=== PATIENT | male | born 1955 | race Asian ===

== ENCOUNTER 2018-01-11 14:17 | Emergency (ER) | payer SELFPAY ==
[2018-01-11 14:44] LABS: ADD MAN DIFF? NO
[2018-01-11 14:47] LABS: BASO # 0.1 x10^3/uL (0.0-0.2); BASO % 1 % (0-3); EOS # 0.3 x10^3/uL (0.0-0.7); EOS % 3 % (0-3); HEMATOCRIT 39.8 % (39.0-53.0); HEMOGLOBIN 13.2 g/dL (13.0-17.5); LYMPH # 2.4 x10^3/uL (1.0-4.8); LYMPH % 30 % (24-48); MEAN CORPUSCULAR HEMOGLOBIN 29 pg (25-35); MEAN CORPUSCULAR HGB CONC 33 g/dL (31-37); MEAN CORPUSCULAR VOLUME 88 fL (79-100); MONO # 0.9 x10^3/uL (0.0-1.1); MONO % 11 % (0-9); NEUT # 4.5 x10^3uL (1.8-7.7); NEUT % 56 % (31-73); PLATELET COUNT 216 x10^3/uL (140-400); RED BLOOD COUNT 4.55 x10^6/uL (4.30-5.70); RED CELL DISTRIBUTION WIDTH 15.3 % (11.5-14.5)
[2018-01-11] MEDS: fentaNYL PF VIAL 100 MCG/2 ML VIAL IV (14:49)
[2018-01-11 14:57] LABS: INR 2.8 (0.8-1.1); PROTHROMBIN TIME PATIENT 28.9 SEC (11.7-14.0)
[2018-01-11 15:02] LABS: ANION GAP 9 (6-14); BLOOD UREA NITROGEN 20 mg/dL (8-26); BUN/CREATININE RATIO 13 (6-20); CALCIUM 8.4 mg/dL (8.5-10.1); CARBON DIOXIDE 24 mmol/L (21-32); CHLORIDE 102 mmol/L (98-107); CREATININE 1.5 mg/dL (0.7-1.3); GFR 47.3; GLUCOSE 210 mg/dL (70-99); POTASSIUM 4.2 mmol/L (3.5-5.1); SODIUM 135 mmol/L (136-145)
[2018-01-11 15:07] LABS: ALBUMIN 3.5 g/dL (3.4-5.0); ALBUMIN/GLOBULIN RATIO 0.8 (1.0-1.7); ALK PHOS 90 U/L (46-116); ALT (SGPT) 20 U/L (16-63); AST (SGOT) 18 U/L (15-37); TOTAL BILIRUBIN 0.9 mg/dL (0.2-1.0); TOTAL PROTEIN 8.1 g/dL (6.4-8.2)
[2018-01-11 15:09] LABS: TROPONINI < 0.017 ng/mL (0.000-0.055)
== END 2018-01-11 15:58 | disposition home or self-care (01) ==
LOC: ER 14:17
DX: R07.89 Other chest pain (principal); I50.9 Heart failure, unspecified; I48.91 Unspecified atrial fibrillation; Z79.01 Long term (current) use of anticoagulants; V43.52XA Car driver injured in collision with other type car in traffic accident, initial encounter; Y93.89 Activity, other specified; Y92.488 Other paved roadways as the place of occurrence of the external cause; Y99.8 Other external cause status
CPT/HCPCS: 36415; 71045; 80053; 84484; 85025; 85610; 93005; 96374; 99285-25; J3010

== ENCOUNTER 2018-09-01 08:22 | Inpatient (IN) | payer SELFPAY ==
[~2018-09-01] VITALS: Ht 180.3 cm; Wt 111.2 kg
--- NOTE | 2018-09-01 08:38 | PHYS DOC ---
Past Medical History Past Medical History: A-Fib (atrial flutter), CHF Additional Past Surgical Histo: R eye Alcohol Use: None Drug Use: None Adult General HPI HPI Patient is a 62 year old male who presents with syncopal episode. Patient currently feels back to his normal baseline. He does have a history of atrial fibrillation and is on Coumadin for this. EMS reports that his blood pressure while supine was in the 80s, when they tried to sit him up his heart rate would go to the 120s, they were unable to obtain IV access. EMS also reports his blood sugar was 176.[] Review of Systems Review of Systems Constitutional: Denies fever or chills [] Eyes: Denies change in visual acuity, redness, or eye pain [] HENT: Denies nasal congestion or sore throat [] Respiratory: Denies cough or shortness of breath [] Cardiovascular: No chest pain or palpitations[] GI: Denies abdominal pain, nausea, vomiting, bloody stools or diarrhea [] : Denies dysuria or hematuria [] Musculoskeletal: Denies back pain or joint pain [] Integument: Denies rash or skin lesions [] Neurologic: Denies headache, focal weakness or sensory changes [] Endocrine: Denies polyuria or polydipsia [] All other systems were reviewed and found to be within normal limits, except as documented in this note. Allergies Allergies Allergies Coded Allergies Type Severity Reaction Last Updated Verified No Known Drug Allergies 01/11/18 No Physical Exam Physical Exam Constitutional: Well developed, well nourished, no acute distress, non-toxic appearance. [] HENT: Normocephalic, atraumatic, bilateral external ears normal, oropharynx moist, no oral exudates, nose normal. [] Eyes: Right eye does not react secondary to surgery, left eye reacts to light, EOMI, conjunctiva normal, no discharge. [] Neck: Normal range of motion, no tenderness, supple, no stridor. [] Cardiovascular:Heart rate is in the 50s to 60s, irregular rhythm, no murmur [] Lungs & Thorax: Bilateral breath sounds clear to auscultation [] Abdomen: Bowel sounds normal, soft, no tenderness, no masses, no pulsatile masses. [] Skin: Warm, dry, no erythema, no rash. [] Back: No tenderness, no CVA tenderness. [] Extremities: No tenderness, no cyanosis, no clubbing, ROM intact, no edema. [] Neurologic: Alert and oriented X 3, normal motor function, normal sensory function, no focal deficits noted. [] Psychologic: Affect normal, judgement normal, mood normal. [] Current Patient Data Vital Signs Vital Signs Date Time Temp Pulse Resp B/P (MAP) Pulse Ox O2 Delivery O2 Flow Rate FiO2 09/01/18 08:40 98.1 102 18 97/57 (70) 99 Room Air 98.1 Lab Values Laboratory Tests Test 09/01/18 08:40 09/01/18 08:47 09/01/18 09:00 09/01/18 09:15 White Blood Count 8.1 x10^3/uL (4.0-11.0) Red Blood Count 5.08 x10^6/uL (4.30-5.70) Hemoglobin 14.6 g/dL (13.0-17.5) Hematocrit 44.9 % (39.0-53.0) Mean Corpuscular Volume 89 fL (79-100) Mean Corpuscular Hemoglobin 29 pg (25-35) Mean Corpuscular Hemoglobin Concent 32 g/dL (31-37) Red Cell Distribution Width 14.1 % (11.5-14.5) Platelet Count 231 x10^3/uL (140-400) Neutrophils (%) (Auto) 67 % (31-73) Lymphocytes (%) (Auto) 23 % (24-48) L Monocytes (%) (Auto) 7 % (0-9) Eosinophils (%) (Auto) 3 % (0-3) Basophils (%) (Auto) 0 % (0-3) Neutrophils # (Auto) 5.4 x10^3uL (1.8-7.7) Lymphocytes # (Auto) 1.9 x10^3/uL (1.0-4.8) Monocytes # (Auto) 0.5 x10^3/uL (0.0-1.1) Eosinophils # (Auto) 0.2 x10^3/uL (0.0-0.7) Basophils # (Auto) 0.0 x10^3/uL (0.0-0.2) Sodium Level 137 mmol/L (136-145) Potassium Level 5.5 mmol/L (3.5-5.1) H Chloride Level 101 mmol/L (98-107) Carbon Dioxide Level 26 mmol/L (21-32) Anion Gap 10 (6-14) 14 mmol/L (6-14) Blood Urea Nitrogen 27 mg/dL (8-26) H Creatinine 1.5 mg/dL (0.7-1.3) H Estimated GFR (Cockcroft-Gault) 47.3 BUN/Creatinine Ratio 18 (6-20) Glucose Level 178 mg/dL (70-99) H 165 mg/dL (70-99) H Calcium Level 9.0 mg/dL (8.5-10.1) Magnesium Level 2.2 mg/dL (1.8-2.4) Total Bilirubin 0.8 mg/dL (0.2-1.0) Aspartate Amino Transferase (AST) 24 U/L (15-37) Alanine Aminotransferase (ALT) 31 U/L (16-63) Alkaline Phosphatase 98 U/L (46-116) Troponin I Quantitative < 0.017 ng/mL (0.000-0.055) OD-Gmf-N-Type Natriuretic Peptide 606 pg/mL (0-124) H Total Protein 8.4 g/dL (6.4-8.2) H Albumin 3.7 g/dL (3.4-5.0) Albumin/Globulin Ratio 0.8 (1.0-1.7) L POC Hemoglobin 15.6 g/dL (14-18) POC Hematocrit 46 % (37-52) POC Sodium 137 mmol/L (135-145) POC Potassium 5.6 mmol/L (3.5-5.0) H POC Chloride 104 mmol/L (98-110) POC Total CO2 25 mmol/L (23-32) POC Blood Urea Nitrogen 28 mg/dL (8-26) H POC Creatinine 1.4 mg/dL (0.5-1.4) POC Ionized Calcium (Merari) 1.16 mmol/L (1.13-1.32) Prothrombin Time 41.8 SEC (11.7-14.0) H Prothrombin Time INR 4.4 (0.8-1.1) H Urine Collection Type Unknown Urine Color [place] Urine Clarity Cloudy Urine pH 5.0 Urine Specific [place] 1.025 Urine Protein 30 mg/dL (NEG-TRACE) Urine Glucose (UA) Negative mg/dL (NEG) Urine Ketones (Stick) Trace mg/dL (NEG) Urine Blood Negative (NEG) Urine Nitrite Positive (NEG) Urine Bilirubin Moderate (NEG) Urine Urobilinogen Dipstick 4.0 mg/dL (0.2 mg/dL) Urine Leukocyte Esterase Small (NEG) Urine RBC Occ /HPF (0-2) Urine WBC 1-4 /HPF (0-4) Urine Squamous Epithelial Cells Mod /LPF Urine Bacteria Moderate /HPF (0-FEW) Urine Hyaline Casts Moderate /HPF Urine Mucus Marked /LPF Laboratory Tests 09/01/18 08:40 Laboratory Tests 09/01/18 08:40 09/01/18 08:47 EKG EKG EKG shows atrial flutter, rate of 58 bpm, abnormal left axis at -77, QTC of 440 ms, no ST elevations, nonspecific ST-T wave changes, no acute changes when compared with EKG of 01/11/2018[place] 0832[] Radiology/Procedures Radiology/Procedures CT HEAD INDICATION: SYNCOPE. COMPARISON: None Available. Exposure: One or more of the following individualized dose reduction techniques were utilized for this examination: 1. Automated exposure control 2. Adjustment of the mA and/or kV according to patient size 3. Use of iterative reconstruction technique TECHNIQUE: 5 mm contiguous axial images were obtained from the skull base to the vertex FINDINGS: Mild bilateral periventricular white matter hypodensities likely chronic small vessel ischemic disease. Prominent appearing extra-axial spaces in the bilateral frontal regions likely age-related cerebral atrophy changes or chronic subdural hygromas. No evidence of acute intracranial hemorrhage. No extra-axial fluid collections. No mass effect or midline shift. Ventricular size is appropriate. Basal cisterns are patent. No fractures identified.Robles-white differentiation is preserved. Air density identified in the anterior right orbital globe with fluid level in the posterior aspect of the right orbital globe. Mild mucosal thickening bilateral maxillary sinuses. IMPRESSION: 1. No acute intracranial findings. 2. Prominent appearing bilateral frontal extra-axial spaces probably age-related cerebral atrophic changes or chronic subdural hygromas. 3. Air density identified in the anterior right orbital globe with fluid level in the posterior aspect of the right orbital globe, probably chronic. EXAM: CHEST 1 VIEW History: Syncope, altered mental status COMPARISON: 01/11/2018 TECHNIQUE: Single portable radiograph of the chest FINDINGS: Unchanged mild cardiomegaly. The lungs are clear bilaterally. The costophrenic sulci are clear and well demarcated. IMPRESSION: No radiographic evidence of an acute cardiopulmonary process. [] Course & Med Decision Making Course & Med Decision Making Pertinent Labs and Imaging studies reviewed. (See chart for details) ED course: Patient arrived, was placed in bed from the EMS cot, and tolerated exam well. He was transported to and from [place] with any complications. After the return of the laboratory and imaging findings, these were discussed with the patient and family who voiced understanding. Consultation was made with the hospitalist service who graciously accepted the patient for further evaluation and treatment. Patient was admitted in improved condition. Medical decision making: Patient appears to have a syncopal episode with a history of atrial flutter. No evidence of intracranial mass or bleed, first set of cardiac enzymes are negative. Patient also appears to have urinary tract infection with nitrite-positive urine despite the relatively low white cell count. We will treat the patient with IV antibiotics keeping in mind that his INR is supratherapeutic.[] Dragon Disclaimer Dragon Disclaimer This electronic medical record was generated, in whole or in part, using a voice recognition dictation system. Departure Departure Impression: Primary Impression: Syncope Additional Impressions: Atrial flutter Urinary tract infection Supratherapeutic INR Disposition: 09 ADMITTED INPATIENT Admitting Physician: Benson Jason Condition: IMPROVED Referrals: UNKNOWN PCP NAME (PCP) Problem Qualifiers Primary Impression: Syncope Syncope type: unspecified Qualified Codes: R55 - Syncope and collapse Additional Impressions: Atrial flutter Atrial flutter type: unspecified Qualified Codes: I48.92 - Unspecified atrial flutter Urinary tract infection Urinary tract infection type: site unspecified Hematuria presence: without hematuria Qualified Codes: N39.0 - Urinary tract infection, site not specified RONNY SAUNDERS DO Sep 01, 2018 08:38
[2018-09-01 08:50] LABS: CREATININE ISTAT 1.4 mg/dL (0.5-1.4); HEMOGLOBIN ISTAT 15.6 g/dL (14-18); ION CA ISTAT 1.16 mmol/L (1.13-1.32); POTASSIUM ISTAT 5.6 mmol/L (3.5-5.0)
[2018-09-01 08:51] LABS: BASO % 0 % (0-3); EOS # 0.2 x10^3/uL (0.0-0.7); EOS % 3 % (0-3); HEMATOCRIT 44.9 % (39.0-53.0); HEMOGLOBIN 14.6 g/dL (13.0-17.5); LYMPH # 1.9 x10^3/uL (1.0-4.8); LYMPH % 23 % (24-48); MEAN CORPUSCULAR HEMOGLOBIN 29 pg (25-35); MEAN CORPUSCULAR HGB CONC 32 g/dL (31-37); MEAN CORPUSCULAR VOLUME 89 fL (79-100); MONO # 0.5 x10^3/uL (0.0-1.1); MONO % 7 % (0-9); NEUT # 5.4 x10^3uL (1.8-7.7); NEUT % 67 % (31-73); PLATELET COUNT 231 x10^3/uL (140-400); RED BLOOD COUNT 5.08 x10^6/uL (4.30-5.70); RED CELL DISTRIBUTION WIDTH 14.1 % (11.5-14.5); WHITE BLOOD COUNT 8.1 x10^3/uL (4.0-11.0)
[2018-09-01 09:02] LABS: CREATININE 1.5 mg/dL (0.7-1.3); GFR 47.3; POTASSIUM 5.5 mmol/L (3.5-5.1)
--- NOTE | 2018-09-01 09:03 | RAD ---
EXAM: CHEST 1 VIEW History: Syncope, altered mental status COMPARISON: 01/11/2018 TECHNIQUE: Single portable radiograph of the chest FINDINGS: Unchanged mild cardiomegaly. The lungs are clear bilaterally. The costophrenic sulci are clear and well demarcated. IMPRESSION: No radiographic evidence of an acute cardiopulmonary process. Electronically signed by: Juanpablo Cook MD (09/01/2018 9:00 AM) [facility]
[2018-09-01 09:07] LABS: ALBUMIN 3.7 g/dL (3.4-5.0); ALBUMIN/GLOBULIN RATIO 0.8 (1.0-1.7); MAGNESIUM 2.2 mg/dL (1.8-2.4); TOTAL BILIRUBIN 0.8 mg/dL (0.2-1.0); TOTAL PROTEIN 8.4 g/dL (6.4-8.2)
--- NOTE | 2018-09-01 09:18 | RAD ---
CT HEAD INDICATION: SYNCOPE. COMPARISON: None Available. Exposure: One or more of the following individualized dose reduction techniques were utilized for this examination: 1. Automated exposure control 2. Adjustment of the mA and/or kV according to patient size 3. Use of iterative reconstruction technique TECHNIQUE: 5 mm contiguous axial images were obtained from the skull base to the vertex FINDINGS: Mild bilateral periventricular white matter hypodensities likely chronic small vessel ischemic disease. Prominent appearing extra-axial spaces in the bilateral frontal regions likely age-related cerebral atrophy changes or chronic subdural hygromas. No evidence of acute intracranial hemorrhage. No extra-axial fluid collections. No mass effect or midline shift. Ventricular size is appropriate. Basal cisterns are patent. No fractures identified.Robles-white differentiation is preserved. Air density identified in the anterior right orbital globe with fluid level in the posterior aspect of the right orbital globe. Mild mucosal thickening bilateral maxillary sinuses. IMPRESSION: 1. No acute intracranial findings. 2. Prominent appearing bilateral frontal extra-axial spaces probably age-related cerebral atrophic changes or chronic subdural hygromas. 3. Air density identified in the anterior right orbital globe with fluid level in the posterior aspect of the right orbital globe, probably chronic. Electronically signed by: Juanpablo Cook MD (09/01/2018 9:14 AM) [facility]
[2018-09-01 09:34] LABS: BILIRUBIN,URINE MODERATE (NEG); CLARITY,URINE CLOUDY; NITRITE,URINE POSITIVE (NEG); PROTEIN,URINE 30 mg/dL (NEG-TRACE)
[2018-09-01 09:41] LABS: PROTHROMBIN TIME PATIENT 41.8 SEC (11.7-14.0)
[2018-09-01 09:42] LABS: COLOR,URINE AMBER; HYALINE CASTS, URINE MODERATE /HPF; SQUAMOUS EPITHELIAL CELL,UR MOD /LPF
[2018-09-01 09:43] LABS: RBC,URINE OCC /HPF (0-2)
[2018-09-01 09:44] LABS: BACTERIA,URINE MODERATE /HPF (0-FEW)
[2018-09-01] MEDS ORDERED: ACETAMINOPHEN 325 MG TABLET. PO PRN ×2 (10:15→12:00)
[2018-09-01] MEDS ORDERED: ONDANSETRON PF 4 MG/2 ML VIAL. IV PRN (10:15)
[2018-09-01] MEDS ORDERED: cefTRIAXone IV Push 1 GM VIAL. IVP ONE (10:15)
[2018-09-01] MEDS: IV NORMAL SALINE 1000ML BAG 1,000 ML IV SCH ×4 (10:20→21:53)
--- NOTE | 2018-09-01 11:29 | PDOC1 ---
History and Physical Date of Admission Date of Admission DATE: 09/01/18 TIME: 11:28 Identification/Chief Complaint Chief Complaint SEEN IN ER 62 year old male who presents with syncopal episode. Patient currently feels back to his normal baseline. He does have a history of atrial fibrillation and is on Coumadin CR HIGH AND K = 5.6, INR SUPRA-THERAPEUTIC, HOLD COUMADIN, KAYEXYLATE RX FAMILY STATES HE HAD LOC X 4 MINUTES, EMS CALLED NO SEIZURE ACTIVITY REPORTED Family History Family History: High Cholestrol, Hypertension Social History Smoke: No ALCOHOL: none Drugs: None Current Problem List Problem List Problems Medical Problems: (1) Atrial flutter Status: Acute (2) Supratherapeutic INR Status: Acute (3) Syncope Status: Acute (4) Urinary tract infection Status: Acute Current Medications Current Medications Current Medications Ondansetron HCl (Zofran) 4 mg PRN Q8HRS PRN IV NAUSEA/VOMITING; Start 09/01/18 at 10:15; Stop 09/02/18 at 10:14 Sodium Chloride 1,000 ml @ 100 mls/hr Q10H IV Last administered on 09/01/18at 10 :20; Start 09/01/18 at 10:04; Stop 09/02/18 at 10:03 Acetaminophen (Tylenol) 650 mg PRN Q4HRS PRN PO FEVER; Start 09/01/18 at 10:15; Stop 09/02/18 at 10:14 Ceftriaxone Sodium (Rocephin) 1 gm 1X ONCE IVP Last administered on 09/01/18at 10:18; Start 09/01/18 at 10:15; Stop 09/01/18 at 10:16; Status DC Allergies Allergies: Coded Allergies: No Known Drug Allergies (Unverified , 01/11/18) ROS Review of System Review of Systems Review of Systems Constitutional: Denies fever or chills [] Eyes: Denies change in visual acuity, redness, or eye pain [] HENT: Denies nasal congestion or sore throat [] Respiratory: Denies cough or shortness of breath [] Cardiovascular: No chest pain or palpitations[] GI: Denies abdominal pain, nausea, vomiting, bloody stools or diarrhea [] : Denies dysuria or hematuria [] Musculoskeletal: Denies back pain or joint pain [] Integument: Denies rash or skin lesions [] Neurologic: Denies headache, focal weakness or sensory changes [] Endocrine: Denies polyuria or polydipsia [] 14 PT systems were reviewed and found to be within normal limits, except as documented Physical Exam Physical Exam Physical Exam Physical Exam Constitutional: Well developed, well nourished, no acute distress, non-toxic appearance. [] HENT: Normocephalic, atraumatic, bilateral external ears normal, oropharynx moist, no oral exudates, nose normal. [] Eyes: Right eye does not react secondary to surgery, left eye reacts to light, EOMI, conjunctiva normal, no discharge. [] Neck: Normal range of motion, no tenderness, supple, no stridor. [] Cardiovascular:Heart rate is in the 50s to 60s, irregular rhythm, no murmur [] Lungs & Thorax: Bilateral breath sounds clear to auscultation [] Abdomen: Bowel sounds normal, soft, no tenderness, no masses, no pulsatile masses. [] Skin: Warm, dry, no erythema, no rash. [] Back: No tenderness, no CVA tenderness. [] Extremities: No tenderness, no cyanosis, no clubbing, ROM intact, no edema. [] Neurologic: Alert and oriented X 3, normal motor function, normal sensory function, no focal deficits noted. [] Psychologic: Affect normal, judgement normal, mood normal. [] General: Oriented X3, Cooperative, No acute distress HEENT: Mucous membr. moist/pink Lungs: Clear to auscultation, Normal air movement Heart: irregularly irregular Breasts: Not examined Abdomen: Normal bowel sounds, Soft, No tenderness, No hepatosplenomegaly Rectal Exam: not examined Extremities: No cyanosis Neuro: Normal speech, Cranial nerves 3-12 NL Psych/Mental Status: Mood NL Vitals Vitals Vital Signs Date Time Temp Pulse Resp B/P (MAP) Pulse Ox O2 Delivery O2 Flow Rate FiO2 09/01/18 08:40 98.1 102 18 97/57 (70) 99 Room Air 98.1 Labs Labs Laboratory Tests Test 09/01/18 08:40 09/01/18 08:47 09/01/18 09:00 09/01/18 09:15 White Blood Count 8.1 x10^3/uL (4.0-11.0) Red Blood Count 5.08 x10^6/uL (4.30-5.70) Hemoglobin 14.6 g/dL (13.0-17.5) Hematocrit 44.9 % (39.0-53.0) Mean Corpuscular Volume 89 fL (79-100) Mean Corpuscular Hemoglobin 29 pg (25-35) Mean Corpuscular Hemoglobin Concent 32 g/dL (31-37) Red Cell Distribution Width 14.1 % (11.5-14.5) Platelet Count 231 x10^3/uL (140-400) Neutrophils (%) (Auto) 67 % (31-73) Lymphocytes (%) (Auto) 23 % (24-48) Monocytes (%) (Auto) 7 % (0-9) Eosinophils (%) (Auto) 3 % (0-3) Basophils (%) (Auto) 0 % (0-3) Neutrophils # (Auto) 5.4 x10^3uL (1.8-7.7) Lymphocytes # (Auto) 1.9 x10^3/uL (1.0-4.8) Monocytes # (Auto) 0.5 x10^3/uL (0.0-1.1) Eosinophils # (Auto) 0.2 x10^3/uL (0.0-0.7) Basophils # (Auto) 0.0 x10^3/uL (0.0-0.2) Sodium Level 137 mmol/L (136-145) Potassium Level 5.5 mmol/L (3.5-5.1) Chloride Level 101 mmol/L (98-107) Carbon Dioxide Level 26 mmol/L (21-32) Anion Gap 10 (6-14) 14 mmol/L (6-14) Blood Urea Nitrogen 27 mg/dL (8-26) Creatinine 1.5 mg/dL (0.7-1.3) Estimated GFR (Cockcroft-Gault) 47.3 BUN/Creatinine Ratio 18 (6-20) Glucose Level 178 mg/dL (70-99) 165 mg/dL (70-99) Calcium Level 9.0 mg/dL (8.5-10.1) Magnesium Level 2.2 mg/dL (1.8-2.4) Total Bilirubin 0.8 mg/dL (0.2-1.0) Aspartate Amino Transf (AST/SGOT) 24 U/L (15-37) Alanine Aminotransferase (ALT/SGPT) 31 U/L (16-63) Alkaline Phosphatase 98 U/L (46-116) Troponin I Quantitative < 0.017 ng/mL (0.000-0.055) LQ-Vjm-X-Type Natriuretic Peptide 606 pg/mL (0-124) Total Protein 8.4 g/dL (6.4-8.2) Albumin 3.7 g/dL (3.4-5.0) Albumin/Globulin Ratio 0.8 (1.0-1.7) Bedside Hemoglobin 15.6 g/dL (14-18) Bedside Hematocrit 46 % (37-52) Bedside Sodium 137 mmol/L (135-145) Bedside Potassium 5.6 mmol/L (3.5-5.0) Bedside Chloride 104 mmol/L (98-110) Bedside Total CO2 25 mmol/L (23-32) Bedside Blood Urea Nitrogen 28 mg/dL (8-26) Bedside Creatinine 1.4 mg/dL (0.5-1.4) Bedside Ionized Calcium (Merari) 1.16 mmol/L (1.13-1.32) Prothrombin Time 41.8 SEC (11.7-14.0) Prothromb Time International Ratio 4.4 (0.8-1.1) Urine Collection Type Unknown Urine Color [place] Urine Clarity Cloudy Urine pH 5.0 Urine Specific [place] 1.025 Urine Protein 30 mg/dL (NEG-TRACE) Urine Glucose (UA) Negative mg/dL (NEG) Urine Ketones (Stick) Trace mg/dL (NEG) Urine Blood Negative (NEG) Urine Nitrite Positive (NEG) Urine Bilirubin Moderate (NEG) Urine Urobilinogen Dipstick 4.0 mg/dL (0.2 mg/dL) Urine Leukocyte Esterase Small (NEG) Urine RBC Occ /HPF (0-2) Urine WBC 1-4 /HPF (0-4) Urine Squamous Epithelial Cells Mod /LPF Urine Bacteria Moderate /HPF (0-FEW) Urine Hyaline Casts Moderate /HPF Urine Mucus Marked /LPF Laboratory Tests Test 09/01/18 08:40 09/01/18 08:47 09/01/18 09:00 09/01/18 09:15 White Blood Count 8.1 x10^3/uL (4.0-11.0) Red Blood Count 5.08 x10^6/uL (4.30-5.70) Hemoglobin 14.6 g/dL (13.0-17.5) Hematocrit 44.9 % (39.0-53.0) Mean Corpuscular Volume 89 fL (79-100) Mean Corpuscular Hemoglobin 29 pg (25-35) Mean Corpuscular Hemoglobin Concent 32 g/dL (31-37) Red Cell Distribution Width 14.1 % (11.5-14.5) Platelet Count 231 x10^3/uL (140-400) Neutrophils (%) (Auto) 67 % (31-73) Lymphocytes (%) (Auto) 23 % (24-48) Monocytes (%) (Auto) 7 % (0-9) Eosinophils (%) (Auto) 3 % (0-3) Basophils (%) (Auto) 0 % (0-3) Neutrophils # (Auto) 5.4 x10^3uL (1.8-7.7) Lymphocytes # (Auto) 1.9 x10^3/uL (1.0-4.8) Monocytes # (Auto) 0.5 x10^3/uL (0.0-1.1) Eosinophils # (Auto) 0.2 x10^3/uL (0.0-0.7) Basophils # (Auto) 0.0 x10^3/uL (0.0-0.2) Sodium Level 137 mmol/L (136-145) Potassium Level 5.5 mmol/L (3.5-5.1) Chloride Level 101 mmol/L (98-107) Carbon Dioxide Level 26 mmol/L (21-32) Anion Gap 10 (6-14) 14 mmol/L (6-14) Blood Urea Nitrogen 27 mg/dL (8-26) Creatinine 1.5 mg/dL (0.7-1.3) Estimated GFR (Cockcroft-Gault) 47.3 BUN/Creatinine Ratio 18 (6-20) Glucose Level 178 mg/dL (70-99) 165 mg/dL (70-99) Calcium Level 9.0 mg/dL (8.5-10.1) Magnesium Level 2.2 mg/dL (1.8-2.4) Total Bilirubin 0.8 mg/dL (0.2-1.0) Aspartate Amino Transf (AST/SGOT) 24 U/L (15-37) Alanine Aminotransferase (ALT/SGPT) 31 U/L (16-63) Alkaline Phosphatase 98 U/L (46-116) Troponin I Quantitative < 0.017 ng/mL (0.000-0.055) MY-Ifg-E-Type Natriuretic Peptide 606 pg/mL (0-124) Total Protein 8.4 g/dL (6.4-8.2) Albumin 3.7 g/dL (3.4-5.0) Albumin/Globulin Ratio 0.8 (1.0-1.7) Bedside Hemoglobin 15.6 g/dL (14-18) Bedside Hematocrit 46 % (37-52) Bedside Sodium 137 mmol/L (135-145) Bedside Potassium 5.6 mmol/L (3.5-5.0) Bedside Chloride 104 mmol/L (98-110) Bedside Total CO2 25 mmol/L (23-32) Bedside Blood Urea Nitrogen 28 mg/dL (8-26) Bedside Creatinine 1.4 mg/dL (0.5-1.4) Bedside Ionized Calcium (Merari) 1.16 mmol/L (1.13-1.32) Prothrombin Time 41.8 SEC (11.7-14.0) Prothromb Time International Ratio 4.4 (0.8-1.1) Urine Collection Type Unknown Urine Color [place] Urine Clarity Cloudy Urine pH 5.0 Urine Specific [place] 1.025 Urine Protein 30 mg/dL (NEG-TRACE) Urine Glucose (UA) Negative mg/dL (NEG) Urine Ketones (Stick) Trace mg/dL (NEG) Urine Blood Negative (NEG) Urine Nitrite Positive (NEG) Urine Bilirubin Moderate (NEG) Urine Urobilinogen Dipstick 4.0 mg/dL (0.2 mg/dL) Urine Leukocyte Esterase Small (NEG) Urine RBC Occ /HPF (0-2) Urine WBC 1-4 /HPF (0-4) Urine Squamous Epithelial Cells Mod /LPF Urine Bacteria Moderate /HPF (0-FEW) Urine Hyaline Casts Moderate /HPF Urine Mucus Marked /LPF Images Images CT HEAD INDICATION: SYNCOPE. COMPARISON: None Available. Exposure: One or more of the following individualized dose reduction techniques were utilized for this examination: 1. Automated exposure control 2. Adjustment of the mA and/or kV according to patient size 3. Use of iterative reconstruction technique TECHNIQUE: 5 mm contiguous axial images were obtained from the skull base to the vertex FINDINGS: Mild bilateral periventricular white matter hypodensities likely chronic small vessel ischemic disease. Prominent appearing extra-axial spaces in the bilateral frontal regions likely age-related cerebral atrophy changes or chronic subdural hygromas. No evidence of acute intracranial hemorrhage. No extra-axial fluid collections. No mass effect or midline shift. Ventricular size is appropriate. Basal cisterns are patent. No fractures identified.Robles-white differentiation is preserved. Air density identified in the anterior right orbital globe with fluid level in the posterior aspect of the right orbital globe. Mild mucosal thickening bilateral maxillary sinuses. IMPRESSION: 1. No acute intracranial findings. 2. Prominent appearing bilateral frontal extra-axial spaces probably age-related cerebral atrophic changes or chronic subdural hygromas. 3. Air density identified in the anterior right orbital globe with fluid level in the posterior aspect of the right orbital globe, probably chronic. Electronically signed by: Juanpablo Cook MD (09/01/2018 9:14 AM) [facility] VTE Prophylaxis Ordered VTE Prophylaxis Devices: No VTE Pharmacological Prophylaxi: Yes Assessment/Plan Assessment/Plan IMPRESSION 1. SYNCOPAL EPISODE WITH LOC X 4 MIN 2. MORBID OBESITY 3. Prominent appearing bilateral frontal extra-axial spaces probably age-related cerebral atrophic changes VS chronic subdural hygromas. 4. HYPERKALEMIA 5. ARF/ ACUTE TUBULAR NECROSIS 6. UTI 7. A-FLUTTER 8. ALTERED MENTAL STATUS 9, supratherapeutic inr PLAN CVC ADMIT ECHO CARDIOLOGY CONSULT to exclude significant arrhythmia causing syncope ECHO NEUROLOGY CONSULT possible seizure vs tia, vs cva DOPPLER CAROTIDS NEUROCHECKS Q 4 HRS URINE CULT IV ROCEPHIN FOLLOW RENAL FXN nephrology consult re ATN/ ARF EEG hold warfarin, daily INR T4 BASED ON MY PERSONAL REVIEW OF CHART reg admit needed to eval several factors contributing to LOC DAWIT MULLINS MD Sep 01, 2018 11:29
[2018-09-01 11:30] VITALS: BP 116/78
[2018-09-01 11:32] VITALS: BP 99/65
[2018-09-01 11:35] VITALS: BP 86/63
[2018-09-01] MEDS ORDERED: cloNIDine HCL 0.1 MG TABLET PO PRN (12:00)
[2018-09-01] MEDS ORDERED: guaiFENesin ORAL 200 MG/10 ML LIQUID. PO PRN (12:00)
[2018-09-01] MEDS ORDERED: ALBUTEROL SULFATE 2.5 MG/3 ML NEBU. NEB PRN (12:00)
[2018-09-01] MEDS ORDERED: DOCUSATE SODIUM 100 MG CAPSULE. PO PRN (12:00)
[2018-09-01] MEDS ORDERED: MAG HYDROX/ALUMINUM HYD/SIMETH 30 ML ORAL.SUSP PO PRN (12:00)
[2018-09-01] MEDS ORDERED: SODIUM POLYSTYRENE SULFONATE 15 GM/60 ML ORAL.SUSP. PO ONE (12:00)
[2018-09-01] MEDS ORDERED: SODIUM PHOSPHATES 19/7GM 133 ML ENEMA. PR PRN (12:00)
[2018-09-01] MEDS ORDERED: ACETAMINOPHEN 650 MG/20.3 ML SOLUTION. GT PRN (12:00)
[2018-09-01] MEDS ORDERED: LOSA-73 PO (13:10)
[2018-09-01] MEDS ORDERED: SPIR25TA5 PO (13:10)
[2018-09-01] MEDS ORDERED: GABA300C18 PO (13:10)
[2018-09-01] MEDS ORDERED: INSU100I13 SQ (13:10)
[2018-09-01] MEDS ORDERED: WARF-31 PO (13:10)
[2018-09-01] MEDS ORDERED: INSU100I17 SQ (13:10)
[2018-09-01] MEDS ORDERED: CARV12.511 PO (13:10)
[2018-09-01] MEDS ORDERED: GABA600T7 PO (13:10)
[2018-09-01] MEDS ORDERED: WARF2.5T71 PO (13:10)
[2018-09-01] MEDS ORDERED: CARV25TA2 PO (13:10)
[2018-09-01] MEDS ORDERED: SIMV20TA3 PO (13:10)
[2018-09-01] MEDS ORDERED: FURO20TA3 PO (13:10)
[2018-09-01] MEDS ORDERED: TIMO10DR5 RIGHTEYE (13:44)
[2018-09-01] MEDS ORDERED: ATRO2DRO3 RIGHTEYE (13:44)
[2018-09-01] MEDS ORDERED: BRIM5DRO3 RIGHTEYE (13:44)
[2018-09-01] MEDS ORDERED: PRED5DRO16 RIGHTEYE (13:44)
[2018-09-01] MEDS ORDERED: DEXTROSE 50% 25 GM / 50ML DISP.SYRIN. IV PRN (14:15)
--- NOTE | 2018-09-01 14:31 | PDOC2 ---
NEUROLOGY CONSULT Date of Admission Date of Admission DATE: 09/01/18 TIME: 14:11 Reason for Consult Reason for Consult: IMPRESSION: Syncope. Seizure evaluation. Hypotension events. Tachycardia. AFib. CHF. DM. HTN. Renal insufficiency. Obesity. Cerebral atrophy. RECOMMENDATIONS/PLAN: EEG. Please consult cardiology. He has been treated with Coumadin, INR too high 4.4. Lab: see orders. Discussed with his and daughters at bedside on 09/01/18. HCT: No intracranial abnormal findings except right orbital globe air and fluid level (s/p right eye surgery) HISTORY OF THE PRESENT ILLNESS: 62-y-old [place] origin male patient with above medical and cardiac diseases has been treated with Coumadin for AFib. He got up un the morning to go bathroom , but felt dizzy. His family helped to prevent fall. He was noted LOC and stiffness for seconds then floppy. Family called 911, and he was instructed to out on the floor and he gained consciousness. No obvious postictal state. PAST MEDICAL HISTORY: AFib. CHF. HTN. DM. Obesity. PAST SURGERY HISTORY: Right eye surgery about 3 weeks ago reportedly had bleeding in eye per his daughter. ALLERGY: Unknown MEDICATIONS: Refer to [facility] FAMILY HISTORY: Obesity. SOCIAL HISTORY: Lives with his family at home. Denies smoking, drinking, and illicit drug use. REVIEW OF SYSTEMS: Constitutional: Obesity. Head: No traumatic brain or head injury. Skin: No edema, or rash. Ear: No infection. Eyes: Right eye surgery about 3 weeks ago.. Nose: No bleeding or purulent discharges. Hearing: No hearing decrease. Neck: No injury. Cardiac: AFib, HTN. Pulmonary: No COPD. GI: No GI ulcer, GI bleeding. Urinary/genital: No dysuria, incontinence, urinary retention. Endocrinologic: Diabetes Mellitus, obesity. Skeletomuscular: No muscular atrophy. Neurological: see HP. Psychiatric: Denies drug use/abuse. Otherwise, not -diozn review of systems. PHYSICAL EXAMINATION: General appearance is in subacute distress. HEENT: Normocephalic and nontraumatic. Eyes, nose, ears, and throat are unremarkable. Neck is supple. No lymphadenopathy. No crepitus. Cardiovascular: S1, S2. Pulmonary: Clear to auscultation bilaterally. Abdomen: Bowel sounds are positive. Extremities: No rash, lesions, or edema. No restriction of range of motion NEUROLOGICAL EXAMINATION: Drowsiness. Not fully oriented to time, but knew place and person. PERRL. EOMI. CN: no focal findings. Muscle tone: within normal. Muscle strength: 5 DTR: 1+ due to obesity. Plantar reflex: Flexor response bilaterally Gait: not examined in bed. Sensory exam: no abnormal findings. No acute cerebellar signs elicited. F-T-N test fine. Current Medications Current Medications Current Medications Ondansetron HCl (Zofran) 4 mg PRN Q8HRS PRN IV NAUSEA/VOMITING; Start 09/01/18 at 10:15; Stop 09/02/18 at 10:14 Sodium Chloride 1,000 ml @ 100 mls/hr Q10H IV Last administered on 09/01/18at 10 :20; Start 09/01/18 at 10:04; Stop 09/02/18 at 10:03 Acetaminophen (Tylenol) 650 mg PRN Q4HRS PRN PO FEVER; Start 09/01/18 at 10:15; Stop 09/02/18 at 10:14 Ceftriaxone Sodium (Rocephin) 1 gm 1X ONCE IVP Last administered on 09/01/18at 10:18; Start 09/01/18 at 10:15; Stop 09/01/18 at 10:16; Status DC Ceftriaxone Sodium (Rocephin) 1 gm Q24H IVP ; Start 09/02/18 at 10:00 Sodium Polystyrene Sulfonate (Kayexalate) 30 gm 1X ONCE PO ; Start 09/01/18 at 12:00; Stop 09/01/18 at 12:01; Status DC Sodium Chloride 1,000 ml @ 100 mls/hr Q10H IV ; Start 09/01/18 at 11:53 Acetaminophen (Tylenol) 650 mg PRN Q4HRS PRN PO TEMP OVER 100.4F OR MILD PAIN; Start 09/01/18 at 12:00 Acetaminophen (Tylenol) 650 mg PRN Q4HRS PRN GT TEMP OVER 100.4F OR MILD PAIN; Start 09/01/18 at 12:00 Al Hydroxide/Mg Hydroxide (Mylanta Plus Xs) 30 ml PRN DAILY PRN PO HEARTBURN / GAS; Start 09/01/18 at 12:00 Clonidine HCl (Catapres) 0.1 mg PRN Q6HRS PRN PO SBP>160 OR DBP>90; Start at 12:00 Sodium Monofluorophosphate (Fleet Adult) 133 ml PRN DAILY PRN [place] CONSTIPATION; Start 09/01/18 at 12:00 Docusate Sodium (Colace) 100 mg PRN BID PRN PO CONSTIPATION; Start 09/01/18 at 12:00 Albuterol Sulfate (Ventolin Neb Soln) 2.5 mg PRN Q4HRS PRN NEB SHORTNESS OF BREATH; Start 09/01/18 at 12:00 Guaifenesin (Robitussin) 200 mg PRN Q4HRS PRN PO COUGH; Start 09/01/18 at 12:00 Active Scripts Active Reported Alphagan P (Brimonidine Tartrate) 5 Ml Drops 1 Drop RIGHTEYE TID Timoptic 0.5% (Timolol Maleate) 10 Ml Drops 1 Drop RIGHTEYE TID Prednisolone Acetate 5 Ml Drops.susp 1 Drop RIGHTEYE QID Atropine Sulfate 2 Ml Drops 1 Drop RIGHTEYE BID Lantus Solostar (Insulin Glargine,Hum.rec.anlog) 100 Unit/1 Ml Insuln.pen 58 Unit SQ QHS Novolog Flexpen (Insulin Aspart) 100 Unit/1 Ml Insuln.pen 28 Unit SQ TIDWMEALS Furosemide 20 Mg Tablet 60 Mg PO QMWF Spironolactone 25 Mg Tablet 1 Tab PO DAILY Carvedilol (Carvedilol) 12.5 Mg Tablet 18.75 Mg PO BIDWMEALS Losartan Potassium 50 Mg Tablet 50 Mg PO DAILY Warfarin Sodium 2.5 Mg Tablet 2.5 Mg PO QMTH Warfarin Sodium 5 Mg Tablet 5 Mg PO QTUTHSASU Gabapentin 600 Mg Tablet 600 Mg PO QHS Gabapentin (Gabapentin) 300 Mg Capsule 300 Mg PO BIDWMEALS Allergies Allergies: Allergies Coded Allergies Type Severity Reaction Last Updated Verified No Known Drug Allergies 01/11/18 No ROS Review of System The patient denies any associated fevers, chills, headache, ear pain, rhinorrhea , sore throat, stiff neck, productive cough, chest pain, shortness of breath, back or flank pain, abdominal pain, nausea, vomiting, diarrhea, constipation, dysuria, rash, numbness, weakness, tingling, incontinence, difficulty ambulating, or diaphoresis. Physical Exam Physical Exam General: Well developed, well nourished, no acute distress, well appearing HEENT: Pupils equally round and reactive to light, EOMI, no discharge, normal conjunctiva Neck: Supple, no nuchal rigidity, no JVD, trachea midline, no tenderness Cardiac: RRR, no murmurs, no gallops, no rubs Chest/Lungs: CTAB, no wheeze, no rhonchi, no crackles Abdomen: soft, non-distended, no guarding, no peritoneal signs, non-tender Back: No tenderness Extremities: no edema, pulses intact, non-tender,capillary refill <3 sec bilateral upper and lower extremities, Neuro: Alert and oriented x 4, no focal deficits, normal speech Vitals Vitals: Vital Signs Date Time Temp Pulse Resp B/P (MAP) Pulse Ox O2 Delivery O2 Flow Rate FiO2 09/01/18 11:35 116 18 86/63 (71) 97 Room Air 09/01/18 08:40 98.1 98.1 Labs Labs Laboratory Tests Test 09/01/18 08:40 09/01/18 08:47 09/01/18 09:00 09/01/18 09:15 White Blood Count 8.1 x10^3/uL (4.0-11.0) Red Blood Count 5.08 x10^6/uL (4.30-5.70) Hemoglobin 14.6 g/dL (13.0-17.5) Hematocrit 44.9 % (39.0-53.0) Mean Corpuscular Volume 89 fL (79-100) Mean Corpuscular Hemoglobin 29 pg (25-35) Mean Corpuscular Hemoglobin Concent 32 g/dL (31-37) Red Cell Distribution Width 14.1 % (11.5-14.5) Platelet Count 231 x10^3/uL (140-400) Neutrophils (%) (Auto) 67 % (31-73) Lymphocytes (%) (Auto) 23 % (24-48) Monocytes (%) (Auto) 7 % (0-9) Eosinophils (%) (Auto) 3 % (0-3) Basophils (%) (Auto) 0 % (0-3) Neutrophils # (Auto) 5.4 x10^3uL (1.8-7.7) Lymphocytes # (Auto) 1.9 x10^3/uL (1.0-4.8) Monocytes # (Auto) 0.5 x10^3/uL (0.0-1.1) Eosinophils # (Auto) 0.2 x10^3/uL (0.0-0.7) Basophils # (Auto) 0.0 x10^3/uL (0.0-0.2) Sodium Level 137 mmol/L (136-145) Potassium Level 5.5 mmol/L (3.5-5.1) Chloride Level 101 mmol/L (98-107) Carbon Dioxide Level 26 mmol/L (21-32) Anion Gap 10 (6-14) 14 mmol/L (6-14) Blood Urea Nitrogen 27 mg/dL (8-26) Creatinine 1.5 mg/dL (0.7-1.3) Estimated GFR (Cockcroft-Gault) 47.3 BUN/Creatinine Ratio 18 (6-20) Glucose Level 178 mg/dL (70-99) 165 mg/dL (70-99) Calcium Level 9.0 mg/dL (8.5-10.1) Magnesium Level 2.2 mg/dL (1.8-2.4) Total Bilirubin 0.8 mg/dL (0.2-1.0) Aspartate Amino Transf (AST/SGOT) 24 U/L (15-37) Alanine Aminotransferase (ALT/SGPT) 31 U/L (16-63) Alkaline Phosphatase 98 U/L (46-116) Troponin I Quantitative < 0.017 ng/mL (0.000-0.055) RW-Aif-N-Type Natriuretic Peptide 606 pg/mL (0-124) Total Protein 8.4 g/dL (6.4-8.2) Albumin 3.7 g/dL (3.4-5.0) Albumin/Globulin Ratio 0.8 (1.0-1.7) Bedside Hemoglobin 15.6 g/dL (14-18) Bedside Hematocrit 46 % (37-52) Bedside Sodium 137 mmol/L (135-145) Bedside Potassium 5.6 mmol/L (3.5-5.0) Bedside Chloride 104 mmol/L (98-110) Bedside Total CO2 25 mmol/L (23-32) Bedside Blood Urea Nitrogen 28 mg/dL (8-26) Bedside Creatinine 1.4 mg/dL (0.5-1.4) Bedside Ionized Calcium (Merari) 1.16 mmol/L (1.13-1.32) Prothrombin Time 41.8 SEC (11.7-14.0) Prothromb Time International Ratio 4.4 (0.8-1.1) Urine Collection Type Unknown Urine Color [place] Urine Clarity Cloudy Urine pH 5.0 Urine Specific [place] 1.025 Urine Protein 30 mg/dL (NEG-TRACE) Urine Glucose (UA) Negative mg/dL (NEG) Urine Ketones (Stick) Trace mg/dL (NEG) Urine Blood Negative (NEG) Urine Nitrite Positive (NEG) Urine Bilirubin Moderate (NEG) Urine Urobilinogen Dipstick 4.0 mg/dL (0.2 mg/dL) Urine Leukocyte Esterase Small (NEG) Urine RBC Occ /HPF (0-2) Urine WBC 1-4 /HPF (0-4) Urine Squamous Epithelial Cells Mod /LPF Urine Bacteria Moderate /HPF (0-FEW) Urine Hyaline Casts Moderate /HPF Urine Mucus Marked /LPF Test 09/01/18 11:58 Glucose (Fingerstick) 177 mg/dL (70-99) Laboratory Tests Test 09/01/18 08:40 09/01/18 08:47 09/01/18 09:00 09/01/18 09:15 White Blood Count 8.1 x10^3/uL (4.0-11.0) Red Blood Count 5.08 x10^6/uL (4.30-5.70) Hemoglobin 14.6 g/dL (13.0-17.5) Hematocrit 44.9 % (39.0-53.0) Mean Corpuscular Volume 89 fL (79-100) Mean Corpuscular Hemoglobin 29 pg (25-35) Mean Corpuscular Hemoglobin Concent 32 g/dL (31-37) Red Cell Distribution Width 14.1 % (11.5-14.5) Platelet Count 231 x10^3/uL (140-400) Neutrophils (%) (Auto) 67 % (31-73) Lymphocytes (%) (Auto) 23 % (24-48) Monocytes (%) (Auto) 7 % (0-9) Eosinophils (%) (Auto) 3 % (0-3) Basophils (%) (Auto) 0 % (0-3) Neutrophils # (Auto) 5.4 x10^3uL (1.8-7.7) Lymphocytes # (Auto) 1.9 x10^3/uL (1.0-4.8) Monocytes # (Auto) 0.5 x10^3/uL (0.0-1.1) Eosinophils # (Auto) 0.2 x10^3/uL (0.0-0.7) Basophils # (Auto) 0.0 x10^3/uL (0.0-0.2) Sodium Level 137 mmol/L (136-145) Potassium Level 5.5 mmol/L (3.5-5.1) Chloride Level 101 mmol/L (98-107) Carbon Dioxide Level 26 mmol/L (21-32) Anion Gap 10 (6-14) 14 mmol/L (6-14) Blood Urea Nitrogen 27 mg/dL (8-26) Creatinine 1.5 mg/dL (0.7-1.3) Estimated GFR (Cockcroft-Gault) 47.3 BUN/Creatinine Ratio 18 (6-20) Glucose Level 178 mg/dL (70-99) 165 mg/dL (70-99) Calcium Level 9.0 mg/dL (8.5-10.1) Magnesium Level 2.2 mg/dL (1.8-2.4) Total Bilirubin 0.8 mg/dL (0.2-1.0) Aspartate Amino Transf (AST/SGOT) 24 U/L (15-37) Alanine Aminotransferase (ALT/SGPT) 31 U/L (16-63) Alkaline Phosphatase 98 U/L (46-116) Troponin I Quantitative < 0.017 ng/mL (0.000-0.055) MA-Jqv-Q-Type Natriuretic Peptide 606 pg/mL (0-124) Total Protein 8.4 g/dL (6.4-8.2) Albumin 3.7 g/dL (3.4-5.0) Albumin/Globulin Ratio 0.8 (1.0-1.7) Bedside Hemoglobin 15.6 g/dL (14-18) Bedside Hematocrit 46 % (37-52) Bedside Sodium 137 mmol/L (135-145) Bedside Potassium 5.6 mmol/L (3.5-5.0) Bedside Chloride 104 mmol/L (98-110) Bedside Total CO2 25 mmol/L (23-32) Bedside Blood Urea Nitrogen 28 mg/dL (8-26) Bedside Creatinine 1.4 mg/dL (0.5-1.4) Bedside Ionized Calcium (Merari) 1.16 mmol/L (1.13-1.32) Prothrombin Time 41.8 SEC (11.7-14.0) Prothromb Time International Ratio 4.4 (0.8-1.1) Urine Collection Type Unknown Urine Color Louisa Urine Clarity Cloudy Urine pH 5.0 Urine Specific [place] 1.025 Urine Protein 30 mg/dL (NEG-TRACE) Urine Glucose (UA) Negative mg/dL (NEG) Urine Ketones (Stick) Trace mg/dL (NEG) Urine Blood Negative (NEG) Urine Nitrite Positive (NEG) Urine Bilirubin Moderate (NEG) Urine Urobilinogen Dipstick 4.0 mg/dL (0.2 mg/dL) Urine Leukocyte Esterase Small (NEG) Urine RBC Occ /HPF (0-2) Urine WBC 1-4 /HPF (0-4) Urine Squamous Epithelial Cells Mod /LPF Urine Bacteria Moderate /HPF (0-FEW) Urine Hyaline Casts Moderate /HPF Urine Mucus Marked /LPF Test 09/01/18 11:58 Glucose (Fingerstick) 177 mg/dL (70-99) JOHN ESPINOZA MD Sep 01, 2018 14:31
[2018-09-01 15:00] VITALS: BP 127/70
--- NOTE | 2018-09-01 16:26 | RAD ---
Clinical Indications: Syncope. Exam : Carotid Duplex with Grayscale Ultrasound and Spectral and Color Doppler Analysis: PQRS Compliance Statement - Stenosis calculations for CT, MR and conventional angiography are based upon measurement of the distal ICA diameter in accordance with the NASCET methodology. Stenosis calculations for carotid ultrasound studies are derived from validated velocity criteria which are known to correlate with the NASCET methodology. Comparison study: None available. Findings: The common, internal and external carotid arteries were examined by grayscale, color and spectral Doppler ultrasound. Mild intimal thickening with the soft plaque identified in the bilateral common carotid arteries. Flow in both vertebral arteries was antegrade and normal. The following are the velocities and ratios in the carotid arteries on both sides: RIGHT ICA PV: 56cm/sec RIGHT CCA PV: 69cm/sec RIGHT ICA ED: 21cm/sec RIGHT IC/CCPV: 0.9 RIGHT VERTEBRAL: antegrade flow RIGHT % STENOSIS: Less than 50 percent LEFT ICA PV: 51cm/sec LEFT CCA PV: 61cm/sec LEFT ICA ED: 23cm/sec LEFT IC/CCPV: 0.9 LEFT VERTEBRAL: antegrade flow LEFT % STENOSIS: Less than 50 percent <50% ICA Stenosis: PSV < 125cm/s (EDV < 40cm/s; SVR < 2.0) 50-69% ICA Stenosis: PSV < 125-229cm/s (EDV 40-99cm/s; SVR 2.0-3.9) >70% ICA Stenosis: PSV > 230cm/s (EDV >100cm/s; SVR >4.0) Impression: No evidence of hemodynamic significant stenosis.. Electronically signed by: Juanpablo Cook MD (09/01/2018 4:23 PM) [facility]
[2018-09-01] MEDS: GABAPENTIN 300 MG CAPSULE. PO SCH ×2 (17:03→20:14)
[2018-09-01] MEDS: CARVEDILOL 12.5 MG TABLET. PO SCH (17:06)
[2018-09-01] MEDS: DEXAMETHASONE 0.1% OPHTH SOLUTION 5ML BOTTLE. OD SCH ×2 (17:07→19:57)
[2018-09-01] MEDS: INSULIN LISPRO 300 UNITS/3 ML INSULN.PEN. SQ SCH (17:15)
--- NOTE | 2018-09-01 17:26 | EKG ---
[facility] [address] [place] [address] Test Date: 2018-09-01 Test Time: 08:29:32 Pat Name: TAMICA RAMIREZ Department: Room: 208 1 Gender: M Skoog Machine Operator: : [id number] Requested By: RONNY SAUNDERS Order Number: [id number] Reading MD: Zhang Magaña MD Measurements Intervals [place] Rate: 58 P: NV: QRS: -77 QRSD: 114 T: 58 QT: 444 QTc: 440 Interpretive Statements ATRIAL FLUTTER 4:1 CONDUCTION LAD POOR R WAVE PROGRESSION Electronically Signed On 09-03-2018 7:00:48 BOOTH OPERATOR by Zhang Magaña MD
--- NOTE | 2018-09-01 17:31 | NUR ---
The patient, TAMICA RAMIREZ, 62 y/o, M admitted by DAWIT MULLINS MD, was given written information regarding hospital policies, unit procedures and contact persons. Family at bedside to translate, patient is [place] and primary language is [place]. Spoke with patient and family about fall precautions d/t dizziness, verbalized understanding. Patient daughter brought medications from home, nurse reviewed medications with patient at bedside. When checking patient medications bugs were found in the bag, requested that all personal belongings be taken home. EVS notified. Valuables were checked and bagged for family to take home. Patient goes to [facility] and sees Dr. Morales.
[2018-09-01 19:45] VITALS: BP 119/69
[2018-09-01] MEDS: TIMOLOL 0.5% OPHTH SOLUTION 5ML BOTTLE. OD SCH (19:57)
[2018-09-01] MEDS: BRIMONIDINE 0.2% OPHTH SOLUTION 5ML BOTTLE. OD SCH (19:57)
[2018-09-01] MEDS: ATROPINE 1% OPHTH SOLUTION 5ML BOTTLE. OD SCH (19:58)
[2018-09-01] MEDS: INSULIN GLARGINE 300 UNITS/3 ML INSULN.PEN. SQ SCH (21:16)
[2018-09-01 23:10] VITALS: BP 115/75
[2018-09-02] VITALS (7 sets, daily range): BP systolic 97–140; BP diastolic 57–95
--- NOTE | 2018-09-02 01:31 | CONS ---
DATE OF CONSULTATION: REQUESTING PHYSICIAN: Hospitalist. REASON FOR CONSULTATION: Renal failure. HISTORY OF PRESENT ILLNESS: This is a 62-year-old gentleman with history of diabetes mellitus and hypertension. No known history of chronic kidney disease. ____ to the hospital with syncopal episode and is currently admitted for further evaluation and management of the same. There is no history of nephrolithiasis, gross hematuria, difficulty in urination. No history of NSAID use. PAST MEDICAL HISTORY: Diabetes mellitus, hypertension, atrial fibrillation, congestive cardiomyopathy. ALLERGIES: None. MEDICATIONS: Reviewed per med list. FAMILY HISTORY: Noncontributory. SOCIAL HISTORY: , resides with his . Family is at bedside. REVIEW OF SYSTEMS: No headache, sinus problem, nasal drainage, epistaxis. Difficulty with swallowing, chest pain, shortness of breath, PND, orthopnea, dyspnea on exertion. No abdominal pain. No nausea, vomiting, diarrhea, seizures or malignancies. PHYSICAL EXAMINATION: GENERAL: The patient awake, conversant. HEENT: Clear. NECK: No increased JVD. No thyromegaly, mass or adenopathy. LUNGS: Clear. CARDIAC: Without S3 or rub. ABDOMEN: Obese. Bowel sounds are present. Nontender. EXTREMITIES: Without edema. NEUROLOGIC: Nonfocal, localizing. PSYCHIATRIC: Fair attention to detail, appropriate affect. LABORATORY DATA: Sodium 137, potassium 5.5, chloride 101, CO2 26, BUN 27, creatinine 1.5, hemoglobin 14.6, hematocrit 44.9, white count 8.1. Glucose 165. IMPRESSION: 1. Renal failure, acute versus chronic. May have an underlying chronic kidney disease based on hypertensive nephrosclerosis and/or diabetic nephropathy. Also, may have acute injury in the setting of syncopal episode. 2. Syncope -- history of atrial flutter. 3. Urinary tract infection. RECOMMENDATIONS: 1. Agree with antibiotic for urinary tract infection, pending culture results. 2. Maintain adequate hydration. 3. Cardiac evaluation as you are doing. CALEB BARKLEY MD DR: MAIKOL/ras JOB#: [id number] / [id number]
[2018-09-02] MEDS: IV NORMAL SALINE 1000ML BAG 1,000 ML IV SCH ×3 (05:19→17:50)
[2018-09-02] MEDS: BRIMONIDINE 0.2% OPHTH SOLUTION 5ML BOTTLE. OD SCH ×3 (05:35→20:55)
[2018-09-02 07:22] LABS: PROTHROMBIN TIME PATIENT 41.8 SEC (11.7-14.0)
[2018-09-02 07:24] LABS: BASO # 0.1 x10^3/uL (0.0-0.2); BASO % 1 % (0-3); EOS # 0.3 x10^3/uL (0.0-0.7); EOS % 4 % (0-3); HEMATOCRIT 43.3 % (39.0-53.0); LYMPH # 2.3 x10^3/uL (1.0-4.8); LYMPH % 30 % (24-48); MEAN CORPUSCULAR HEMOGLOBIN 29 pg (25-35); MEAN CORPUSCULAR HGB CONC 32 g/dL (31-37); MEAN CORPUSCULAR VOLUME 88 fL (79-100); MONO # 0.7 x10^3/uL (0.0-1.1); MONO % 8 % (0-9); NEUT # 4.4 x10^3uL (1.8-7.7); NEUT % 57 % (31-73); PLATELET COUNT 216 x10^3/uL (140-400); RED CELL DISTRIBUTION WIDTH 14.5 % (11.5-14.5); WHITE BLOOD COUNT 7.8 x10^3/uL (4.0-11.0)
[2018-09-02 07:38] LABS: ALBUMIN 3.3 g/dL (3.4-5.0); ALBUMIN/GLOBULIN RATIO 0.7 (1.0-1.7); CALCIUM 8.6 mg/dL (8.5-10.1); CREATININE 1.1 mg/dL (0.7-1.3); GFR 67.6; POTASSIUM 4.5 mmol/L (3.5-5.1); TOTAL BILIRUBIN 0.8 mg/dL (0.2-1.0); TOTAL PROTEIN 8.3 g/dL (6.4-8.2)
[2018-09-02] MEDS: INSULIN LISPRO 300 UNITS/3 ML INSULN.PEN. SQ SCH ×3 (08:00→17:47)
[2018-09-02 08:34] LABS: CHOLESTEROL/HDL RATIO 2.5
[2018-09-02] MEDS: GABAPENTIN 300 MG CAPSULE. PO SCH ×3 (08:42→20:55)
[2018-09-02] MEDS: SPIRONOLACTONE 25 MG TABLET PO SCH (08:43)
[2018-09-02] MEDS: LOSARTAN POTASSIUM 50 MG TABLET. PO SCH (08:43)
[2018-09-02] MEDS: CARVEDILOL 12.5 MG TABLET. PO SCH ×2 (08:43→17:43)
[2018-09-02] MEDS: DEXAMETHASONE 0.1% OPHTH SOLUTION 5ML BOTTLE. OD SCH ×4 (08:44→20:55)
[2018-09-02] MEDS: ATROPINE 1% OPHTH SOLUTION 5ML BOTTLE. OD SCH ×2 (08:45→20:55)
[2018-09-02] MEDS: cefTRIAXone IV Push 1 GM VIAL. IVP SCH (08:46)
[2018-09-02] MEDS: TIMOLOL 0.5% OPHTH SOLUTION 5ML BOTTLE. OD SCH ×3 (08:52→20:55)
--- NOTE | 2018-09-02 09:05 | EEG ---
DATE OF SERVICE: 09/02/2018 EEG NUMBER: [id number]. OBJECTIVE: The patient is a 62-year-old male with syncope. DESCRIPTION OF PROCEDURE: This is a digital study. Electrodes are placed according to the international 10-20 system. Bipolar and referential montages are available. Activation procedures typically include hyperventilation and intermittent photic stimulation. INTERPRETATION: The waking background consists of 9-10 Hz, 50-100 microvolt activity, symmetrically distributed over parietooccipital regions and reactive to eye opening. Hyperventilation and intermittent photic stimulation are noncontributory. Stage 1 sleep is achieved with normal electroencephalogram patterns. IMPRESSION: This electroencephalogram with the patient awake and asleep is within normal limits. There is no focal, paroxysmal or epileptiform activity. Thank you for letting us help with the patient's care. SUNNI QUEZADA MD DR: LIONEL/ras JOB#: [id number] / [id number] DR PRASAD Vidales NORIKO DO
--- NOTE | 2018-09-02 09:49 | PDOC ---
SUBJECTIVE ROS No new concerns OBJECTIVE Vital Signs Vital Signs Date Time Temp Pulse Resp B/P (MAP) Pulse Ox O2 Delivery O2 Flow Rate FiO2 09/02/18 08:52 118 135/95 (108) 09/02/18 08:30 Room Air 09/02/18 03:10 97.7 20 98 97.7 I & 0 Intake and Output 09/02/18 07:00 Intake Total 2400 ml Output Total 300 ml Balance 2100 ml Intake Oral 400 ml IV Total 2000 ml Output Urine Total 300 ml PHYSICAL EXAM Physical Exam GENERAL: NAD HEENT: Clear. NECK: SUPPLE LUNGS: Clear. ABDOMEN: Obese. Bowel sounds are present. Nontender. EXTREMITIES: Without edema. NEUROLOGIC: Nonfocal, localizing. DIAGNOSIS/ASSESSMENT Assessment & Plan ANTHONY - Prerenal/Dehydration Renal function Improved baseline unknown May have Some CKD due to HTN/DM Syncope -- history of atrial flutter Cardiac Eval going on HTN- On lasix, Aldactone and ARB Card Managing DM - as per primary Dw Family Will Sign off Recommend fu with our office as OP in 2-3 months COMMENT/RELEVANT DATA Meds Current Medications Medications (Trade) Dose Ordered Sig/Giorgio Start Time Stop Time Status Last Admin Dose Admin Acetaminophen (Tylenol) 650 mg PRN Q4HRS PRN 09/01/18 12:00 Al Hydroxide/Mg Hydroxide (Mylanta Plus Xs) 30 ml PRN DAILY PRN 09/01/18 12:00 Albuterol Sulfate (Ventolin Neb Soln) 2.5 mg PRN Q4HRS PRN 09/01/18 12:00 Atropine Sulfate (Isopto Atropine) 1 drop BID 09/01/18 21:00 09/02/18 08:45 1 DROP Brimonidine Tartrate (Alphagan) 1 drop Q8HRS 09/01/18 22:00 09/02/18 05:35 1 DROP Carvedilol (Coreg) 18.75 mg BIDWMEALS 09/01/18 17:00 09/02/18 08:43 18.75 MG Ceftriaxone Sodium (Rocephin) 1 gm Q24H 09/02/18 10:00 09/02/18 08:46 1 GM Clonidine HCl (Catapres) 0.1 mg PRN Q6HRS PRN 09/01/18 12:00 Dexamethasone (Maxidex) 1 drop QID 09/01/18 17:00 09/02/18 08:44 1 DROP Dextrose (Dextrose 50%-Water Syringe) 12.5 gm PRN Q15MIN PRN 09/01/18 14:15 Docusate Sodium (Colace) 100 mg PRN BID PRN 09/01/18 12:00 Furosemide (Lasix) 60 mg QMWF 09/02/18 16:00 Gabapentin (Neurontin) 600 mg QHS 09/01/18 21:00 09/01/18 20:14 600 MG Guaifenesin (Robitussin) 200 mg PRN Q4HRS PRN 09/01/18 12:00 Insulin Glargine (Lantus) 58 units QHS 09/01/18 21:00 09/01/18 21:16 58 UNITS Insulin Human Lispro (HumaLOG) 28 units TIDWMEALS 09/01/18 17:00 09/01/18 17:15 28 UNITS Losartan Potassium (Cozaar) 50 mg DAILY 09/02/18 09:00 09/02/18 08:43 50 MG Ondansetron HCl (Zofran) 4 mg PRN Q8HRS PRN 09/01/18 10:15 09/02/18 10:14 Sodium Monofluorophosphate (Fleet Adult) 133 ml PRN DAILY PRN 09/01/18 12:00 Sodium Polystyrene Sulfonate (Kayexalate) 30 gm 1X ONCE 09/01/18 12:00 09/01/18 12:01 DC 09/01/18 15:04 30 GM Sodium Chloride 1,000 ml @ 100 mls/hr Q10H 09/01/18 11:53 09/02/18 05:35 100 MLS/HR Spironolactone (Aldactone) 25 mg DAILY 09/02/18 09:00 09/02/18 08:43 25 MG Timolol Maleate (Timoptic 0.5% [facility]) 1 drop TID 09/01/18 21:00 09/02/18 08:52 1 DROP Lab Laboratory Tests Test 09/01/18 11:58 09/01/18 14:00 09/01/18 16:05 09/01/18 16:57 Glucose (Fingerstick) 177 mg/dL (70-99) 160 mg/dL (70-99) Troponin I Quantitative 0.018 ng/mL (0.000-0.055) < 0.017 ng/mL (0.000-0.055) Test 09/01/18 20:43 09/02/18 06:15 09/02/18 08:15 Glucose (Fingerstick) 152 mg/dL (70-99) 105 mg/dL (70-99) White Blood Count 7.8 x10^3/uL (4.0-11.0) Red Blood Count 4.90 x10^6/uL (4.30-5.70) Hemoglobin 14.0 g/dL (13.0-17.5) Hematocrit 43.3 % (39.0-53.0) Mean Corpuscular Volume 88 fL (79-100) Mean Corpuscular Hemoglobin 29 pg (25-35) Mean Corpuscular Hemoglobin Concent 32 g/dL (31-37) Red Cell Distribution Width 14.5 % (11.5-14.5) Platelet Count 216 x10^3/uL (140-400) Neutrophils (%) (Auto) 57 % (31-73) Lymphocytes (%) (Auto) 30 % (24-48) Monocytes (%) (Auto) 8 % (0-9) Eosinophils (%) (Auto) 4 % (0-3) Basophils (%) (Auto) 1 % (0-3) Neutrophils # (Auto) 4.4 x10^3uL (1.8-7.7) Lymphocytes # (Auto) 2.3 x10^3/uL (1.0-4.8) Monocytes # (Auto) 0.7 x10^3/uL (0.0-1.1) Eosinophils # (Auto) 0.3 x10^3/uL (0.0-0.7) Basophils # (Auto) 0.1 x10^3/uL (0.0-0.2) Prothrombin Time 41.8 SEC (11.7-14.0) Prothromb Time International Ratio 4.4 (0.8-1.1) Sodium Level 139 mmol/L (136-145) Potassium Level 4.5 mmol/L (3.5-5.1) Chloride Level 104 mmol/L (98-107) Carbon Dioxide Level 25 mmol/L (21-32) Anion Gap 10 (6-14) Blood Urea Nitrogen 17 mg/dL (8-26) Creatinine 1.1 mg/dL (0.7-1.3) Estimated GFR (Cockcroft-Gault) 67.6 BUN/Creatinine Ratio 15 (6-20) Glucose Level 110 mg/dL (70-99) Calcium Level 8.6 mg/dL (8.5-10.1) Total Bilirubin 0.8 mg/dL (0.2-1.0) Aspartate Amino Transf (AST/SGOT) 21 U/L (15-37) Alanine Aminotransferase (ALT/SGPT) 27 U/L (16-63) Alkaline Phosphatase 82 U/L (46-116) Total Protein 8.3 g/dL (6.4-8.2) Albumin 3.3 g/dL (3.4-5.0) Albumin/Globulin Ratio 0.7 (1.0-1.7) Triglycerides Level 37 mg/dL (0-150) Cholesterol Level 78 mg/dL (0-200) LDL Cholesterol, Calculated 40 mg/dL (0-100) VLDL Cholesterol, Calculated 7 mg/dL (0-40) Non-HDL Cholesterol Calculated 47 mg/dL (0-129) HDL Cholesterol 31 mg/dL (40-60) Cholesterol/HDL Ratio 2.5 Results All relevant outside records, renal labs, imaging studies, telemetry/EKG's were reviewed. JIGAR RODRIGUEZ MD Sep 02, 2018 09:49
--- NOTE | 2018-09-02 10:04 | PDOC ---
PROGRESS NOTES Assessment Problems Medical Problems: (1) Atrial flutter Status: Acute (2) Supratherapeutic INR Status: Acute (3) Syncope Status: Acute (4) Urinary tract infection Status: Acute Syncope. Seizure evaluation negative. Hypotension events. Tachycardia. AFib. CHF. DM. HTN. Renal insufficiency. Obesity. Cerebral atrophy. Plan Okay for discharge from neuro perspective Discussed with his and daughter Subjective No complaints, no further episodes of syncope Objective Vital Signs Date Time Temp Pulse Resp B/P (MAP) Pulse Ox O2 Delivery O2 Flow Rate FiO2 09/02/18 08:52 118 135/95 (108) 09/02/18 08:30 Room Air 09/02/18 03:10 97.7 20 98 97.7 Intake and Output 09/02/18 07:00 Intake Total 2400 ml Output Total 300 ml Balance 2100 ml Intake Oral 400 ml IV Total 2000 ml Output Urine Total 300 ml PHYSICAL EXAM Alert. Oriented to time, place and person. PERRL. EOMI. CN: no focal findings. Muscle tone: normal. Muscle strength: 5/5 DTR: 1+ Plantar reflex: flexor Gait: normal. Sensory exam: no abnormal findings. No cerebellar signs elicited. Review of Relevant I have reviewed the following items katja (where applicable) has been applied. Labs Laboratory Tests Test 09/01/18 08:40 09/01/18 08:47 09/01/18 09:00 09/01/18 09:15 White Blood Count 8.1 x10^3/uL (4.0-11.0) Red Blood Count 5.08 x10^6/uL (4.30-5.70) Hemoglobin 14.6 g/dL (13.0-17.5) Hematocrit 44.9 % (39.0-53.0) Mean Corpuscular Volume 89 fL (79-100) Mean Corpuscular Hemoglobin 29 pg (25-35) Mean Corpuscular Hemoglobin Concent 32 g/dL (31-37) Red Cell Distribution Width 14.1 % (11.5-14.5) Platelet Count 231 x10^3/uL (140-400) Neutrophils (%) (Auto) 67 % (31-73) Lymphocytes (%) (Auto) 23 % (24-48) Monocytes (%) (Auto) 7 % (0-9) Eosinophils (%) (Auto) 3 % (0-3) Basophils (%) (Auto) 0 % (0-3) Neutrophils # (Auto) 5.4 x10^3uL (1.8-7.7) Lymphocytes # (Auto) 1.9 x10^3/uL (1.0-4.8) Monocytes # (Auto) 0.5 x10^3/uL (0.0-1.1) Eosinophils # (Auto) 0.2 x10^3/uL (0.0-0.7) Basophils # (Auto) 0.0 x10^3/uL (0.0-0.2) Sodium Level 137 mmol/L (136-145) Potassium Level 5.5 mmol/L (3.5-5.1) Chloride Level 101 mmol/L (98-107) Carbon Dioxide Level 26 mmol/L (21-32) Anion Gap 10 (6-14) 14 mmol/L (6-14) Blood Urea Nitrogen 27 mg/dL (8-26) Creatinine 1.5 mg/dL (0.7-1.3) Estimated GFR (Cockcroft-Gault) 47.3 BUN/Creatinine Ratio 18 (6-20) Glucose Level 178 mg/dL (70-99) 165 mg/dL (70-99) Calcium Level 9.0 mg/dL (8.5-10.1) Magnesium Level 2.2 mg/dL (1.8-2.4) Total Bilirubin 0.8 mg/dL (0.2-1.0) Aspartate Amino Transf (AST/SGOT) 24 U/L (15-37) Alanine Aminotransferase (ALT/SGPT) 31 U/L (16-63) Alkaline Phosphatase 98 U/L (46-116) Troponin I Quantitative < 0.017 ng/mL (0.000-0.055) UJ-Tbn-G-Type Natriuretic Peptide 606 pg/mL (0-124) Total Protein 8.4 g/dL (6.4-8.2) Albumin 3.7 g/dL (3.4-5.0) Albumin/Globulin Ratio 0.8 (1.0-1.7) Bedside Hemoglobin 15.6 g/dL (14-18) Bedside Hematocrit 46 % (37-52) Bedside Sodium 137 mmol/L (135-145) Bedside Potassium 5.6 mmol/L (3.5-5.0) Bedside Chloride 104 mmol/L (98-110) Bedside Total CO2 25 mmol/L (23-32) Bedside Blood Urea Nitrogen 28 mg/dL (8-26) Bedside Creatinine 1.4 mg/dL (0.5-1.4) Bedside Ionized Calcium (Merari) 1.16 mmol/L (1.13-1.32) Prothrombin Time 41.8 SEC (11.7-14.0) Prothromb Time International Ratio 4.4 (0.8-1.1) Urine Collection Type Unknown Urine Color [place] Urine Clarity Cloudy Urine pH 5.0 Urine Specific [place] 1.025 Urine Protein 30 mg/dL (NEG-TRACE) Urine Glucose (UA) Negative mg/dL (NEG) Urine Ketones (Stick) Trace mg/dL (NEG) Urine Blood Negative (NEG) Urine Nitrite Positive (NEG) Urine Bilirubin Moderate (NEG) Urine Urobilinogen Dipstick 4.0 mg/dL (0.2 mg/dL) Urine Leukocyte Esterase Small (NEG) Urine RBC Occ /HPF (0-2) Urine WBC 1-4 /HPF (0-4) Urine Squamous Epithelial Cells Mod /LPF Urine Bacteria Moderate /HPF (0-FEW) Urine Hyaline Casts Moderate /HPF Urine Mucus Marked /LPF Test 09/01/18 11:58 09/01/18 14:00 09/01/18 16:05 09/01/18 16:57 Glucose (Fingerstick) 177 mg/dL (70-99) 160 mg/dL (70-99) Troponin I Quantitative 0.018 ng/mL (0.000-0.055) < 0.017 ng/mL (0.000-0.055) Test 09/01/18 20:43 09/02/18 06:15 09/02/18 08:15 Glucose (Fingerstick) 152 mg/dL (70-99) 105 mg/dL (70-99) White Blood Count 7.8 x10^3/uL (4.0-11.0) Red Blood Count 4.90 x10^6/uL (4.30-5.70) Hemoglobin 14.0 g/dL (13.0-17.5) Hematocrit 43.3 % (39.0-53.0) Mean Corpuscular Volume 88 fL (79-100) Mean Corpuscular Hemoglobin 29 pg (25-35) Mean Corpuscular Hemoglobin Concent 32 g/dL (31-37) Red Cell Distribution Width 14.5 % (11.5-14.5) Platelet Count 216 x10^3/uL (140-400) Neutrophils (%) (Auto) 57 % (31-73) Lymphocytes (%) (Auto) 30 % (24-48) Monocytes (%) (Auto) 8 % (0-9) Eosinophils (%) (Auto) 4 % (0-3) Basophils (%) (Auto) 1 % (0-3) Neutrophils # (Auto) 4.4 x10^3uL (1.8-7.7) Lymphocytes # (Auto) 2.3 x10^3/uL (1.0-4.8) Monocytes # (Auto) 0.7 x10^3/uL (0.0-1.1) Eosinophils # (Auto) 0.3 x10^3/uL (0.0-0.7) Basophils # (Auto) 0.1 x10^3/uL (0.0-0.2) Prothrombin Time 41.8 SEC (11.7-14.0) Prothromb Time International Ratio 4.4 (0.8-1.1) Sodium Level 139 mmol/L (136-145) Potassium Level 4.5 mmol/L (3.5-5.1) Chloride Level 104 mmol/L (98-107) Carbon Dioxide Level 25 mmol/L (21-32) Anion Gap 10 (6-14) Blood Urea Nitrogen 17 mg/dL (8-26) Creatinine 1.1 mg/dL (0.7-1.3) Estimated GFR (Cockcroft-Gault) 67.6 BUN/Creatinine Ratio 15 (6-20) Glucose Level 110 mg/dL (70-99) Calcium Level 8.6 mg/dL (8.5-10.1) Total Bilirubin 0.8 mg/dL (0.2-1.0) Aspartate Amino Transf (AST/SGOT) 21 U/L (15-37) Alanine Aminotransferase (ALT/SGPT) 27 U/L (16-63) Alkaline Phosphatase 82 U/L (46-116) Total Protein 8.3 g/dL (6.4-8.2) Albumin 3.3 g/dL (3.4-5.0) Albumin/Globulin Ratio 0.7 (1.0-1.7) Triglycerides Level 37 mg/dL (0-150) Cholesterol Level 78 mg/dL (0-200) LDL Cholesterol, Calculated 40 mg/dL (0-100) VLDL Cholesterol, Calculated 7 mg/dL (0-40) Non-HDL Cholesterol Calculated 47 mg/dL (0-129) HDL Cholesterol 31 mg/dL (40-60) Cholesterol/HDL Ratio 2.5 Laboratory Tests Test 09/01/18 11:58 09/01/18 14:00 09/01/18 16:05 09/01/18 16:57 Glucose (Fingerstick) 177 mg/dL (70-99) 160 mg/dL (70-99) Troponin I Quantitative 0.018 ng/mL (0.000-0.055) < 0.017 ng/mL (0.000-0.055) Test 09/01/18 20:43 09/02/18 06:15 09/02/18 08:15 Glucose (Fingerstick) 152 mg/dL (70-99) 105 mg/dL (70-99) White Blood Count 7.8 x10^3/uL (4.0-11.0) Red Blood Count 4.90 x10^6/uL (4.30-5.70) Hemoglobin 14.0 g/dL (13.0-17.5) Hematocrit 43.3 % (39.0-53.0) Mean Corpuscular Volume 88 fL (79-100) Mean Corpuscular Hemoglobin 29 pg (25-35) Mean Corpuscular Hemoglobin Concent 32 g/dL (31-37) Red Cell Distribution Width 14.5 % (11.5-14.5) Platelet Count 216 x10^3/uL (140-400) Neutrophils (%) (Auto) 57 % (31-73) Lymphocytes (%) (Auto) 30 % (24-48) Monocytes (%) (Auto) 8 % (0-9) Eosinophils (%) (Auto) 4 % (0-3) Basophils (%) (Auto) 1 % (0-3) Neutrophils # (Auto) 4.4 x10^3uL (1.8-7.7) Lymphocytes # (Auto) 2.3 x10^3/uL (1.0-4.8) Monocytes # (Auto) 0.7 x10^3/uL (0.0-1.1) Eosinophils # (Auto) 0.3 x10^3/uL (0.0-0.7) Basophils # (Auto) 0.1 x10^3/uL (0.0-0.2) Prothrombin Time 41.8 SEC (11.7-14.0) Prothromb Time International Ratio 4.4 (0.8-1.1) Sodium Level 139 mmol/L (136-145) Potassium Level 4.5 mmol/L (3.5-5.1) Chloride Level 104 mmol/L (98-107) Carbon Dioxide Level 25 mmol/L (21-32) Anion Gap 10 (6-14) Blood Urea Nitrogen 17 mg/dL (8-26) Creatinine 1.1 mg/dL (0.7-1.3) Estimated GFR (Cockcroft-Gault) 67.6 BUN/Creatinine Ratio 15 (6-20) Glucose Level 110 mg/dL (70-99) Calcium Level 8.6 mg/dL (8.5-10.1) Total Bilirubin 0.8 mg/dL (0.2-1.0) Aspartate Amino Transf (AST/SGOT) 21 U/L (15-37) Alanine Aminotransferase (ALT/SGPT) 27 U/L (16-63) Alkaline Phosphatase 82 U/L (46-116) Total Protein 8.3 g/dL (6.4-8.2) Albumin 3.3 g/dL (3.4-5.0) Albumin/Globulin Ratio 0.7 (1.0-1.7) Triglycerides Level 37 mg/dL (0-150) Cholesterol Level 78 mg/dL (0-200) LDL Cholesterol, Calculated 40 mg/dL (0-100) VLDL Cholesterol, Calculated 7 mg/dL (0-40) Non-HDL Cholesterol Calculated 47 mg/dL (0-129) HDL Cholesterol 31 mg/dL (40-60) Cholesterol/HDL Ratio 2.5 Medications Current Medications Ondansetron HCl (Zofran) 4 mg PRN Q8HRS PRN IV NAUSEA/VOMITING; Start 09/01/18 at 10:15; Stop 09/02/18 at 10:14 Sodium Chloride 1,000 ml @ 100 mls/hr Q10H IV Last administered on 09/01/18at 19 :55; Start 09/01/18 at 10:04; Stop 09/02/18 at 10:03 Acetaminophen (Tylenol) 650 mg PRN Q4HRS PRN PO FEVER; Start 09/01/18 at 10:15; Stop 09/02/18 at 10:14 Ceftriaxone Sodium (Rocephin) 1 gm 1X ONCE IVP Last administered on 09/01/18at 10:18; Start 09/01/18 at 10:15; Stop 09/01/18 at 10:16; Status DC Ceftriaxone Sodium (Rocephin) 1 gm Q24H IVP Last administered on 09/02/18at 08:46 ; Start 09/02/18 at 10:00 Sodium Polystyrene Sulfonate (Kayexalate) 30 gm 1X ONCE PO Last administered on 09/01/18at 15:04; Start 09/01/18 at 12:00; Stop 09/01/18 at 12:01; Status DC Sodium Chloride 1,000 ml @ 100 mls/hr Q10H IV Last administered on 09/02/18at 05 :35; Start 09/01/18 at 11:53 Acetaminophen (Tylenol) 650 mg PRN Q4HRS PRN PO TEMP OVER 100.4F OR MILD PAIN; Start 09/01/18 at 12:00 Acetaminophen (Tylenol) 650 mg PRN Q4HRS PRN GT TEMP OVER 100.4F OR MILD PAIN; Start 09/01/18 at 12:00 Al Hydroxide/Mg Hydroxide (Mylanta Plus Xs) 30 ml PRN DAILY PRN PO HEARTBURN / GAS; Start 09/01/18 at 12:00 Clonidine HCl (Catapres) 0.1 mg PRN Q6HRS PRN PO SBP>160 OR DBP>90; Start at 12:00 Sodium Monofluorophosphate (Fleet Adult) 133 ml PRN DAILY PRN WI CONSTIPATION; Start 09/01/18 at 12:00 Docusate Sodium (Colace) 100 mg PRN BID PRN PO CONSTIPATION; Start 09/01/18 at 12:00 Albuterol Sulfate (Ventolin Neb Soln) 2.5 mg PRN Q4HRS PRN NEB SHORTNESS OF BREATH; Start 09/01/18 at 12:00 Guaifenesin (Robitussin) 200 mg PRN Q4HRS PRN PO COUGH; Start 09/01/18 at 12:00 Carvedilol (Coreg) 18.75 mg BIDWMEALS PO Last administered on 09/02/18 08:43; Start 09/01/18 at 17:00 Furosemide (Lasix) 60 mg QMWF PO ; Start 09/02/18 at 16:00 Gabapentin (Neurontin) 300 mg BIDWMEALS PO Last administered on 09/02/18 08:42 ; Start 09/01/18 at 17:00 Insulin Glargine (Lantus) 58 units QHS SQ Last administered on 09/01/18 21:16; Start 09/01/18 at 21:00 Losartan Potassium (Cozaar) 50 mg DAILY PO Last administered on 09/02/18 08:43 ; Start 09/02/18 at 09:00 Atropine Sulfate (Isopto Atropine) 1 drop BID OD Last administered on 09/02/18 08:45; Start 09/01/18 at 21:00 Brimonidine Tartrate (Alphagan) 1 drop Q8HRS OD Last administered on 09/02/18 05:35; Start 09/01/18 at 22:00 Gabapentin (Neurontin) 600 mg QHS PO Last administered on 09/01/18 20:14; Start 09/01/18 at 21:00 Insulin Human Lispro (HumaLOG) 28 units TIDWMEALS SQ Last administered on 17:15; Start 09/01/18 at 17:00 Dexamethasone (Maxidex) 1 drop QID OD Last administered on 09/02/18 08:44; Start 09/01/18 at 17:00 Spironolactone (Aldactone) 25 mg DAILY PO Last administered on 09/02/18 08:43; Start 09/02/18 at 09:00 Timolol Maleate (Timoptic 0.5% [facility]) 1 drop TID OD Last administered on 08:52; Start 09/01/18 at 21:00 Dextrose (Dextrose 50%-Water Syringe) 12.5 gm PRN Q15MIN PRN IV SEE COMMENTS; Start 09/01/18 at 14:15 Active Scripts Active Reported Alphagan P (Brimonidine Tartrate) 5 Ml Drops 1 Drop RIGHTEYE TID Timoptic 0.5% (Timolol Maleate) 10 Ml Drops 1 Drop RIGHTEYE TID Prednisolone Acetate 5 Ml Drops.susp 1 Drop RIGHTEYE QID Atropine Sulfate 2 Ml Drops 1 Drop RIGHTEYE BID Lantus Solostar (Insulin Glargine,Hum.rec.anlog) 100 Unit/1 Ml Insuln.pen 58 Unit SQ QHS Novolog Flexpen (Insulin Aspart) 100 Unit/1 Ml Insuln.pen 28 Unit SQ TIDWMEALS Furosemide 20 Mg Tablet 60 Mg PO QMWF Spironolactone 25 Mg Tablet 1 Tab PO DAILY Carvedilol (Carvedilol) 12.5 Mg Tablet 18.75 Mg PO BIDWMEALS Losartan Potassium 50 Mg Tablet 50 Mg PO DAILY Warfarin Sodium 2.5 Mg Tablet 2.5 Mg PO QMTH Warfarin Sodium 5 Mg Tablet 5 Mg PO QTUTHSASU Gabapentin 600 Mg Tablet 600 Mg PO QHS Gabapentin (Gabapentin) 300 Mg Capsule 300 Mg PO BIDWMEALS Vitals/I & O Vital Sign - Last 24 Hours 09/01/18 09/01/18 09/01/18 09/01/18 11:30 11:30 11:32 11:35 Pulse 114 115 116 Resp 18 18 18 B/P (MAP) 116/78 (91) 99/65 (76) 86/63 (71) Pulse Ox 100 100 97 O2 Delivery Room Air Room Air Room Air Room Air 09/01/18 09/01/18 09/01/18 09/01/18 15:00 17:06 19:45 20:00 Temp 98.3 97.7 98.3 97.7 Pulse 115 117 84 Resp 18 18 B/P (MAP) 127/70 (89) 121/78 119/69 (86) Pulse Ox 97 98 O2 Delivery Room Air Room Air Room Air 09/01/18 09/02/18 09/02/18 09/02/18 23:10 03:10 08:30 08:43 Temp 97.7 97.7 97.7 97.7 Pulse 77 72 74 Resp 20 20 B/P (MAP) 115/75 (88) 111/71 (84) 140/57 Pulse Ox 98 98 O2 Delivery Room Air Room Air Room Air 09/02/18 09/02/18 09/02/18 09/02/18 08:43 08:51 08:51 08:52 Pulse 74 89 77 118 B/P (MAP) 140/57 137/67 (90) 140/57 (84) 135/95 (108) Intake and Output 09/01/18 09/01/18 09/02/18 15:00 23:00 07:00 Intake Total 1000 ml 1400 ml Output Total 300 ml Balance -300 ml 1000 ml 1400 ml Images EEG is normal. Carotids: Findings: The common, internal and external carotid arteries were examined by grayscale, color and spectral Doppler ultrasound. Mild intimal thickening with the soft plaque identified in the bilateral common carotid arteries. Flow in both vertebral arteries was antegrade and normal. The following are the velocities and ratios in the carotid arteries on both sides: RIGHT ICA PV: 56cm/sec RIGHT CCA PV: 69cm/sec RIGHT ICA ED: 21cm/sec RIGHT IC/CCPV: 0.9 RIGHT VERTEBRAL: antegrade flow RIGHT % STENOSIS: Less than 50 percent LEFT ICA PV: 51cm/sec LEFT CCA PV: 61cm/sec LEFT ICA ED: 23cm/sec LEFT IC/CCPV: 0.9 LEFT VERTEBRAL: antegrade flow LEFT % STENOSIS: Less than 50 percent <50% ICA Stenosis: PSV < 125cm/s (EDV < 40cm/s; SVR < 2.0) 50-69% ICA Stenosis: PSV < 125-229cm/s (EDV 40-99cm/s; SVR 2.0-3.9) >70% ICA Stenosis: PSV > 230cm/s (EDV >100cm/s; SVR >4.0) Impression: No evidence of hemodynamic significant stenosis.. SUNNI QUEZADA MD Sep 02, 2018 10:04
--- NOTE | 2018-09-02 10:53 | CARD ---
MR#: [id number] Date of Study: 09/02/2018 Ordering Physician: DAWIT MULLINS, Referring Physician: DAWIT MULLINS Tech: Coco Ellis RDCS APPROVED REPORT EXAM: Two-dimensional and M-mode echocardiogram with Doppler and color Doppler. Other Information Quality : Fair INDICATION Syncope RISK FACTORS Obesity 2D DIMENSIONS RVDd3.0 (2.9-3.5cm)Left Atrium(2D)4.7 (1.6-4.0cm) IVSd1.2 (0.7-1.1cm)Aortic Root(2D)3.4 (2.0-3.7cm) LVDd5.7 (3.9-5.9cm)LVOT Diameter2.2 (1.8-2.4cm) PWd0.9 (0.7-1.1cm)LVDs4.9 (2.5-4.0cm) FS (%) 14.3 %SV48.5 ml LVEF(%)30.0 (>50%) Aortic Valve AoV Peak Roger.95.3cm/sAoV VTI16.8cm AO Peak GR.3.6mmHgLVOT Peak Roger.72.4cm/s LVOT VTI 15.39cmAO Mean GR.2mmHg WILBER (VMAX)3.05bf6TMJ (VTI)3.62cm2 Mitral Valve MV E Ttqqxnov969.4cm/sMV DECEL [id number] MV [id number] (PHT)2.62cm2 TDI E/Lateral E'30.7E/Medial E'25.5 Tricuspid Valve TR P. Kuppgwgq026sx/sRAP [id number] TR Peak Gr.[id number] Pulmonary Vein S1 Kjnmdiki61.4cm/sD2 Uqijiemy87.5cm/s LEFT VENTRICLE The left ventricle is normal size. There is mild asymmetric septal hypertrophy. Left ventricle systol ic function is severely impaired. The Ejection Fraction is 25-30%. There is global hypokinesis of the left ventricle. Tissue Doppler imaging reveals moderate left ventricular diastolic dysfunction. RIGHT VENTRICLE The right ventricle is mildly dilated. RV Systolic function is mildly reduced. ATRIA The left atrium is mildly dilated. The right atrium is mildly dilated. The interatrial septum is inta ct with no evidence for an atrial septal defect or patent foramen ovale as noted on 2-D or Doppler im aging. AORTIC VALVE The aortic valve is calcified but opens well. Doppler and Color Flow revealed no significant aortic r egurgitation. There is no significant aortic valvular stenosis. MITRAL VALVE The mitral valve is calcified with restricted posterior leaflet. There is no evidence of mitral valve prolapse. There is no mitral valve stenosis. Doppler and Color-flow revealed mild mitral regurgitati on. TRICUSPID VALVE The tricuspid valve is normal in structure and function. Doppler and Color Flow revealed mild tricusp id regurgitation. There is moderate pulmonary hypertension. The PA pressure was estimated at 47 mmHg. There is no tricuspid valve stenosis. PULMONIC VALVE The pulmonic valve is not well visualized. Doppler and Color Flow revealed no pulmonic valvular regur gitation. There is no pulmonic valvular stenosis. GREAT VESSELS The aortic root is normal in size. The ascending aorta is normal in size. The IVC is normal in size a nd collapses >50% with inspiration. PERICARDIAL EFFUSION There is no evidence of significant pericardial effusion. Critical Notification Critical Value: No <Conclusion> Left ventricle systolic function is severely impaired. The Ejection Fraction is 25-30%. There is global hypokinesis of the left ventricle. Doppler and Color Flow revealed mild tricuspid regurgitation. There is moderate pulmonary hypertensio n. The PA pressure was estimated at 47 mmHg. Signed by : Zhang Magaña, Electronically Approved : 09/02/2018 10:52:11
--- NOTE | 2018-09-02 11:29 | NUR ---
SS following for discharge planning. SS reviewed pt chart. Pt is from home with spouse and is currently on room air. Pt is a self pay pt. No discharge needs noted at this time. SS will continue to follow for discharge planning.
--- NOTE | 2018-09-02 12:41 | PDOC ---
PROGRESS NOTES Chief Complaint Chief Complaint Syncopal episode Afib- taking coumadin elevated Cr Hyperkalemia Supratherapeutic INR UTI HLD HTN History of Present Illness History of Present Illness Pt was seen and examined outside cardiac echo exam room. Discussed with pt family. Pt denies further complaints. Resting comfortably in wheelchair awaiting transportation back to inpatient room. Vitals Vitals Vital Signs Date Time Temp Pulse Resp B/P (MAP) Pulse Ox O2 Delivery O2 Flow Rate FiO2 09/02/18 11:08 97.7 78 20 132/71 (91) 98 Room Air 97.7 Physical Exam General: Alert, Cooperative, No acute distress Heart: Regular rate, No murmurs Lungs: Clear Abdomen: Normal bowel sounds, Soft Extremities: No clubbing, No cyanosis Skin: No rashes, No significant lesion Labs LABS Laboratory Tests Test 09/01/18 14:00 09/01/18 16:05 09/01/18 16:57 09/01/18 20:43 Troponin I Quantitative 0.018 ng/mL (0.000-0.055) < 0.017 ng/mL (0.000-0.055) Glucose (Fingerstick) 160 mg/dL (70-99) 152 mg/dL (70-99) Test 09/02/18 06:15 09/02/18 08:15 09/02/18 11:30 White Blood Count 7.8 x10^3/uL (4.0-11.0) Red Blood Count 4.90 x10^6/uL (4.30-5.70) Hemoglobin 14.0 g/dL (13.0-17.5) Hematocrit 43.3 % (39.0-53.0) Mean Corpuscular Volume 88 fL (79-100) Mean Corpuscular Hemoglobin 29 pg (25-35) Mean Corpuscular Hemoglobin Concent 32 g/dL (31-37) Red Cell Distribution Width 14.5 % (11.5-14.5) Platelet Count 216 x10^3/uL (140-400) Neutrophils (%) (Auto) 57 % (31-73) Lymphocytes (%) (Auto) 30 % (24-48) Monocytes (%) (Auto) 8 % (0-9) Eosinophils (%) (Auto) 4 % (0-3) Basophils (%) (Auto) 1 % (0-3) Neutrophils # (Auto) 4.4 x10^3uL (1.8-7.7) Lymphocytes # (Auto) 2.3 x10^3/uL (1.0-4.8) Monocytes # (Auto) 0.7 x10^3/uL (0.0-1.1) Eosinophils # (Auto) 0.3 x10^3/uL (0.0-0.7) Basophils # (Auto) 0.1 x10^3/uL (0.0-0.2) Prothrombin Time 41.8 SEC (11.7-14.0) Prothromb Time International Ratio 4.4 (0.8-1.1) Sodium Level 139 mmol/L (136-145) Potassium Level 4.5 mmol/L (3.5-5.1) Chloride Level 104 mmol/L (98-107) Carbon Dioxide Level 25 mmol/L (21-32) Anion Gap 10 (6-14) Blood Urea Nitrogen 17 mg/dL (8-26) Creatinine 1.1 mg/dL (0.7-1.3) Estimated GFR (Cockcroft-Gault) 67.6 BUN/Creatinine Ratio 15 (6-20) Glucose Level 110 mg/dL (70-99) Calcium Level 8.6 mg/dL (8.5-10.1) Total Bilirubin 0.8 mg/dL (0.2-1.0) Aspartate Amino Transf (AST/SGOT) 21 U/L (15-37) Alanine Aminotransferase (ALT/SGPT) 27 U/L (16-63) Alkaline Phosphatase 82 U/L (46-116) Total Protein 8.3 g/dL (6.4-8.2) Albumin 3.3 g/dL (3.4-5.0) Albumin/Globulin Ratio 0.7 (1.0-1.7) Triglycerides Level 37 mg/dL (0-150) Cholesterol Level 78 mg/dL (0-200) LDL Cholesterol, Calculated 40 mg/dL (0-100) VLDL Cholesterol, Calculated 7 mg/dL (0-40) Non-HDL Cholesterol Calculated 47 mg/dL (0-129) HDL Cholesterol 31 mg/dL (40-60) Cholesterol/HDL Ratio 2.5 Glucose (Fingerstick) 105 mg/dL (70-99) 173 mg/dL (70-99) Review of Systems Review of Systems Pt denies CP, SOB, HENNESSY, dizziness, weakness, N/V/D Assessment and Plan Assessmemt and Plan Problems Medical Problems: (1) Atrial flutter Status: Acute (2) Supratherapeutic INR Status: Acute (3) Syncope Status: Acute (4) Urinary tract infection Status: Acute Assessment: Syncopal episode Afib- taking coumadin elevated Cr Hyperkalemia Supratherapeutic INR UTI HLD HTN Plan: Cardiac monitoring serial cardiac enzymes serial ECGs Echo results pending appreciate subspecialty recs- cards, neuro, nephro routine labs PT/OT D/C likely today Comment Review of Relevant I have reviewed the following items katja (where applicable) has been applied. Labs Laboratory Tests Test 09/01/18 08:40 09/01/18 08:47 09/01/18 09:00 09/01/18 09:15 White Blood Count 8.1 x10^3/uL (4.0-11.0) Red Blood Count 5.08 x10^6/uL (4.30-5.70) Hemoglobin 14.6 g/dL (13.0-17.5) Hematocrit 44.9 % (39.0-53.0) Mean Corpuscular Volume 89 fL (79-100) Mean Corpuscular Hemoglobin 29 pg (25-35) Mean Corpuscular Hemoglobin Concent 32 g/dL (31-37) Red Cell Distribution Width 14.1 % (11.5-14.5) Platelet Count 231 x10^3/uL (140-400) Neutrophils (%) (Auto) 67 % (31-73) Lymphocytes (%) (Auto) 23 % (24-48) Monocytes (%) (Auto) 7 % (0-9) Eosinophils (%) (Auto) 3 % (0-3) Basophils (%) (Auto) 0 % (0-3) Neutrophils # (Auto) 5.4 x10^3uL (1.8-7.7) Lymphocytes # (Auto) 1.9 x10^3/uL (1.0-4.8) Monocytes # (Auto) 0.5 x10^3/uL (0.0-1.1) Eosinophils # (Auto) 0.2 x10^3/uL (0.0-0.7) Basophils # (Auto) 0.0 x10^3/uL (0.0-0.2) Sodium Level 137 mmol/L (136-145) Potassium Level 5.5 mmol/L (3.5-5.1) Chloride Level 101 mmol/L (98-107) Carbon Dioxide Level 26 mmol/L (21-32) Anion Gap 10 (6-14) 14 mmol/L (6-14) Blood Urea Nitrogen 27 mg/dL (8-26) Creatinine 1.5 mg/dL (0.7-1.3) Estimated GFR (Cockcroft-Gault) 47.3 BUN/Creatinine Ratio 18 (6-20) Glucose Level 178 mg/dL (70-99) 165 mg/dL (70-99) Calcium Level 9.0 mg/dL (8.5-10.1) Magnesium Level 2.2 mg/dL (1.8-2.4) Total Bilirubin 0.8 mg/dL (0.2-1.0) Aspartate Amino Transf (AST/SGOT) 24 U/L (15-37) Alanine Aminotransferase (ALT/SGPT) 31 U/L (16-63) Alkaline Phosphatase 98 U/L (46-116) Troponin I Quantitative < 0.017 ng/mL (0.000-0.055) RM-[id number]-[id number]-Type Natriuretic Peptide 606 pg/mL (0-124) Total Protein 8.4 g/dL (6.4-8.2) Albumin 3.7 g/dL (3.4-5.0) Albumin/Globulin Ratio 0.8 (1.0-1.7) Bedside Hemoglobin 15.6 g/dL (14-18) Bedside Hematocrit 46 % (37-52) Bedside Sodium 137 mmol/L (135-145) Bedside Potassium 5.6 mmol/L (3.5-5.0) Bedside Chloride 104 mmol/L (98-110) Bedside Total CO2 25 mmol/L (23-32) Bedside Blood Urea Nitrogen 28 mg/dL (8-26) Bedside Creatinine 1.4 mg/dL (0.5-1.4) Bedside Ionized Calcium (Merari) 1.16 mmol/L (1.13-1.32) Prothrombin Time 41.8 SEC (11.7-14.0) Prothromb Time International Ratio 4.4 (0.8-1.1) Urine Collection Type Unknown Urine Color Louis[place] Urine Clarity Cloudy Urine pH 5.0 Urine Specific [place] 1.025 Urine Protein 30 mg/dL (NEG-TRACE) Urine Glucose (UA) Negative mg/dL (NEG) Urine Ketones (Stick) Trace mg/dL (NEG) Urine Blood Negative (NEG) Urine Nitrite Positive (NEG) Urine Bilirubin Moderate (NEG) Urine Urobilinogen Dipstick 4.0 mg/dL (0.2 mg/dL) Urine Leukocyte Esterase Small (NEG) Urine RBC Occ /HPF (0-2) Urine WBC 1-4 /HPF (0-4) Urine Squamous Epithelial Cells Mod /LPF Urine Bacteria Moderate /HPF (0-FEW) Urine Hyaline Casts Moderate /HPF Urine Mucus Marked /LPF Test 09/01/18 11:58 09/01/18 14:00 09/01/18 16:05 09/01/18 16:57 Glucose (Fingerstick) 177 mg/dL (70-99) 160 mg/dL (70-99) Troponin I Quantitative 0.018 ng/mL (0.000-0.055) < 0.017 ng/mL (0.000-0.055) Test 09/01/18 20:43 09/02/18 06:15 09/02/18 08:15 09/02/18 11:30 Glucose (Fingerstick) 152 mg/dL (70-99) 105 mg/dL (70-99) 173 mg/dL (70-99) White Blood Count 7.8 x10^3/uL (4.0-11.0) Red Blood Count 4.90 x10^6/uL (4.30-5.70) Hemoglobin 14.0 g/dL (13.0-17.5) Hematocrit 43.3 % (39.0-53.0) Mean Corpuscular Volume 88 fL (79-100) Mean Corpuscular Hemoglobin 29 pg (25-35) Mean Corpuscular Hemoglobin Concent 32 g/dL (31-37) Red Cell Distribution Width 14.5 % (11.5-14.5) Platelet Count 216 x10^3/uL (140-400) Neutrophils (%) (Auto) 57 % (31-73) Lymphocytes (%) (Auto) 30 % (24-48) Monocytes (%) (Auto) 8 % (0-9) Eosinophils (%) (Auto) 4 % (0-3) Basophils (%) (Auto) 1 % (0-3) Neutrophils # (Auto) 4.4 x10^3uL (1.8-7.7) Lymphocytes # (Auto) 2.3 x10^3/uL (1.0-4.8) Monocytes # (Auto) 0.7 x10^3/uL (0.0-1.1) Eosinophils # (Auto) 0.3 x10^3/uL (0.0-0.7) Basophils # (Auto) 0.1 x10^3/uL (0.0-0.2) Prothrombin Time 41.8 SEC (11.7-14.0) Prothromb Time International Ratio 4.4 (0.8-1.1) Sodium Level 139 mmol/L (136-145) Potassium Level 4.5 mmol/L (3.5-5.1) Chloride Level 104 mmol/L (98-107) Carbon Dioxide Level 25 mmol/L (21-32) Anion Gap 10 (6-14) Blood Urea Nitrogen 17 mg/dL (8-26) Creatinine 1.1 mg/dL (0.7-1.3) Estimated GFR (Cockcroft-Gault) 67.6 BUN/Creatinine Ratio 15 (6-20) Glucose Level 110 mg/dL (70-99) Calcium Level 8.6 mg/dL (8.5-10.1) Total Bilirubin 0.8 mg/dL (0.2-1.0) Aspartate Amino Transf (AST/SGOT) 21 U/L (15-37) Alanine Aminotransferase (ALT/SGPT) 27 U/L (16-63) Alkaline Phosphatase 82 U/L (46-116) Total Protein 8.3 g/dL (6.4-8.2) Albumin 3.3 g/dL (3.4-5.0) Albumin/Globulin Ratio 0.7 (1.0-1.7) Triglycerides Level 37 mg/dL (0-150) Cholesterol Level 78 mg/dL (0-200) LDL Cholesterol, Calculated 40 mg/dL (0-100) VLDL Cholesterol, Calculated 7 mg/dL (0-40) Non-HDL Cholesterol Calculated 47 mg/dL (0-129) HDL Cholesterol 31 mg/dL (40-60) Cholesterol/HDL Ratio 2.5 Laboratory Tests Test 09/01/18 14:00 09/01/18 16:05 09/01/18 16:57 09/01/18 20:43 Troponin I Quantitative 0.018 ng/mL (0.000-0.055) < 0.017 ng/mL (0.000-0.055) Glucose (Fingerstick) 160 mg/dL (70-99) 152 mg/dL (70-99) Test 09/02/18 06:15 09/02/18 08:15 09/02/18 11:30 White Blood Count 7.8 x10^3/uL (4.0-11.0) Red Blood Count 4.90 x10^6/uL (4.30-5.70) Hemoglobin 14.0 g/dL (13.0-17.5) Hematocrit 43.3 % (39.0-53.0) Mean Corpuscular Volume 88 fL (79-100) Mean Corpuscular Hemoglobin 29 pg (25-35) Mean Corpuscular Hemoglobin Concent 32 g/dL (31-37) Red Cell Distribution Width 14.5 % (11.5-14.5) Platelet Count 216 x10^3/uL (140-400) Neutrophils (%) (Auto) 57 % (31-73) Lymphocytes (%) (Auto) 30 % (24-48) Monocytes (%) (Auto) 8 % (0-9) Eosinophils (%) (Auto) 4 % (0-3) Basophils (%) (Auto) 1 % (0-3) Neutrophils # (Auto) 4.4 x10^3uL (1.8-7.7) Lymphocytes # (Auto) 2.3 x10^3/uL (1.0-4.8) Monocytes # (Auto) 0.7 x10^3/uL (0.0-1.1) Eosinophils # (Auto) 0.3 x10^3/uL (0.0-0.7) Basophils # (Auto) 0.1 x10^3/uL (0.0-0.2) Prothrombin Time 41.8 SEC (11.7-14.0) Prothromb Time International Ratio 4.4 (0.8-1.1) Sodium Level 139 mmol/L (136-145) Potassium Level 4.5 mmol/L (3.5-5.1) Chloride Level 104 mmol/L (98-107) Carbon Dioxide Level 25 mmol/L (21-32) Anion Gap 10 (6-14) Blood Urea Nitrogen 17 mg/dL (8-26) Creatinine 1.1 mg/dL (0.7-1.3) Estimated GFR (Cockcroft-Gault) 67.6 BUN/Creatinine Ratio 15 (6-20) Glucose Level 110 mg/dL (70-99) Calcium Level 8.6 mg/dL (8.5-10.1) Total Bilirubin 0.8 mg/dL (0.2-1.0) Aspartate Amino Transf (AST/SGOT) 21 U/L (15-37) Alanine Aminotransferase (ALT/SGPT) 27 U/L (16-63) Alkaline Phosphatase 82 U/L (46-116) Total Protein 8.3 g/dL (6.4-8.2) Albumin 3.3 g/dL (3.4-5.0) Albumin/Globulin Ratio 0.7 (1.0-1.7) Triglycerides Level 37 mg/dL (0-150) Cholesterol Level 78 mg/dL (0-200) LDL Cholesterol, Calculated 40 mg/dL (0-100) VLDL Cholesterol, Calculated 7 mg/dL (0-40) Non-HDL Cholesterol Calculated 47 mg/dL (0-129) HDL Cholesterol 31 mg/dL (40-60) Cholesterol/HDL Ratio 2.5 Glucose (Fingerstick) 105 mg/dL (70-99) 173 mg/dL (70-99) Medications Current Medications Ondansetron HCl (Zofran) 4 mg PRN Q8HRS PRN IV NAUSEA/VOMITING; Start 09/01/18 at 10:15; Stop 09/02/18 at 10:14; Status DC Sodium Chloride 1,000 ml @ 100 mls/hr Q10H IV Last administered on 09/01/18at 19 :55; Start 09/01/18 at 10:04; Stop 09/02/18 at 10:03; Status DC Acetaminophen (Tylenol) 650 mg PRN Q4HRS PRN PO FEVER; Start 09/01/18 at 10:15; Stop 09/02/18 at 10:14; Status DC Ceftriaxone Sodium (Rocephin) 1 gm 1X ONCE IVP Last administered on 09/01/18at 10:18; Start 09/01/18 at 10:15; Stop 09/01/18 at 10:16; Status DC Ceftriaxone Sodium (Rocephin) 1 gm Q24H IVP Last administered on 09/02/18at 08:46 ; Start 09/02/18 at 10:00 Sodium Polystyrene Sulfonate (Kayexalate) 30 gm 1X ONCE PO Last administered on 09/01/18at 15:04; Start 09/01/18 at 12:00; Stop 09/01/18 at 12:01; Status DC Sodium Chloride 1,000 ml @ 100 mls/hr Q10H IV Last administered on 09/02/18at 05 :35; Start 09/01/18 at 11:53 Acetaminophen (Tylenol) 650 mg PRN Q4HRS PRN PO TEMP OVER 100.4F OR MILD PAIN; Start 09/01/18 at 12:00 Acetaminophen (Tylenol) 650 mg PRN Q4HRS PRN GT TEMP OVER 100.4F OR MILD PAIN; Start 09/01/18 at 12:00 Al Hydroxide/Mg Hydroxide (Mylanta Plus Xs) 30 ml PRN DAILY PRN PO HEARTBURN / GAS; Start 09/01/18 at 12:00 Clonidine HCl (Catapres) 0.1 mg PRN Q6HRS PRN PO SBP>160 OR DBP>90; Start at 12:00 Sodium Monofluorophosphate (Fleet Adult) 133 ml PRN DAILY PRN AR CONSTIPATION; Start 09/01/18 at 12:00 Docusate Sodium (Colace) 100 mg PRN BID PRN PO CONSTIPATION; Start 09/01/18 at 12:00 Albuterol Sulfate (Ventolin Neb Soln) 2.5 mg PRN Q4HRS PRN NEB SHORTNESS OF BREATH; Start 09/01/18 at 12:00 Guaifenesin (Robitussin) 200 mg PRN Q4HRS PRN PO COUGH; Start 09/01/18 at 12:00 Carvedilol (Coreg) 18.75 mg BIDWMEALS PO Last administered on 09/02/18at 08:43; Start 09/01/18 at 17:00 Furosemide (Lasix) 60 mg QMWF PO ; Start 09/02/18 at 16:00 Gabapentin (Neurontin) 300 mg BIDWMEALS PO Last administered on 09/02/18 08:42 ; Start 09/01/18 at 17:00 Insulin Glargine (Lantus) 58 units QHS SQ Last administered on 09/01/18 21:16; Start 09/01/18 at 21:00 Losartan Potassium (Cozaar) 50 mg DAILY PO Last administered on 09/02/18 08:43 ; Start 09/02/18 at 09:00 Atropine Sulfate (Isopto Atropine) 1 drop BID OD Last administered on 09/02/18 08:45; Start 09/01/18 at 21:00 Brimonidine Tartrate (Alphagan) 1 drop Q8HRS OD Last administered on 09/02/18 05:35; Start 09/01/18 at 22:00 Gabapentin (Neurontin) 600 mg QHS PO Last administered on 09/01/18 20:14; Start 09/01/18 at 21:00 Insulin Human Lispro (HumaLOG) 28 units TIDWMEALS SQ Last administered on 17:15; Start 09/01/18 at 17:00 Dexamethasone (Maxidex) 1 drop QID OD Last administered on 09/02/18 08:44; Start 09/01/18 at 17:00 Spironolactone (Aldactone) 25 mg DAILY PO Last administered on 09/02/18 08:43; Start 09/02/18 at 09:00 Timolol Maleate (Timoptic 0.5% [facility]) 1 drop TID OD Last administered on 08:52; Start 09/01/18 at 21:00 Dextrose (Dextrose 50%-Water Syringe) 12.5 gm PRN Q15MIN PRN IV SEE COMMENTS; Start 09/01/18 at 14:15 Active Scripts Active Reported Alphagan P (Brimonidine Tartrate) 5 Ml Drops 1 Drop RIGHTEYE TID Timoptic 0.5% (Timolol Maleate) 10 Ml Drops 1 Drop RIGHTEYE TID Prednisolone Acetate 5 Ml Drops.susp 1 Drop RIGHTEYE QID Atropine Sulfate 2 Ml Drops 1 Drop RIGHTEYE BID Lantus Solostar (Insulin Glargine,Hum.rec.anlog) 100 Unit/1 Ml Insuln.pen 58 Unit SQ QHS Novolog Flexpen (Insulin Aspart) 100 Unit/1 Ml Insuln.pen 28 Unit SQ TIDWMEALS Furosemide 20 Mg Tablet 60 Mg PO QMWF Spironolactone 25 Mg Tablet 1 Tab PO DAILY Carvedilol (Carvedilol) 12.5 Mg Tablet 18.75 Mg PO BIDWMEALS Losartan Potassium 50 Mg Tablet 50 Mg PO DAILY Warfarin Sodium 2.5 Mg Tablet 2.5 Mg PO QMTH Warfarin Sodium 5 Mg Tablet 5 Mg PO QTUTHSASU Gabapentin 600 Mg Tablet 600 Mg PO QHS Gabapentin (Gabapentin) 300 Mg Capsule 300 Mg PO BIDWMEALS Vitals/I & O Vital Sign - Last 24 Hours 09/01/18 09/01/18 09/01/18 09/01/18 15:00 17:06 19:45 20:00 Temp 98.3 97.7 98.3 97.7 Pulse 115 117 84 Resp 18 18 B/P (MAP) 127/70 (89) 121/78 119/69 (86) Pulse Ox 97 98 O2 Delivery Room Air Room Air Room Air 09/01/18 09/02/18 09/02/18 09/02/18 23:10 03:10 08:30 08:43 Temp 97.7 97.7 97.7 97.7 Pulse 77 72 74 Resp 20 20 B/P (MAP) 115/75 (88) 111/71 (84) 140/57 Pulse Ox 98 98 O2 Delivery Room Air Room Air Room Air 09/02/18 09/02/18 09/02/18 09/02/18 08:43 08:51 08:51 08:52 Pulse 74 89 77 118 B/P (MAP) 140/57 137/67 (90) 140/57 (84) 135/95 (108) 09/02/18 11:08 Temp 97.7 97.7 Pulse 78 Resp 20 B/P (MAP) 132/71 (91) Pulse Ox 98 O2 Delivery Room Air Intake and Output 09/01/18 09/01/18 09/02/18 14:59 22:59 06:59 Intake Total 1000 ml 1400 ml Output Total 300 ml Balance -300 ml 1000 ml 1400 ml CASTLE,NIAL K III DO Sep 02, 2018 12:41
--- NOTE | 2018-09-02 13:36 | PDOC2 ---
KRISTINE [employer]ES [employer] 09/02/18 1335: CARDIAC CONSULT DATE OF CONSULT Date of Consult DATE: 09/02/18 TIME: 13:31 REASON FOR CONSULT Reason for Consult: Syncope Atrial flutter REFERRING PHYSICIAN Referring Physician: Dr. Aquino SOURCE Source: Chart review, Patient HISTORY OF PRESENT ILLNESS HISTORY OF PRESENT ILLNESS This is a 62 yo male who presented secondary to syncopal episode. Patient had eye surgery about a month ago. Has not felt well since. Has been weak, had severe headaches, and poor appetite. On the day of arrival, patient was headed to the bathroom and began feeling dizzy. Subsequently passed out. Family was at bedside and lowered him to the ground. Daughter report he had LOC for about 1 minute. EMS was called. Patient denies any chest pain, palpitations, SOA, diaphoresis, or nausea/ vomiting. Has a history of CHF and A-flutter on warfarin. Follows with senior accountant cpa, Dr. Azul at . Reports he was scheduled to have cardioversion, but atrial clot was noted to he was put on warfarin and scheduled for outpatient CV when clot resolved. PAST MEDICAL HISTORY Cardiovascular: AFIB (a-flutter), CHF, HTN Pulmonary: No pertinent hx CENTRAL NERVOUS SYSTEM: Other (no pertinent hx) GI: No pertinent hx Heme/Onc: Other (DVT) Hepatobiliary: No pertinent hx Psych: No pertinent hx Musculoskeletal: low back pain Rheumatologic: No pertinent hx Infectious disease: No pertinent hx ENT: No pertinent hx Renal/: No pertinent hx Endocrine: Diabetes PAST SURGICAL HISTORY Past Surgical History: Other (right eye surgery) FAMILY HISTORY Family History: Stroke SOCIAL HISTORY Smoke: No ALCOHOL: none Drugs: None Lives: with Family CURRENT MEDICATIONS CURRENT MEDICATIONS Current Medications Medications (Trade) Dose Ordered Sig/Giorgio Route PRN Reason Start Time Stop Time Status Last Admin Dose Admin Ceftriaxone Sodium (Rocephin) 1 gm Q24H IVP 09/02/18 10:00 09/02/18 08:46 Carvedilol (Coreg) 18.75 mg BIDWMEALS PO 09/01/18 17:00 09/02/18 08:43 Gabapentin (Neurontin) 300 mg BIDWMEALS PO 09/01/18 17:00 09/02/18 08:42 Insulin Glargine (Lantus) 58 units QHS SQ 09/01/18 21:00 09/01/18 21:16 Losartan Potassium (Cozaar) 50 mg DAILY PO 09/02/18 09:00 09/02/18 08:43 Atropine Sulfate (Isopto Atropine) 1 drop BID OD 09/01/18 21:00 09/02/18 08:45 Brimonidine Tartrate (Alphagan) 1 drop Q8HRS OD 09/01/18 22:00 09/02/18 13:22 Gabapentin (Neurontin) 600 mg QHS PO 09/01/18 21:00 09/01/18 20:14 Insulin Human Lispro (HumaLOG) 28 units TIDWMEALS SQ 09/01/18 17:00 09/02/18 13:27 Dexamethasone (Maxidex) 1 drop QID OD 09/01/18 17:00 09/02/18 13:21 Spironolactone (Aldactone) 25 mg DAILY PO 09/02/18 09:00 09/02/18 08:43 Timolol Maleate (Timoptic 0.5% Ophth) 1 drop TID OD 09/01/18 21:00 09/02/18 13:22 ALLERGIES ALLERGIES: Coded Allergies: No Known Drug Allergies (Unverified , 01/11/18) ROS Review of System 14 point ROS conducted with pertinent positives noted above in HPI. PHYSICAL EXAM General: Alert, Oriented X3, Cooperative, No acute distress HEENT: Atraumatic, Mucous membr. moist/pink Lungs: Clear to auscultation, Normal air movement Heart: Other (tele Aflutter) Abdomen: Soft, No tenderness Extremities: No edema, Normal pulses Skin: No significant lesion Neuro: Normal speech, Sensation intact Psych/Mental Status: Mental status NL, Mood NL MUSCULOSKELETAL: Osteoarthritic changes both hands VITALS VITALS Vital Signs Date Time Temp Pulse Resp B/P (MAP) Pulse Ox O2 Delivery O2 Flow Rate FiO2 09/02/18 11:08 97.7 78 20 132/71 (91) 98 Room Air 97.7 LABS Lab: Laboratory Tests Test 09/01/18 14:00 09/01/18 16:05 09/01/18 16:57 09/01/18 20:43 Troponin I Quantitative 0.018 ng/mL (0.000-0.055) < 0.017 ng/mL (0.000-0.055) Glucose (Fingerstick) 160 mg/dL (70-99) 152 mg/dL (70-99) Test 09/02/18 06:15 09/02/18 08:15 09/02/18 11:30 White Blood Count 7.8 x10^3/uL (4.0-11.0) Red Blood Count 4.90 x10^6/uL (4.30-5.70) Hemoglobin 14.0 g/dL (13.0-17.5) Hematocrit 43.3 % (39.0-53.0) Mean Corpuscular Volume 88 fL (79-100) Mean Corpuscular Hemoglobin 29 pg (25-35) Mean Corpuscular Hemoglobin Concent 32 g/dL (31-37) Red Cell Distribution Width 14.5 % (11.5-14.5) Platelet Count 216 x10^3/uL (140-400) Neutrophils (%) (Auto) 57 % (31-73) Lymphocytes (%) (Auto) 30 % (24-48) Monocytes (%) (Auto) 8 % (0-9) Eosinophils (%) (Auto) 4 % (0-3) Basophils (%) (Auto) 1 % (0-3) Neutrophils # (Auto) 4.4 x10^3uL (1.8-7.7) Lymphocytes # (Auto) 2.3 x10^3/uL (1.0-4.8) Monocytes # (Auto) 0.7 x10^3/uL (0.0-1.1) Eosinophils # (Auto) 0.3 x10^3/uL (0.0-0.7) Basophils # (Auto) 0.1 x10^3/uL (0.0-0.2) Prothrombin Time 41.8 SEC (11.7-14.0) Prothromb Time International Ratio 4.4 (0.8-1.1) Sodium Level 139 mmol/L (136-145) Potassium Level 4.5 mmol/L (3.5-5.1) Chloride Level 104 mmol/L (98-107) Carbon Dioxide Level 25 mmol/L (21-32) Anion Gap 10 (6-14) Blood Urea Nitrogen 17 mg/dL (8-26) Creatinine 1.1 mg/dL (0.7-1.3) Estimated GFR (Cockcroft-Gault) 67.6 BUN/Creatinine Ratio 15 (6-20) Glucose Level 110 mg/dL (70-99) Calcium Level 8.6 mg/dL (8.5-10.1) Total Bilirubin 0.8 mg/dL (0.2-1.0) Aspartate Amino Transf (AST/SGOT) 21 U/L (15-37) Alanine Aminotransferase (ALT/SGPT) 27 U/L (16-63) Alkaline Phosphatase 82 U/L (46-116) Total Protein 8.3 g/dL (6.4-8.2) Albumin 3.3 g/dL (3.4-5.0) Albumin/Globulin Ratio 0.7 (1.0-1.7) Triglycerides Level 37 mg/dL (0-150) Cholesterol Level 78 mg/dL (0-200) LDL Cholesterol, Calculated 40 mg/dL (0-100) VLDL Cholesterol, Calculated 7 mg/dL (0-40) Non-HDL Cholesterol Calculated 47 mg/dL (0-129) HDL Cholesterol 31 mg/dL (40-60) Cholesterol/HDL Ratio 2.5 Glucose (Fingerstick) 105 mg/dL (70-99) 173 mg/dL (70-99) ASSESSMENT/PLAN ASSESSMENT/PLAN 1. Syncope 2. AFIB/flutter; rate intermittently elevated. 3. Hypertension; with initial hypotension. improved with IVFs 4. Chronic systolic HF; appears clinically compensated 5. Probable NICM; LVEF 25-30% per echo 6. ANTHONY; dehydration. improved 7. Diabetes, II 8. H/o DVT. 9. UTI Recommendations Obtain cardiac records from [facility] and [facility] Consider converting coreg to Toprol if rate remains intermittent elevated. Further recommendations pending review of OSH records JERILYN RASHEED MD 09/02/18 1265: CARDIAC CONSULT ASSESSMENT/PLAN ASSESSMENT/PLAN Patient seen and examined. Agree with above nurse practitioner note. 62-year-old man with presumed nonischemic cardio myopathy although it appears that he does not have any recent ischemic evaluation. On examination he appears euvolemic. He is currently in sinus rhythm. Continue medical therapy. Await medical records. May consider outpatient ischemic evaluation. Thank you for this consultation. KRISTINE CANALES APRN Sep 02, 2018 13:35 JERILYN RASHEED MD Sep 02, 2018 17:53
[2018-09-02] MEDS ORDERED: FUROSEMIDE 20 MG TABLET PO SCH (16:00)
[2018-09-02] MEDS: LACTOBACILLUS RHAMNOSUS GG 1 CAPSULE. PO SCH (20:55)
[2018-09-02] MEDS: INSULIN GLARGINE 300 UNITS/3 ML INSULN.PEN. SQ SCH (21:00)
[2018-09-03 03:05] VITALS: BP 103/63
[2018-09-03] MEDS: IV NORMAL SALINE 1000ML BAG 1,000 ML IV SCH (03:35)
[2018-09-03] MEDS: BRIMONIDINE 0.2% OPHTH SOLUTION 5ML BOTTLE. OD SCH (06:10)
[2018-09-03 07:00] VITALS: BP 132/84
[2018-09-03] MEDS: INSULIN LISPRO 300 UNITS/3 ML INSULN.PEN. SQ SCH ×2 (08:00→12:37)
[2018-09-03] MEDS: LOSARTAN POTASSIUM 50 MG TABLET. PO SCH (08:48)
[2018-09-03] MEDS: LACTOBACILLUS RHAMNOSUS GG 1 CAPSULE. PO SCH (08:49)
[2018-09-03] MEDS: SPIRONOLACTONE 25 MG TABLET PO SCH (08:49)
[2018-09-03] MEDS: TIMOLOL 0.5% OPHTH SOLUTION 5ML BOTTLE. OD SCH (08:52)
[2018-09-03] MEDS: ATROPINE 1% OPHTH SOLUTION 5ML BOTTLE. OD SCH (08:53)
[2018-09-03] MEDS: DEXAMETHASONE 0.1% OPHTH SOLUTION 5ML BOTTLE. OD SCH (08:53)
[2018-09-03] MEDS: GABAPENTIN 300 MG CAPSULE. PO SCH (08:55)
--- NOTE | 2018-09-03 08:55 | NUR ---
RN Morning fingerstick was [address] Baker. 0830 gave Dextrose per protocol. Rechecked BS. 170 at 0847
[2018-09-03] MEDS: CARVEDILOL 12.5 MG TABLET. PO SCH (08:56)
--- NOTE | 2018-09-03 09:36 | PDOC ---
PROGRESS NOTES Chief Complaint Chief Complaint Syncopal episode LV EF 25-30% Afib- taking coumadin elevated Cr Hyperkalemia Supratherapeutic INR UTI HLD HTN History of Present Illness History of Present Illness Mr Barnes is a 62yo M admitted for syncope, h/o Afib, HLD, HTN Pt was seen and examined with family at bedside. Discussed with pt family. Discussed with RN Pt denies further complaints. Resting comfortably in bed with NAD. Cardiac Echo yesterday showed LV EF 25-30% with global dyskinesis of the LV, cardiology following Vitals Vitals Vital Signs Date Time Temp Pulse Resp B/P (MAP) Pulse Ox O2 Delivery O2 Flow Rate FiO2 09/03/18 08:56 81 132/84 09/03/18 07:00 97.5 18 100 Room Air 97.5 Physical Exam General: Alert, Oriented X3, Cooperative, No acute distress Heart: Other (tele Aflutter) Lungs: Clear Abdomen: Soft, No tenderness Extremities: No edema, Normal pulses Skin: No rashes, No significant lesion Labs LABS Laboratory Tests Test 09/02/18 11:30 09/02/18 16:39 09/02/18 20:40 09/03/18 08:19 Glucose (Fingerstick) 173 mg/dL (70-99) 118 mg/dL (70-99) 140 mg/dL (70-99) 49 mg/dL (70-99) Review of Systems Review of Systems Pt denies CP, SOB, HENNESSY, dizzziness, weakness, N/V/D Assessment and Plan Assessmemt and Plan Problems Medical Problems: (1) Atrial flutter Status: Acute (2) Supratherapeutic INR Status: Acute (3) Syncope Status: Acute (4) Urinary tract infection Status: Acute Assessment- Syncopal episode LV EF 25-30% Afib- taking coumadin elevated Cr Hyperkalemia Supratherapeutic INR UTI HLD HTN Plan Cardiology following- LVEF 25-30%, appreciate recs and further work up Cardiac monitoring serial cardiac enzymes serial ECGs appreciate subspecialty recs- cards, neuro, nephro routine labs PT/OT DVT prophylaxis D/C disposition pending Hope to dc today if ok with consultants Comment Review of Relevant I have reviewed the following items katja (where applicable) has been applied. Labs Laboratory Tests Test 09/01/18 11:58 09/01/18 14:00 09/01/18 16:05 09/01/18 16:57 Glucose (Fingerstick) 177 mg/dL (70-99) 160 mg/dL (70-99) Troponin I Quantitative 0.018 ng/mL (0.000-0.055) < 0.017 ng/mL (0.000-0.055) Test 09/01/18 20:43 09/02/18 06:15 09/02/18 08:15 09/02/18 11:30 Glucose (Fingerstick) 152 mg/dL (70-99) 105 mg/dL (70-99) 173 mg/dL (70-99) White Blood Count 7.8 x10^3/uL (4.0-11.0) Red Blood Count 4.90 x10^6/uL (4.30-5.70) Hemoglobin 14.0 g/dL (13.0-17.5) Hematocrit 43.3 % (39.0-53.0) Mean Corpuscular Volume 88 fL (79-100) Mean Corpuscular Hemoglobin 29 pg (25-35) Mean Corpuscular Hemoglobin Concent 32 g/dL (31-37) Red Cell Distribution Width 14.5 % (11.5-14.5) Platelet Count 216 x10^3/uL (140-400) Neutrophils (%) (Auto) 57 % (31-73) Lymphocytes (%) (Auto) 30 % (24-48) Monocytes (%) (Auto) 8 % (0-9) Eosinophils (%) (Auto) 4 % (0-3) Basophils (%) (Auto) 1 % (0-3) Neutrophils # (Auto) 4.4 x10^3uL (1.8-7.7) Lymphocytes # (Auto) 2.3 x10^3/uL (1.0-4.8) Monocytes # (Auto) 0.7 x10^3/uL (0.0-1.1) Eosinophils # (Auto) 0.3 x10^3/uL (0.0-0.7) Basophils # (Auto) 0.1 x10^3/uL (0.0-0.2) Prothrombin Time 41.8 SEC (11.7-14.0) Prothromb Time International Ratio 4.4 (0.8-1.1) Sodium Level 139 mmol/L (136-145) Potassium Level 4.5 mmol/L (3.5-5.1) Chloride Level 104 mmol/L (98-107) Carbon Dioxide Level 25 mmol/L (21-32) Anion Gap 10 (6-14) Blood Urea Nitrogen 17 mg/dL (8-26) Creatinine 1.1 mg/dL (0.7-1.3) Estimated GFR (Cockcroft-Gault) 67.6 BUN/Creatinine Ratio 15 (6-20) Glucose Level 110 mg/dL (70-99) Calcium Level 8.6 mg/dL (8.5-10.1) Total Bilirubin 0.8 mg/dL (0.2-1.0) Aspartate Amino Transf (AST/SGOT) 21 U/L (15-37) Alanine Aminotransferase (ALT/SGPT) 27 U/L (16-63) Alkaline Phosphatase 82 U/L (46-116) Total Protein 8.3 g/dL (6.4-8.2) Albumin 3.3 g/dL (3.4-5.0) Albumin/Globulin Ratio 0.7 (1.0-1.7) Triglycerides Level 37 mg/dL (0-150) Cholesterol Level 78 mg/dL (0-200) LDL Cholesterol, Calculated 40 mg/dL (0-100) VLDL Cholesterol, Calculated 7 mg/dL (0-40) Non-HDL Cholesterol Calculated 47 mg/dL (0-129) HDL Cholesterol 31 mg/dL (40-60) Cholesterol/HDL Ratio 2.5 Test 09/02/18 16:39 09/02/18 20:40 09/03/18 08:19 Glucose (Fingerstick) 118 mg/dL (70-99) 140 mg/dL (70-99) 49 mg/dL (70-99) Laboratory Tests Test 09/02/18 11:30 09/02/18 16:39 09/02/18 20:40 09/03/18 08:19 Glucose (Fingerstick) 173 mg/dL (70-99) 118 mg/dL (70-99) 140 mg/dL (70-99) 49 mg/dL (70-99) Microbiology 09/01/18 Blood Culture - Preliminary, Resulted NO GROWTH AFTER 1 DAY Medications Current Medications Ondansetron HCl (Zofran) 4 mg PRN Q8HRS PRN IV NAUSEA/VOMITING; Start 09/01/18 at 10:15; Stop 09/02/18 at 10:14; Status DC Sodium Chloride 1,000 ml @ 100 mls/hr Q10H IV Last administered on 09/01/18at 19 :55; Start 09/01/18 at 10:04; Stop 09/02/18 at 10:03; Status DC Acetaminophen (Tylenol) 650 mg PRN Q4HRS PRN PO FEVER; Start 09/01/18 at 10:15; Stop 09/02/18 at 10:14; Status DC Ceftriaxone Sodium (Rocephin) 1 gm 1X ONCE IVP Last administered on 09/01/18at 10:18; Start 09/01/18 at 10:15; Stop 09/01/18 at 10:16; Status DC Ceftriaxone Sodium (Rocephin) 1 gm Q24H IVP Last administered on 09/02/18at 08:46 ; Start 09/02/18 at 10:00 Sodium Polystyrene Sulfonate (Kayexalate) 30 gm 1X ONCE PO Last administered on 09/01/18at 15:04; Start 09/01/18 at 12:00; Stop 09/01/18 at 12:01; Status DC Sodium Chloride 1,000 ml @ 100 mls/hr Q10H IV Last administered on 09/02/18at 17 :50; Start 09/01/18 at 11:53 Acetaminophen (Tylenol) 650 mg PRN Q4HRS PRN PO TEMP OVER 100.4F OR MILD PAIN; Start 09/01/18 at 12:00 Acetaminophen (Tylenol) 650 mg PRN Q4HRS PRN GT TEMP OVER 100.4F OR MILD PAIN; Start 09/01/18 at 12:00 Al Hydroxide/Mg Hydroxide (Mylanta Plus Xs) 30 ml PRN DAILY PRN PO HEARTBURN / GAS; Start 09/01/18 at 12:00 Clonidine HCl (Catapres) 0.1 mg PRN Q6HRS PRN PO SBP>160 OR DBP>90; Start at 12:00 Sodium Monofluorophosphate (Fleet Adult) 133 ml PRN DAILY PRN [place] CONSTIPATION; Start 09/01/18 at 12:00 Docusate Sodium (Colace) 100 mg PRN BID PRN PO CONSTIPATION; Start 09/01/18 at 12:00 Albuterol Sulfate (Ventolin Neb Soln) 2.5 mg PRN Q4HRS PRN NEB SHORTNESS OF BREATH; Start 09/01/18 at 12:00 Guaifenesin (Robitussin) 200 mg PRN Q4HRS PRN PO COUGH; Start 09/01/18 at 12:00 Carvedilol (Coreg) 18.75 mg BIDWMEALS PO Last administered on 09/03/18 08:56; Start 09/01/18 at 17:00 Furosemide (Lasix) 60 mg QMWF PO ; Start 09/02/18 at 16:00 Gabapentin (Neurontin) 300 mg BIDWMEALS PO Last administered on 09/03/18 08:55 ; Start 09/01/18 at 17:00 Insulin Glargine (Lantus) 58 units QHS SQ Last administered on 09/02/18 21:00; Start 09/01/18 at 21:00 Losartan Potassium (Cozaar) 50 mg DAILY PO Last administered on 09/03/18 08:48 ; Start 09/02/18 at 09:00 Atropine Sulfate (Isopto Atropine) 1 drop BID OD Last administered on 09/03/18 08:53; Start 09/01/18 at 21:00 Brimonidine Tartrate (Alphagan) 1 drop Q8HRS OD Last administered on 09/03/18 06:10; Start 09/01/18 at 22:00 Gabapentin (Neurontin) 600 mg QHS PO Last administered on 09/02/18 20:55; Start 09/01/18 at 21:00 Insulin Human Lispro (HumaLOG) 28 units TIDWMEALS SQ Last administered on 17:47; Start 09/01/18 at 17:00 Dexamethasone (Maxidex) 1 drop QID OD Last administered on 09/03/18 08:53; Start 09/01/18 at 17:00 Spironolactone (Aldactone) 25 mg DAILY PO Last administered on 09/03/18 08:49; Start 09/02/18 at 09:00 Timolol Maleate (Timoptic 0.5% Ophth) 1 drop TID OD Last administered on 08:52; Start 09/01/18 at 21:00 Dextrose (Dextrose 50%-Water Syringe) 12.5 gm PRN Q15MIN PRN IV SEE COMMENTS Last administered on 09/03/18 08:30; Start 09/01/18 at 14:15 Lactobacillus Rhamnosus (Culturelle) 1 cap BID PO Last administered on at 08:49; Start 09/02/18 at 21:00 Active Scripts Active Reported Alphagan P (Brimonidine Tartrate) 5 Ml Drops 1 Drop RIGHTEYE TID Timoptic 0.5% (Timolol Maleate) 10 Ml Drops 1 Drop RIGHTEYE TID Prednisolone Acetate 5 Ml Drops.susp 1 Drop RIGHTEYE QID Atropine Sulfate 2 Ml Drops 1 Drop RIGHTEYE BID Lantus Solostar (Insulin Glargine,Hum.rec.anlog) 100 Unit/1 Ml Insuln.pen 58 Unit SQ QHS Novolog Flexpen (Insulin Aspart) 100 Unit/1 Ml Insuln.pen 28 Unit SQ TIDWMEALS Furosemide 20 Mg Tablet 60 Mg PO QMWF Spironolactone 25 Mg Tablet 1 Tab PO DAILY Carvedilol (Carvedilol) 12.5 Mg Tablet 18.75 Mg PO BIDWMEALS Losartan Potassium 50 Mg Tablet 50 Mg PO DAILY Warfarin Sodium 2.5 Mg Tablet 2.5 Mg PO QMTH Warfarin Sodium 5 Mg Tablet 5 Mg PO QTUTHSASU Gabapentin 600 Mg Tablet 600 Mg PO QHS Gabapentin (Gabapentin) 300 Mg Capsule 300 Mg PO BIDWMEALS Vitals/I & O Vital Sign - Last 24 Hours 09/02/18 09/02/18 09/02/18 09/02/18 11:08 14:48 17:43 19:30 Temp 97.7 97.5 97.5 97.7 97.5 97.5 Pulse 78 102 102 72 Resp 20 20 20 B/P (MAP) 132/71 (91) 97/58 (71) 97/58 101/67 (78) Pulse Ox 98 97 99 O2 Delivery Room Air Room Air Room Air 09/02/18 09/02/18 09/03/18 09/03/18 20:00 23:10 03:05 07:00 Temp 97.7 97.7 97.5 97.7 97.7 97.5 Pulse 71 75 62 Resp 18 20 18 B/P (MAP) 104/71 (82) 103/63 (76) 132/84 (100) Pulse Ox 99 98 100 O2 Delivery Room Air Room Air Room Air Room Air 09/03/18 09/03/18 08:48 08:56 Pulse 81 81 B/P (MAP) 132/84 132/84 Intake and Output 09/02/18 09/02/18 09/03/18 15:00 23:00 07:00 Intake Total 360 ml 480 ml 440 ml Balance 360 ml 480 ml 440 ml SHABNAM ESPANA III DO Sep 03, 2018 09:36
--- NOTE | 2018-09-03 10:14 | PDOC ---
PROGRESS NOTES Assessment Problems Medical Problems: (1) Atrial flutter Status: Acute (2) Supratherapeutic INR Status: Acute (3) Syncope Status: Acute (4) Urinary tract infection Status: Acute Syncope. Seizure evaluation negative. Hypotension events. Tachycardia. AFib. CHF. DM. HTN. Renal insufficiency. Obesity. Cerebral atrophy. Plan Okay for discharge from neuro perspective Discussed with his and daughter Subjective No complaints Objective Vital Signs Date Time Temp Pulse Resp B/P (MAP) Pulse Ox O2 Delivery O2 Flow Rate FiO2 09/03/18 08:56 81 132/84 09/03/18 07:00 97.5 18 100 Room Air 97.5 Intake and Output 09/03/18 07:00 Intake Total 1280 ml Balance 1280 ml Intake Oral 1280 ml PHYSICAL EXAM Alert. Oriented to time, place and person. PERRL. EOMI. CN: no focal findings. Muscle tone: normal. Muscle strength: 5/5 DTR: 1+ Plantar reflex: flexor Gait: normal. Sensory exam: no abnormal findings. No cerebellar signs elicited. Review of Relevant I have reviewed the following items katja (where applicable) has been applied. Labs Laboratory Tests Test 09/01/18 11:58 09/01/18 14:00 09/01/18 16:05 09/01/18 16:57 Glucose (Fingerstick) 177 mg/dL (70-99) 160 mg/dL (70-99) Troponin I Quantitative 0.018 ng/mL (0.000-0.055) < 0.017 ng/mL (0.000-0.055) Test 09/01/18 20:43 09/02/18 06:15 09/02/18 08:15 09/02/18 11:30 Glucose (Fingerstick) 152 mg/dL (70-99) 105 mg/dL (70-99) 173 mg/dL (70-99) White Blood Count 7.8 x10^3/uL (4.0-11.0) Red Blood Count 4.90 x10^6/uL (4.30-5.70) Hemoglobin 14.0 g/dL (13.0-17.5) Hematocrit 43.3 % (39.0-53.0) Mean Corpuscular Volume 88 fL (79-100) Mean Corpuscular Hemoglobin 29 pg (25-35) Mean Corpuscular Hemoglobin Concent 32 g/dL (31-37) Red Cell Distribution Width 14.5 % (11.5-14.5) Platelet Count 216 x10^3/uL (140-400) Neutrophils (%) (Auto) 57 % (31-73) Lymphocytes (%) (Auto) 30 % (24-48) Monocytes (%) (Auto) 8 % (0-9) Eosinophils (%) (Auto) 4 % (0-3) Basophils (%) (Auto) 1 % (0-3) Neutrophils # (Auto) 4.4 x10^3uL (1.8-7.7) Lymphocytes # (Auto) 2.3 x10^3/uL (1.0-4.8) Monocytes # (Auto) 0.7 x10^3/uL (0.0-1.1) Eosinophils # (Auto) 0.3 x10^3/uL (0.0-0.7) Basophils # (Auto) 0.1 x10^3/uL (0.0-0.2) Prothrombin Time 41.8 SEC (11.7-14.0) Prothromb Time International Ratio 4.4 (0.8-1.1) Sodium Level 139 mmol/L (136-145) Potassium Level 4.5 mmol/L (3.5-5.1) Chloride Level 104 mmol/L (98-107) Carbon Dioxide Level 25 mmol/L (21-32) Anion Gap 10 (6-14) Blood Urea Nitrogen 17 mg/dL (8-26) Creatinine 1.1 mg/dL (0.7-1.3) Estimated GFR (Cockcroft-Gault) 67.6 BUN/Creatinine Ratio 15 (6-20) Glucose Level 110 mg/dL (70-99) Calcium Level 8.6 mg/dL (8.5-10.1) Total Bilirubin 0.8 mg/dL (0.2-1.0) Aspartate Amino Transf (AST/SGOT) 21 U/L (15-37) Alanine Aminotransferase (ALT/SGPT) 27 U/L (16-63) Alkaline Phosphatase 82 U/L (46-116) Total Protein 8.3 g/dL (6.4-8.2) Albumin 3.3 g/dL (3.4-5.0) Albumin/Globulin Ratio 0.7 (1.0-1.7) Triglycerides Level 37 mg/dL (0-150) Cholesterol Level 78 mg/dL (0-200) LDL Cholesterol, Calculated 40 mg/dL (0-100) VLDL Cholesterol, Calculated 7 mg/dL (0-40) Non-HDL Cholesterol Calculated 47 mg/dL (0-129) HDL Cholesterol 31 mg/dL (40-60) Cholesterol/HDL Ratio 2.5 Test 09/02/18 16:39 09/02/18 20:40 09/03/18 08:19 09/03/18 08:47 Glucose (Fingerstick) 118 mg/dL (70-99) 140 mg/dL (70-99) 49 mg/dL (70-99) 170 mg/dL (70-99) Laboratory Tests Test 09/02/18 11:30 09/02/18 16:39 09/02/18 20:40 09/03/18 08:19 Glucose (Fingerstick) 173 mg/dL (70-99) 118 mg/dL (70-99) 140 mg/dL (70-99) 49 mg/dL (70-99) Test 09/03/18 08:47 Glucose (Fingerstick) 170 mg/dL (70-99) Microbiology 09/01/18 Blood Culture - Preliminary, Resulted NO GROWTH AFTER 1 DAY Medications Current Medications Ondansetron HCl (Zofran) 4 mg PRN Q8HRS PRN IV NAUSEA/VOMITING; Start 09/01/18 at 10:15; Stop 09/02/18 at 10:14; Status DC Sodium Chloride 1,000 ml @ 100 mls/hr Q10H IV Last administered on 09/01/18at 19 :55; Start 09/01/18 at 10:04; Stop 09/02/18 at 10:03; Status DC Acetaminophen (Tylenol) 650 mg PRN Q4HRS PRN PO FEVER; Start 09/01/18 at 10:15; Stop 09/02/18 at 10:14; Status DC Ceftriaxone Sodium (Rocephin) 1 gm 1X ONCE IVP Last administered on 09/01/18at 10:18; Start 09/01/18 at 10:15; Stop 09/01/18 at 10:16; Status DC Ceftriaxone Sodium (Rocephin) 1 gm Q24H IVP Last administered on 09/02/18 08:46 ; Start 09/02/18 at 10:00 Sodium Polystyrene Sulfonate (Kayexalate) 30 gm 1X ONCE PO Last administered on 09/01/18at 15:04; Start 09/01/18 at 12:00; Stop 09/01/18 at 12:01; Status DC Sodium Chloride 1,000 ml @ 100 mls/hr Q10H IV Last administered on 09/02/18at 17 :50; Start 09/01/18 at 11:53 Acetaminophen (Tylenol) 650 mg PRN Q4HRS PRN PO TEMP OVER 100.4F OR MILD PAIN; Start 09/01/18 at 12:00 Acetaminophen (Tylenol) 650 mg PRN Q4HRS PRN GT TEMP OVER 100.4F OR MILD PAIN; Start 09/01/18 at 12:00 Al Hydroxide/Mg Hydroxide (Mylanta Plus Xs) 30 ml PRN DAILY PRN PO HEARTBURN / GAS; Start 09/01/18 at 12:00 Clonidine HCl (Catapres) 0.1 mg PRN Q6HRS PRN PO SBP>160 OR DBP>90; Start at 12:00 Sodium Monofluorophosphate (Fleet Adult) 133 ml PRN DAILY PRN [place] CONSTIPATION; Start 09/01/18 at 12:00 Docusate Sodium (Colace) 100 mg PRN BID PRN PO CONSTIPATION; Start 09/01/18 at 12:00 Albuterol Sulfate (Ventolin Neb Soln) 2.5 mg PRN Q4HRS PRN NEB SHORTNESS OF BREATH; Start 09/01/18 at 12:00 Guaifenesin (Robitussin) 200 mg PRN Q4HRS PRN PO COUGH; Start 09/01/18 at 12:00 Carvedilol (Coreg) 18.75 mg BIDWMEALS PO Last administered on 09/03/18 08:56; Start 09/01/18 at 17:00 Furosemide (Lasix) 60 mg QMWF PO ; Start 09/02/18 at 16:00 Gabapentin (Neurontin) 300 mg BIDWMEALS PO Last administered on 09/03/18at 08:55 ; Start 09/01/18 at 17:00 Insulin Glargine (Lantus) 58 units QHS SQ Last administered on 09/02/18 21:00; Start 09/01/18 at 21:00 Losartan Potassium (Cozaar) 50 mg DAILY PO Last administered on 09/03/18 08:48 ; Start 09/02/18 at 09:00 Atropine Sulfate (Isopto Atropine) 1 drop BID OD Last administered on 09/03/18 08:53; Start 09/01/18 at 21:00 Brimonidine Tartrate (Alphagan) 1 drop Q8HRS OD Last administered on 09/03/18 06:10; Start 09/01/18 at 22:00 Gabapentin (Neurontin) 600 mg QHS PO Last administered on 09/02/18 20:55; Start 09/01/18 at 21:00 Insulin Human Lispro (HumaLOG) 28 units TIDWMEALS SQ Last administered on 17:47; Start 09/01/18 at 17:00 Dexamethasone (Maxidex) 1 drop QID OD Last administered on 09/03/18 08:53; Start 09/01/18 at 17:00 Spironolactone (Aldactone) 25 mg DAILY PO Last administered on 09/03/18 08:49; Start 09/02/18 at 09:00 Timolol Maleate (Timoptic 0.5% [facility]) 1 drop TID OD Last administered on 08:52; Start 09/01/18 at 21:00 Dextrose (Dextrose 50%-Water Syringe) 12.5 gm PRN Q15MIN PRN IV SEE COMMENTS Last administered on 09/03/18 08:30; Start 09/01/18 at 14:15 Lactobacillus Rhamnosus (Culturelle) 1 cap BID PO Last administered on 08:49; Start 09/02/18 at 21:00 Active Scripts Active Reported Alphagan P (Brimonidine Tartrate) 5 Ml Drops 1 Drop RIGHTEYE TID Timoptic 0.5% (Timolol Maleate) 10 Ml Drops 1 Drop RIGHTEYE TID Prednisolone Acetate 5 Ml Drops.susp 1 Drop RIGHTEYE QID Atropine Sulfate 2 Ml Drops 1 Drop RIGHTEYE BID Lantus Solostar (Insulin Glargine,Hum.rec.anlog) 100 Unit/1 Ml Insuln.pen 58 Unit SQ QHS Novolog Flexpen (Insulin Aspart) 100 Unit/1 Ml Insuln.pen 28 Unit SQ TIDWMEALS Furosemide 20 Mg Tablet 60 Mg PO QMWF Spironolactone 25 Mg Tablet 1 Tab PO DAILY Carvedilol (Carvedilol) 12.5 Mg Tablet 18.75 Mg PO BIDWMEALS Losartan Potassium 50 Mg Tablet 50 Mg PO DAILY Warfarin Sodium 2.5 Mg Tablet 2.5 Mg PO QMTH Warfarin Sodium 5 Mg Tablet 5 Mg PO QTUTHSASU Gabapentin 600 Mg Tablet 600 Mg PO QHS Gabapentin (Gabapentin) 300 Mg Capsule 300 Mg PO BIDWMEALS Vitals/I & O Vital Sign - Last 24 Hours 09/02/18 09/02/18 09/02/18 09/02/18 11:08 14:48 17:43 19:30 Temp 97.7 97.5 97.5 97.7 97.5 97.5 Pulse 78 102 102 72 Resp 20 20 20 B/P (MAP) 132/71 (91) 97/58 (71) 97/58 101/67 (78) Pulse Ox 98 97 99 O2 Delivery Room Air Room Air Room Air 09/02/18 09/02/18 09/03/18 09/03/18 20:00 23:10 03:05 07:00 Temp 97.7 97.7 97.5 97.7 97.7 97.5 Pulse 71 75 62 Resp 18 20 18 B/P (MAP) 104/71 (82) 103/63 (76) 132/84 (100) Pulse Ox 99 98 100 O2 Delivery Room Air Room Air Room Air Room Air 09/03/18 09/03/18 08:48 08:56 Pulse 81 81 B/P (MAP) 132/84 132/84 Intake and Output 09/02/18 09/02/18 09/03/18 15:00 23:00 07:00 Intake Total 360 ml 480 ml 440 ml Balance 360 ml 480 ml 440 ml SUNNI QUEZADA MD Sep 03, 2018 10:14
[2018-09-03] MEDS: cefTRIAXone IV Push 1 GM VIAL. IVP SCH (10:36)
[2018-09-03 11:00] VITALS: BP 136/80
--- NOTE | 2018-09-03 14:15 | NUR ---
Discharge Note: TAMICA RAMIREZ Discharge instructions and discharge home medications reviewed with Patient/family and a copy given. All questions have been answered and understanding verbalized. The following instructions and handouts were given: syncope, UTI, warfarin Discontinued lines and drains: Peripheral IV intact. Patient discharged to Home or Self Care with Family Member via Wheelchair
--- NOTE | 2018-09-03 17:47 | DS ---
DATE OF DISCHARGE: 09/03/2018 ADMISSION DIAGNOSES: Acute on chronic systolic and diastolic heart failure, syncope, sepsis, urinary tract infection, slightly elevated INR. DISCHARGE DIAGNOSES: Resolving acute on chronic heart failure, resolving urinary tract infection. CONSULTS: Dr. Ash, Dr. Mancilla and Dr. Magaña. PROCEDURES: None. HOSPITAL COURSE: The patient is a pleasant middle-aged male who basically presented for a syncopal episode. He does have known heart failure. While in the ER, it was noted that his INR was a little high at 5.6. We admitted the patient. The above consults were obtained. We have done a pretty extensive evaluation. His INR is down to 4.4, still a little high, but better. Clinically, I did examine the patient this morning and he seems to be clinically at his baseline. It should be noted that he does have a 25-30% ejection fraction, but overall doing well. His heart tones were normal. His lungs were clear. He was alert and oriented. We plan to discharge if okay with the consultants. DISPOSITION: Home. ACTIVITY: As tolerated. DIET: Low sodium. MEDICATIONS: Please see the MRAD. TOTAL TIME: 33 minutes. SHABNAM ESPANA DO DR: SUNNY/ras JOB#: [id number] / [id number]
== END 2018-09-03 14:15 | disposition home or self-care (01) | DRG 689 ==
LOC: ER 08:22 → 2 NORTH 09:32
PROVIDERS: ADMIT Family Medicine; ATTEND Family Medicine
DX: N39.0 Urinary tract infection, site not specified (principal); N17.0 Acute kidney failure with tubular necrosis; I50.43 Acute on chronic combined systolic (congestive) and diastolic (congestive) heart failure; I48.92 Unspecified atrial flutter; I42.0 Dilated cardiomyopathy; E11.9 Type 2 diabetes mellitus without complications; G31.9 Degenerative disease of nervous system, unspecified; I11.0 Hypertensive heart disease with heart failure; E66.01 Morbid (severe) obesity due to excess calories; R00.0 Tachycardia, unspecified; E87.5 Hyperkalemia; E78.5 Hyperlipidemia, unspecified; E86.0 Dehydration; I48.91 Unspecified atrial fibrillation; R79.1 Abnormal coagulation profile; Z79.01 Long term (current) use of anticoagulants; Z82.3 Family history of stroke; Z82.49 Family history of ischemic heart disease and other diseases of the circulatory system; Z79.899 Other long term (current) drug therapy; Z86.718 Personal history of other venous thrombosis and embolism; Z68.34 Body mass index [BMI] 34.0-34.9, adult
CPT/HCPCS: 36415; 70450; 71045; 80047; 80053; 80061; 81001; 82962; 83735; 83880; 84484; 85025; 85610; 87040; 87086; 87186; 93005; 93306; 93880; 95816; 96374; J0696; J1815; J7030; J7042; 99285-25

== ENCOUNTER 2019-01-10 04:30 | Emergency (ER) | payer SELFPAY ==
[~2019-01-10] VITALS: Ht 180.3 cm; Wt 133.4 kg
[~2019-01-10 04:30] MED LIST: ATRO2DRO3 RIGHTEYE; BRIM5DRO3 RIGHTEYE; CARV12.511 PO; CARV25TA2 PO; FURO20TA3 PO; GABA300C18 PO; GABA600T7 PO; INSU100I13 SQ; INSU100I17 SQ; LOSA-73 PO; PRED5DRO16 RIGHTEYE; SIMV20TA3 PO; SPIR25TA5 PO; TIMO10DR5 RIGHTEYE; WARF-31 PO; WARF2.5T71 PO
[2019-01-10 04:35] VITALS: BP 129/70
--- NOTE | 2019-01-10 05:01 | PHYS DOC ---
Past Medical History Past Medical History: A-Fib, CHF, Diabetes-Type II, Hypertension, [place] Past Surgical History: No Surgical History Additional Past Surgical Histo: R eye Additional Information: Nonsmoker Alcohol Use: None Drug Use: None Adult General Chief Complaint Chief Complaint: EYE PROBLEMS HPI HPI Patient is a 63-year-old male who presents with right eye pain. A year ago he had "blood inside his eye" that was removed surgically, they were able to remove 80%. 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 One week ago he started having right eye pain. The pain is sharp and radiates back into his head. His having increased tearing but no crusting or pus coming from his eye. He says it hurts to move his eye around. He says that he feels like something is inside his eye. He has redness in his eye that is not usually present. He had a similar sensation after he had surgery 8 years ago that went away on its own. Review of Systems Review of Systems Constitutional: Denies fever or chills Eyes: Reports redness and eye pain HENT: Denies nasal congestion or sore throat Respiratory: Denies cough or shortness of breath Cardiovascular: Denies chest pain or palpitations GI: Denies abdominal pain, nausea, or vomiting : Denies dysuria or hematuria Musculoskeletal: Denies back pain or joint pain Integument: Denies rash or skin lesions Neurologic: Denies headache, focal weakness or sensory changes Complete systems were reviewed and found to be within normal limits, except as documented in this note. Current Medications Current Medications Current Medications Medications (Trade) Dose Ordered Sig/Giorgio Start Time Stop Time Status Last Admin Dose Admin Erythromycin (Romycin) 0.25 inch 1X ONCE 01/10/19 05:15 01/10/19 05:20 DC Fluorescein Sodium (Ful-Florina) 1 strip 1X ONCE 01/10/19 05:15 01/10/19 05:20 DC Tetracaine HCl (Tetracaine) 1 drop 1X ONCE 01/10/19 05:15 01/10/19 05:20 DC Allergies Allergies Allergies Coded Allergies Type Severity Reaction Last Updated Verified No Known Drug Allergies 01/11/18 No Physical Exam Physical Exam Constitutional: Well developed, well nourished, no acute distress, non-toxic appearance HENT: Normocephalic, atraumatic, oropharynx moist Eyes: PERRL, EOMI but tenderness present, conjunctiva erythematous, serous discharge, tenderness on upper eyelid. Floricine dye visualized with Wood's lamp and did not show any corneal injury. Tonopen readings 39, 41, 43 Neck: Normal range of motion, no tenderness, supple Cardiovascular: Heart rate normal, regular rhythm Lungs & Thorax: Bilateral breath sounds clear to auscultation, no wheezing Abdomen: Soft, no tenderness Skin: Warm, dry, no erythema, no rash Back: No tenderness, no CVA tenderness Extremities: No tenderness, ROM intact, no edema Neurologic: Alert and oriented X 3, normal motor function, normal sensory function, no focal deficits noted Psychologic: Affect normal, judgement normal, mood normal Current Patient Data Vital Signs Vital Signs Date Time Temp Pulse Resp B/P (MAP) Pulse Ox O2 Delivery O2 Flow Rate FiO2 01/10/19 04:35 97.5 61 16 129/70 (89) 99 Room Air 97.5 EKG EKG [] Radiology/Procedures Radiology/Procedures [] Course & Med Decision Making Course & Med Decision Making Mr. Barnes is a 63-year-old man who presents with right eye pain. He has a history of "blood inside of his right eye" that was removed a year ago, but was left blind. A week ago he started having pain and redness in his right eye with increased tearfulness. He visited his eye doctor who gave him ointment, but he says it is not helping. On physical exam he has erythematous conjunctiva that is tender to palpation. Tetracaine used to numb the eye with subsequent improvement. Floricine dye visualized on Wood's lamp and did not show corneal injury. Tonopen readings elevated indicative of glaucoma. Due to the new onset conjunctival erythema and the improvement of symptoms with Tetracaine, he is diagnosed with unspecified conjunctivitis. He is prescribed Erythromycin ointment and instructed to continue using his Glaucoma drops as prescribed and follow up with his harp action assembler. Patient stable for discharge with outpatient follow-up with PCP. Discussed findings and plan with patient and family, who acknowledge understanding and a greement. [place] Disclaimer Dragon Disclaimer This electronic medical record was generated, in whole or in part, using a voice recognition dictation system. Departure Departure Impression: Primary Impression: Conjunctivitis Additional Impression: Glaucoma Disposition: 01 HOME, SELF-CARE Condition: STABLE Referrals: ELISE PARHAM DO (PCP) Patient Instructions: Conjunctivitis (Viral and Bacterial), Glaucoma, [id number] Additional Instructions: Please call your harp action assembler today to make an appointment. Please take all your glaucoma medications as previously written. Scripts Erythromycin Base (Erythromycin) 1 Gm Oint...g. 0.25 INCH OP QID for 5 Days, MISC Prov: CALEB STOKES DO 01/10/19 Problem Qualifiers Primary Impression: Conjunctivitis Conjunctivitis type: acute Acute conjunctivitis type: unspecified Laterality: right Qualified Codes: H10.31 - Unspecified acute conjunctivitis, right eye Additional Impression: Glaucoma Glaucoma type: unspecified Laterality: right Qualified Codes: H40.9 - Unspecified glaucoma CALEB STOKES DO Jan 10, 2019 05:01
[2019-01-10] MEDS ORDERED: TETRACAINE 0.5% OPHTH SOLUTION 4ML BOTTLE. OD ONE (05:15)
[2019-01-10] MEDS ORDERED: FLUORESCEIN OPHTH TEST STRIP. OD ONE (05:15)
[2019-01-10] MEDS ORDERED: ERYTHROMYCIN 0.5% OPHTH OINTMENT 1GM TUBE. OD ONE (05:15)
[2019-01-10] MEDS ORDERED: ERYT1OIN6 OP (05:23)
== END 2019-01-10 05:25 | disposition home or self-care (01) ==
LOC: ER 04:30
DX: H10.31 Unspecified acute conjunctivitis, right eye (principal); E11.39 Type 2 diabetes mellitus with other diabetic ophthalmic complication; H42 Glaucoma in diseases classified elsewhere; I48.91 Unspecified atrial fibrillation; I11.0 Hypertensive heart disease with heart failure; I50.9 Heart failure, unspecified; I25.2 Old myocardial infarction
CPT/HCPCS: 99284

== ENCOUNTER 2019-05-26 16:18 | Emergency (ER) | payer OTHER ==
[~2019-05-26] VITALS: Ht 180.3 cm; Wt 135.2 kg
[~2019-05-26 16:18] MED LIST changes: +ERYT1OIN6 OP; +SIMV20TA18 PO; -SIMV20TA3 PO
[2019-05-26] MEDS ORDERED: IV NORMAL SALINE 1000ML BAG 1,000 ML IV SCH (16:52)
[2019-05-26] MEDS ORDERED: MORPHINE SULFATE 4 MG/ML VIAL. IV/SQ PRN (17:00)
--- NOTE | 2019-05-26 17:04 | PHYS DOC ---
Past Medical History Past Medical History: A-Fib, CHF, Diabetes-Type II, Hypertension, [place] Past Surgical History: No Surgical History Additional Past Surgical Histo: R eye Alcohol Use: None Drug Use: None Adult General Chief Complaint Chief Complaint: WEAKNESS/GENERALIZED HPI HPI Patient is a 63-year-old male who presents to the emergency department for evaluation. The patient's chief complaint is generalized weakness that has been going on for over a week, as well as a right ocular and periorbital headache. This has been present for the past several days. The patient has been blind in his right eye for several months, after undergoing what sounds like a vitreous hemorrhage, conjugated by his anticoagulant use, as he is on warfarin for a history of atrial fibrillation. He has undergone several laser surgeries according to his daughter, and saw his medical attendant as recently as today, as he had been under his medical attendant care for elevated ocular pressure on the right. The patient's daughter states that he was instructed to continue taking his eyedrops. He has significant subconjunctival hemorrhage on the right, as well as reddish discoloration of the dilated pupil, but the patient's daughter states that his eye has looked in its current state for the past several weeks, and, as above, he was recently seen by his medical attendant today. He has not had any fevers or chills, new vision changes, numbness, or focal weakness. He denies any chest pain or shortness of breath. There are no alleviating or exacerbating factors to his symptoms. He has not had any black or bloody stools. The history is somewhat limited as the patient does not speak Kyrgyz, speaks primarily Aidine, and there is no slate trimmer available, although the patient's daughter is bilingual and is able to adequately translate, to facilitate the encounter. Review of Systems Review of Systems Constitutional: Denies fever or chills [] Eyes: Denies change in visual acuity, , reports right ocular pain. [] HENT: Denies nasal congestion or sore throat [] Respiratory: Denies cough or shortness of breath [] Cardiovascular: The patient denies any shortness of breath, chest pain, palpitations, or orthopnea [] GI: Denies abdominal pain, nausea, vomiting, bloody stools or diarrhea [] : Denies dysuria or hematuria [] Musculoskeletal: Denies back pain or joint pain [] Integument: Denies rash or skin lesions [] Neurologic: Denies focal weakness or sensory changes [] Endocrine: Denies polyuria or polydipsia [] All other systems were reviewed and found to be within normal limits, except as documented in this note. Current Medications Current Medications Current Medications Medications (Trade) Dose Ordered Sig/Giorgio Start Time Stop Time Status Last Admin Dose Admin Morphine Sulfate (Morphine Sulfate) 4 mg PRN Q15MIN PRN 05/26/19 17:00 05/27/19 16:59 05/26/19 17:25 4 MG Sodium Chloride 1,000 ml @ 100 mls/hr Q10H 05/26/19 16:52 05/27/19 02:51 05/26/19 17:26 100 MLS/HR Allergies Allergies Allergies Coded Allergies Type Severity Reaction Last Updated Verified No Known Drug Allergies 01/11/18 No Physical Exam Physical Exam PHYSICAL EXAM: CONSTITUTIONAL: Well developed, well nourished HEAD: normocephalic, atraumatic EENT: The right pupil is dilated, with reddish discoloration consistent with vitreous hemorrhage, and there is some tenderness to palpation to the periorbital area. There is subconjunctival hemorrhage. The left pupil is round and reactive, Conjunctiva normal color, sclerae non-icteric; moist mucous membranes. NECK: Supple, non-tender; no meningismus. LUNGS: Lungs CTA, breathing even and unlabored. Normal air movement. HEART: Regular rate and rhythm, no murmur CHEST: No deformity; non-tender ABDOMEN: The abdomen is soft, and non-tender, no masses or bruits. EXTREM: Normal ROM; no deformity, no calf tenderness. Normal pulses palpable in all extremities. There is no pedal edema. SKIN: No rash; no diaphoresis NEURO: Alert; normal speech and cognition; CN's grossly intact; strength grossly intact without focal deficit. BACK: No CVA TTP. Current Patient Data Vital Signs Vital Signs Date Time Temp Pulse Resp B/P (MAP) Pulse Ox O2 Delivery O2 Flow Rate FiO2 05/26/19 17:25 20 05/26/19 16:52 98.5 61 135/63 (87) 99 Room Air 98.5 Lab Values Laboratory Tests Test 05/26/19 16:47 05/26/19 17:05 Prothrombin Time 31.9 SEC (11.7-14.0) H Prothrombin Time INR 3.1 (0.8-1.1) H Sodium Level 132 mmol/L (136-145) L Potassium Level 4.2 mmol/L (3.5-5.1) Chloride Level 96 mmol/L (98-107) L Carbon Dioxide Level 24 mmol/L (21-32) Anion Gap 12 (6-14) Blood Urea Nitrogen 24 mg/dL (8-26) Creatinine 1.7 mg/dL (0.7-1.3) H Estimated GFR (Cockcroft-Gault) 40.8 BUN/Creatinine Ratio 14 (6-20) Glucose Level 135 mg/dL (70-99) H Calcium Level 8.7 mg/dL (8.5-10.1) Magnesium Level 2.1 mg/dL (1.8-2.4) Total Bilirubin 0.7 mg/dL (0.2-1.0) Aspartate Amino Transferase (AST) 22 U/L (15-37) Alanine Aminotransferase (ALT) 16 U/L (16-63) Alkaline Phosphatase 97 U/L (46-116) Troponin I Quantitative < 0.017 ng/mL (0.000-0.055) BV-Bqv-F-Type Natriuretic Peptide 504 pg/mL (0-124) H Total Protein 9.2 g/dL (6.4-8.2) H Albumin 4.0 g/dL (3.4-5.0) Albumin/Globulin Ratio 0.8 (1.0-1.7) L Thyroid Stimulating Hormone (TSH) 5.804 uIU/mL (0.358-3.74) H Free Thyroxine 1.31 ng/dL (0.76-1.46) White Blood Count 7.7 x10^3/uL (4.0-11.0) Red Blood Count 4.23 x10^6/uL (4.30-5.70) L Hemoglobin 12.4 g/dL (13.0-17.5) L Hematocrit 37.7 % (39.0-53.0) L Mean Corpuscular Volume 89 fL (79-100) Mean Corpuscular Hemoglobin 29 pg (25-35) Mean Corpuscular Hemoglobin Concent 33 g/dL (31-37) Red Cell Distribution Width 15.3 % (11.5-14.5) H Platelet Count 243 x10^3/uL (140-400) Neutrophils (%) (Auto) 65 % (31-73) Lymphocytes (%) (Auto) 24 % (24-48) Monocytes (%) (Auto) 9 % (0-9) Eosinophils (%) (Auto) 1 % (0-3) Basophils (%) (Auto) 1 % (0-3) Neutrophils # (Auto) 5.0 x10^3/uL (1.8-7.7) Lymphocytes # (Auto) 1.8 x10^3/uL (1.0-4.8) Monocytes # (Auto) 0.7 x10^3/uL (0.0-1.1) Eosinophils # (Auto) 0.1 x10^3/uL (0.0-0.7) Basophils # (Auto) 0.1 x10^3/uL (0.0-0.2) Laboratory Tests 05/26/19 17:05 Laboratory Tests 05/26/19 16:47 EKG EKG AtrialVentricular paced rhythm at a rate of 63 bpm, with no acute ischemic changes, underlying atrial fibrillation is suspected,[] Radiology/Procedures Radiology/Procedures PROCEDURE: CT HEAD WO CONTRAST Exam: CT head INDICATION: Weakness TECHNIQUE: Sequential axial images through the head were obtained without the administration of IV contrast. Comparisons: 09/01/2018 FINDINGS: No focal parenchymal lesion or hemorrhage is identified. There is no midline shift or sulcal effacement. Stable generalized atrophy with prominent extra-axial CSF spaces are noted. Patchy hypodensities in the periventricular and deep white matter which are similar when compared to the prior exam. No acute vascular territory infarction is identified. Robles-white distinction is preserved. The ventricular system is within normal limits without compression hydrocephalus. The basal cisterns are well maintained. The visualized portions of the paranasal sinuses and mastoid air cells are well-pneumatized. No acute fractures. There is hyperdense material within the right globe. IMPRESSION: 1. Chronic ischemic change without acute intracranial abnormality. 2. Hyperdense material within the right globe which is nonspecific. Correlate with physical exam.[] Course & Med Decision Making Course & Med Decision Making Pertinent Labs and Imaging studies reviewed. (See chart for details) [] 6:10 PM: The patient's condition remains stable. He is ambulatory at baseline with the use of his cane. He feels well enough to go home. His primary complaint is right-sided ocular pain which is likely related to his chronic ongoing issues with vitreous hemorrhage. The importance of close follow-up with his medical attendant was discussed in detail. Return precautions were discussed in detail. Dragon Disclaimer Dragon Disclaimer This electronic medical record was generated, in whole or in part, using a voice recognition dictation system. Departure Departure Impression: Primary Impression: Headache Additional Impressions: Weakness Ocular hemorrhage Anticoagulated on warfarin Disposition: HOME, SELF-CARE Condition: STABLE Referrals: NO PCP (PCP) Patient Instructions: General Headache Without Cause, Weakness Additional Instructions: Follow-up with your medical attendant for further evaluation. Please call to schedule an appointment. The prescribed pain medication may cause drowsiness. Use caution while taking. Scripts Hydrocodone/Apap 5-325 (NORCO 5-325 TABLET) 1 Each Tablet 1 TAB PO Q4-6HRS, #15 TAB Prov: ORA GOODWIN MD 05/26/19 Problem Qualifiers ORA GOODWIN MD May 26, 2019 17:04
[2019-05-26 17:14] LABS: BASO # 0.1 x10^3/uL (0.0-0.2); BASO % 1 % (0-3); EOS # 0.1 x10^3/uL (0.0-0.7); EOS % 1 % (0-3); HEMATOCRIT 37.7 % (39.0-53.0); HEMOGLOBIN 12.4 g/dL (13.0-17.5); LYMPH # 1.8 x10^3/uL (1.0-4.8); LYMPH % 24 % (24-48); MEAN CORPUSCULAR HEMOGLOBIN 29 pg (25-35); MEAN CORPUSCULAR HGB CONC 33 g/dL (31-37); MEAN CORPUSCULAR VOLUME 89 fL (79-100); MONO # 0.7 x10^3/uL (0.0-1.1); MONO % 9 % (0-9); NEUT % 65 % (31-73); PLATELET COUNT 243 x10^3/uL (140-400); RED BLOOD COUNT 4.23 x10^6/uL (4.30-5.70); RED CELL DISTRIBUTION WIDTH 15.3 % (11.5-14.5); WHITE BLOOD COUNT 7.7 x10^3/uL (4.0-11.0)
[2019-05-26 17:15] LABS: PROTHROMBIN TIME PATIENT 31.9 SEC (11.7-14.0)
[2019-05-26 17:17] LABS: CALCIUM 8.7 mg/dL (8.5-10.1); CREATININE 1.7 mg/dL (0.7-1.3); GFR 40.8; POTASSIUM 4.2 mmol/L (3.5-5.1)
[2019-05-26 17:22] LABS: TOTAL PROTEIN 9.2 g/dL (6.4-8.2)
[2019-05-26 17:23] LABS: ALBUMIN/GLOBULIN RATIO 0.8 (1.0-1.7); MAGNESIUM 2.1 mg/dL (1.8-2.4); TOTAL BILIRUBIN 0.7 mg/dL (0.2-1.0)
[2019-05-26 17:30] VITALS: BP 130/60
--- NOTE | 2019-05-26 17:31 | RAD ---
Exam: CT head INDICATION: Weakness TECHNIQUE: Sequential axial images through the head were obtained without the administration of IV contrast. Comparisons: 09/01/2018 FINDINGS: No focal parenchymal lesion or hemorrhage is identified. There is no midline shift or sulcal effacement. Stable generalized atrophy with prominent extra-axial CSF spaces are noted. Patchy hypodensities in the periventricular and deep white matter which are similar when compared to the prior exam. No acute vascular territory infarction is identified. Robles-white distinction is preserved. The ventricular system is within normal limits without compression hydrocephalus. The basal cisterns are well maintained. The visualized portions of the paranasal sinuses and mastoid air cells are well-pneumatized. No acute fractures. There is hyperdense material within the right globe. IMPRESSION: 1. Chronic ischemic change without acute intracranial abnormality. 2. Hyperdense material within the right globe which is nonspecific. Correlate with physical exam. Exposure: One or more of the following in the visualized dose reduction techniques were utilized for this examination: 1. Automated exposure control 2. Adjustment of the MA and/or KV according to patient size Use of iterative of reconstructive technique Electronically signed by: Rosy Bobby MD (05/26/2019 5:28 PM) [id number]
--- NOTE | 2019-05-26 18:06 | RAD ---
Exam: Chest one view INDICATION: Weakness TECHNIQUE: Frontal view of the chest Comparisons: 09/01/2018 FINDINGS: Pacer with leads terminating the right atrium, ventricle and coronary sinus. Heart is mildly enlarged. Pulmonary vessels are within normal limits. The lung and pleural spaces are clear. IMPRESSION: No acute pulmonary process. Electronically signed by: Rosy Bobby MD (05/26/2019 6:03 PM) [facility]
[2019-05-26] MEDS ORDERED: HYDR-3164 PO (18:12)
--- NOTE | 2019-05-27 05:14 | EKG ---
[facility] [address] [place] [address] Test Date: 2019-05-26 Test Time: 16:36:54 Pat Name: TAMICA RAMIREZ Department: Room: Gender: M [employer] Manager: : [id number] Requested By: ORA GOODWIN Order Number: [id number] Reading MD: Zhang Magaña MD Measurements Intervals Manning Rate: 63 P: -166 KS: 188 QRS: -149 QRSD: 188 T: 27 QT: 532 QTc: 548 Interpretive Statements A-V PACED Electronically Signed On 05-27-2019 15:00:53 CUT OFF SAWYER LOG by Zhang Magaña MD
== END 2019-05-26 18:35 | disposition home or self-care (01) ==
LOC: ER 16:18
DX: H05.231 Hemorrhage of right orbit (principal); R51 Headache; R53.1 Weakness; I48.91 Unspecified atrial fibrillation; I11.0 Hypertensive heart disease with heart failure; I50.9 Heart failure, unspecified; E11.9 Type 2 diabetes mellitus without complications; I25.2 Old myocardial infarction; Z98.890 Other specified postprocedural states; Z79.01 Long term (current) use of anticoagulants
CPT/HCPCS: 36415; 70450; 71045; 80053; 83735; 83880; 84439; 84443; 84484; 85025; 85610; 93005; 96374; 99285; J2270; J7030

== ENCOUNTER 2020-07-22 19:39 | Inpatient (IN) | payer OTHER ==
[~2020-07-22] VITALS: Ht 180.3 cm; Wt 144.0 kg
[~2020-07-22 19:39] MED LIST changes: +HYDR-3164 PO
[2020-07-22 20:05] LABS: BASO % 0 % (0-3); EOS % 0 % (0-3); HEMATOCRIT 38.7 % (39.0-53.0); HEMOGLOBIN 12.6 g/dL (13.0-17.5); LYMPH % 5 % (24-48); MEAN CORPUSCULAR HEMOGLOBIN 29 pg (25-35); MEAN CORPUSCULAR HGB CONC 33 g/dL (31-37); MEAN CORPUSCULAR VOLUME 88 fL (79-100); MONO # 1.4 x10^3/uL (0.0-1.1); MONO % 7 % (0-9); NEUT # 16.9 x10^3/uL (1.8-7.7); NEUT % 87 % (31-73); PLATELET COUNT 212 x10^3/uL (140-400); RED BLOOD COUNT 4.38 x10^6/uL (4.30-5.70); RED CELL DISTRIBUTION WIDTH 14.8 % (11.5-14.5); WHITE BLOOD COUNT 19.4 x10^3/uL (4.0-11.0)
[2020-07-22 20:16] LABS: CALCIUM 8.7 mg/dL (8.5-10.1); CREATININE 2.4 mg/dL (0.7-1.3); GFR 27.3; POTASSIUM 4.1 mmol/L (3.5-5.1)
[2020-07-22 20:21] LABS: ALBUMIN 3.2 g/dL (3.4-5.0); ALBUMIN/GLOBULIN RATIO 0.7 (1.0-1.7); MAGNESIUM 1.9 mg/dL (1.8-2.4); TOTAL BILIRUBIN 1.3 mg/dL (0.2-1.0); TOTAL PROTEIN 7.8 g/dL (6.4-8.2)
--- NOTE | 2020-07-22 20:31 | RAD ---
Single view chest dated 07/22/2020. Comparison made to 05/26/2019. CLINICAL INDICATION: Weakness. FINDINGS: Single upright portable exam performed. Heart size upper limits of normal, stable. There is a 3 lead left-sided pacer/AICD in place, unchanged. Patchy perihilar airspace disease, right greater than left , new from prior study. No definite pleural effusion. No pneumothorax. IMPRESSION: Perihilar airspace disease, suspicious for pneumonia. Covid 19 pneumonitis not excluded. Electronically signed by: Heriberto Chin MD (07/22/2020 8:29 PM) [id number]
--- NOTE | 2020-07-22 20:36 | RAD ---
INDICATION: Reason: weakness / Spl. Instructions: / History: COMPARISON: May 26, 2019 TECHNIQUE: Axial CT images obtained through the head without intravenous contrast. One or more of the following individualized dose reduction techniques were utilized for this examinat ion: 1. Automated exposure control; 2. Adjustment of the mA and/or kV according to patient size; 3 . Use of iterative reconstruction technique. FINDINGS: No intracranial hemorrhage. No midline shift. Basal cisterns patents. Ventricles and sulci are globally prominent. No acute osseous abnormality. Repeat demonstration of deformity of the right orbit with high density within. There is also some muc osal thickening of paranasal sinuses. Scattered foci of low attenuation within the white matter. IMPRESSION: 1. No acute intracranial hemorrhage. There is repeat demonstration of prominence of the subdural sp liang bilaterally which could be from chronic subdural hygroma. 2. Scattered regions of low attenuation within the white matter. Non-specific in nature but frequen tly secondary to chronic small vessel ischemic disease. 3. Prominence of ventricles and sulci which is frequently secondary to age related volume loss. Electronically signed by: Yo Kenyon MD (07/22/2020 8:34 PM) [id number]
--- NOTE | 2020-07-22 20:41 | PHYS DOC ---
Past Medical History Past Medical History: A-Fib, CHF, Diabetes-Type II, Hypertension, SD Additional Past Medical Histor: R. EYE BLIND, [place] Past Surgical History: No Surgical History Additional Past Surgical Histo: R eye Smoking Status: Never Smoker Alcohol Use: None Drug Use: None General Adult EDM: Chief Complaint: WEAKNESS/GENERALIZED HPI: HPI: Patient is a 64 year old male with history of diabetes type 2, hypertension, A. fib, CHF, right eye blindness, very poor historian, who presents to the ED today complaining of weakness for 3 days. Patient is Chukese speaking. He can speak some Lao. Patient denies any chest pain or shortness of breath. Denies any fever. Review of Systems: Review of Systems: Constitutional: Reports generalized weakness for 3 days. Denies fever or chills. [] Eyes: Denies change in visual acuity. [] HENT: Denies nasal congestion or sore throat. [] Respiratory: Denies cough or shortness of breath. [] Cardiovascular: Denies chest pain or edema. [] GI: Denies abdominal pain, nausea, vomiting, bloody stools or diarrhea. [] : Denies dysuria. [] Musculoskeletal: Denies back pain or joint pain. [] Integument: Denies rash. [] Neurologic: Denies headache, focal weakness or sensory changes. [] Psychiatric: Denies depression or anxiety. [] Heart Score: Risk Factors: Risk Factors: DM, Current or recent (<one month) smoker, HTN, HLP, family history of CAD, obesity. Risk Scores: Score 0 - 3: 2.5% MACE over next 6 weeks - Discharge Home Score 4 - 6: 20.3% MACE over next 6 weeks - Admit for Clinical Observation Score 7 - 10: 72.7% MACE over next 6 weeks - Early Invasive Strategies Allergies: Allergies: Allergies Coded Allergies Type Severity Reaction Last Updated Verified No Known Drug Allergies 01/11/18 No Physical Exam: PE: Constitutional: Well developed, well nourished, no acute distress, non-toxic appearance. [] HENT: Normocephalic, atraumatic, bilateral external ears normal, oropharynx moist, no oral exudates, nose normal. [] Eyes: Left eye PERRLA, EOMI, conjunctiva normal, no discharge. Right pupil is dilated. Neck: Normal range of motion, no tenderness, supple, no stridor. [] Cardiovascular:Heart rate regular rhythm, no murmur [] Lungs & Thorax: Bilateral breath sounds clear to auscultation [] Abdomen: Bowel sounds normal, soft, no tenderness, no masses, no pulsatile masses. [] Skin: Warm, dry, no erythema, no rash. [] Back: No tenderness, no CVA tenderness. [] Extremities: No tenderness, no cyanosis, no clubbing, ROM intact, no edema. [] Neurologic: Alert and oriented X 3, normal motor function, normal sensory function, no focal deficits noted. [] Psychologic: Affect normal, judgement normal, mood normal. [] Current Patient Data: Labs: Laboratory Tests Test 07/22/20 19:50 White Blood Count 19.4 x10^3/uL (4.0-11.0) H Red Blood Count 4.38 x10^6/uL (4.30-5.70) Hemoglobin 12.6 g/dL (13.0-17.5) L Hematocrit 38.7 % (39.0-53.0) L Mean Corpuscular Volume 88 fL (79-100) Mean Corpuscular Hemoglobin 29 pg (25-35) Mean Corpuscular Hemoglobin Concent 33 g/dL (31-37) Red Cell Distribution Width 14.8 % (11.5-14.5) H Platelet Count 212 x10^3/uL (140-400) Neutrophils (%) (Auto) 87 % (31-73) H Lymphocytes (%) (Auto) 5 % (24-48) L Monocytes (%) (Auto) 7 % (0-9) Eosinophils (%) (Auto) 0 % (0-3) Basophils (%) (Auto) 0 % (0-3) Neutrophils # (Auto) 16.9 x10^3/uL (1.8-7.7) H Lymphocytes # (Auto) 1.0 x10^3/uL (1.0-4.8) Monocytes # (Auto) 1.4 x10^3/uL (0.0-1.1) H Eosinophils # (Auto) 0.0 x10^3/uL (0.0-0.7) Basophils # (Auto) 0.0 x10^3/uL (0.0-0.2) Platelet Estimate Pending Sodium Level 132 mmol/L (136-145) L Potassium Level 4.1 mmol/L (3.5-5.1) Chloride Level 98 mmol/L (98-107) Carbon Dioxide Level 26 mmol/L (21-32) Anion Gap 8 (6-14) Blood Urea Nitrogen 28 mg/dL (8-26) H Creatinine 2.4 mg/dL (0.7-1.3) H Estimated GFR (Cockcroft-Gault) 27.3 BUN/Creatinine Ratio 12 (6-20) Glucose Level 105 mg/dL (70-99) H Calcium Level 8.7 mg/dL (8.5-10.1) Magnesium Level 1.9 mg/dL (1.8-2.4) Total Bilirubin 1.3 mg/dL (0.2-1.0) H Aspartate Amino Transferase (AST) 28 U/L (15-37) Alanine Aminotransferase (ALT) 25 U/L (16-63) Alkaline Phosphatase 59 U/L (46-116) Troponin I Quantitative < 0.017 ng/mL (0.000-0.055) IE-Kvd-I-Type Natriuretic Peptide 1918 pg/mL (0-124) H Total Protein 7.8 g/dL (6.4-8.2) Albumin 3.2 g/dL (3.4-5.0) L Albumin/Globulin Ratio 0.7 (1.0-1.7) L Thyroid Stimulating Hormone (TSH) 4.001 uIU/mL (0.358-3.74) H Laboratory Tests 07/22/20 19:50 Laboratory Tests 07/22/20 19:50 EKG: EKG: [] Radiology/Procedures: Radiology/Procedures: []PROCEDURE: CT HEAD WO CONTRAST INDICATION: Reason: weakness / Spl. Instructions: / History: COMPARISON: May 26, 2019 TECHNIQUE: Axial CT images obtained through the head without intravenous contrast. One or more of the following individualized dose reduction techniques were utilized for this examination: 1. Automated exposure control; 2. Adjustment of the mA and/or kV according to patient size; 3. Use of iterative reconstruction technique. FINDINGS: No intracranial hemorrhage. No midline shift. Basal cisterns patents. Ventricles and sulci are globally prominent. No acute osseous abnormality. Repeat demonstration of deformity of the right orbit with high density within. There is also some mucosal thickening of paranasal sinuses. Scattered foci of low attenuation within the white matter. IMPRESSION: 1. No acute intracranial hemorrhage. There is repeat demonstration of prominence of the subdural space bilaterally which could be from chronic subdural hygroma. 2. Scattered regions of low attenuation within the white matter. Non-specific in nature but frequently secondary to chronic small vessel ischemic disease. 3. Prominence of ventricles and sulci which is frequently secondary to age rela rabia volume loss. Electronically signed by: Víctor Esposito MD (07/22/2020 8:34 PM) [id number] DICTATED and SIGNED BY: VÍCTOR ESPOSITO MD DATE: 07/22/[id number] 0 PROCEDURE: PORTABLE CHEST 1V Single view chest dated 07/22/2020. Comparison made to 05/26/2019. CLINICAL INDICATION: Weakness. FINDINGS: Single upright portable exam performed. Heart size upper limits of normal, stable. There is a 3 lead left-sided pacer/AICD in place, unchanged. Patchy perihilar airspace disease, right greater than left, new from prior study. No definite pleural effusion. No pneumothorax. IMPRESSION: Perihilar airspace disease, suspicious for pneumonia. Covid 19 pneumonitis not excluded. Electronically signed by: Heriberto Chin MD (07/22/2020 8:29 PM) [id number] DICTATED and SIGNED BY: HERIBERTO CHIN MD DATE: 07/22/[id number] 0 Course & Med Decision Making: Course & Med Decision Making Pertinent Labs and Imaging studies reviewed. (See chart for details) This is a 64-year-old male presenting to the ED today complaining of generalized weakness for 3 days. Patient is a very poor historian. Vitals on arrival temperature is 98.6 heart rate 65 respiration 22 blood pressure 112/62 O2 sats 93% on room air. CT of the head is negative for any acute findings. CBC with a WBC of 19.4, with a left shift and significant bandemia of 44, hemoglobin 12.6 hematocrit 38.7, creatinine 2.4, BUN 28, patient has history of chronic kidney disease though this creatinine numbers higher than his baseline. Lactic is normal. Procalcitonin 3.96 Chest x-ray could not rule out bilateral pneumonia. COVID-19 test pending Patient was given IV fluids and antibiotics per sepsis protocol. He also got Decadron to cover him for Covid symptoms Spoke with Dr. Urbina who accepted patient for admission BP was running low in the 80s/50s Dr. Urbina requested we give Albumin if BP is still low and consider central line. Dr. Ramon guerra. Yoel Disclaimer: Yoel Disclaimer: This electronic medical record was generated, in whole or in part, using a voice recognition dictation system. Date and Time of Reassessment Date: Jul 22, 2020 Time: 21:30 Fluid Challenge Is the fluid challenge complet: No IBW Target Volume Used: Yes BMI > 30: Yes Vital Signs Vital Signs: Vital Signs Date Time Temp Pulse Resp B/P (MAP) Pulse Ox O2 Delivery O2 Flow Rate FiO2 07/22/20 20:02 59 20 93 07/22/20 19:40 98.6 112/62 (79) Room Air 98.6 Temperature Source: Oral Respirations Respiratory Effort: Normal Respiratory Pattern: Normal Cardiovascular Pulse Rhythm: Regular Heart: Nml rate, reg. rhythm Lung Sounds Breath Sounds: Clear Capillary Refil Capillary Refill: Lt Foot > 3 seconds Peripheral Pulse Pulse Location: Monitor Pulse Strength: Normal (2+) Pulse Assessment Method: Monitor Integumentary Skin: Warm Skin Moisture: Dry Skin Turgor: Normal Skin Color: warm Fingernail Color: WNL Departure Departure Impression: Primary Impression: Generalized weakness Additional Impressions: Sepsis Qualified Codes: A41.9 - Sepsis, unspecified organism Pneumonia of both lower lobes Qualified Codes: J18.9 - Pneumonia, unspecified organism Hypotension Qualified Codes: I95.9 - Hypotension, unspecified Person under investigation for COVID-19 Disposition: 09 ADMITTED INPT THIS HOSP Condition: STABLE Referrals: NO PCP (PCP) HELEN DEGROOT APRN Jul 22, 2020 20:41
[2020-07-22] MEDS ORDERED: IV NORMAL SALINE 1000ML BAG 1,000 ML IV ONE ×3 (20:45→23:00)
[2020-07-22] MEDS ORDERED: cefTRIAXone IV Push 1 GM VIAL. IVP ONE (20:45)
[2020-07-22] MEDS ORDERED: DEXAMETHASONE SOD PHOS 20 MG/5 ML VIAL. IV ONE (20:45)
[2020-07-22 20:51] LABS: PROTHROMBIN TIME PATIENT 37.1 SEC (11.7-14.0)
[2020-07-22] MEDS ORDERED: AZITHRMYCN 500MG IVPB FOR OMNI 250 ML IV ONE (21:00)
[2020-07-22 21:20] LABS: % BANDS 44 % (0-9); % BASOS 1 % (0-3); % LYMPHS 5 % (24-48); % METAS 1 % (0-0); % MONOS 5 % (0-10); % SEGS 44 % (35-66); PLT ESTIMATE ADEQUATE (ADEQUATE)
[2020-07-22] MEDS ORDERED: ALBUMIN HUMAN 5% 500 ML IV ONE (22:45)
[2020-07-22 22:52] LABS: BILIRUBIN,URINE NEGATIVE (NEG); CLARITY,URINE CLEAR; COLOR,URINE YELLOW; NITRITE,URINE NEGATIVE (NEG); PROTEIN,URINE NEGATIVE (NEG-TRACE)
[2020-07-22 22:57] LABS: BARBITURATES NEG (NEG); BENZODIAZEPINES NEG (NEG); CANNABINOIDS NEG (NEG); COCAINE NEG (NEG); METHADONE NEG (NEG); OPIATES NEG (NEG); PHENCYCLIDINE NEG (NEG)
[2020-07-22 22:58] LABS: AMPHETAMINE/METHAMPHETAMINE NEG (NEG); BACTERIA,URINE 0 /HPF (0-FEW); HYALINE CASTS, URINE MODERATE /HPF; RBC,URINE 0 /HPF (0-2); WBC,URINE OCC /HPF (0-4)
[2020-07-22] MEDS ORDERED: ONDANSETRON PF 4 MG/2 ML VIAL. IV PRN ×2 (23:00→23:30)
[2020-07-22] MEDS ORDERED: ACETAMINOPHEN 325 MG TABLET. PO PRN ×2 (23:00→23:30)
[2020-07-22] MEDS ORDERED: MORPHINE SULFATE 2 MG/ML VIAL. IV PRN (23:00)
[2020-07-22] MEDS ORDERED: NON FORMULARY ITEM (Insulin Glargine,Hum.rec.anlog (Lantus Solostar) 10 UNIT) SQ SCH (23:30)
[2020-07-22] MEDS ORDERED: DEXTROSE 50% 25 GM / 50ML DISP.SYRIN. IV PRN (23:30)
[2020-07-23] VITALS (12 sets, daily range): BP systolic 113–191; BP diastolic 57–88
[2020-07-23] MEDS: INSULIN GLARGINE SYRINGE. SQ SCH ×2 (01:06→21:31)
--- NOTE | 2020-07-23 01:40 | NUR ---
Patient speaks Chuukese, speaks limited Malay. Medical/ surgical history taken from chart. Does confirm blindness in right eye, and being TAZLINA. Moist cough demonstrated. VSS. No obvious SOA. Denies diarrhea, or dizziness. In airborne isolation.
[2020-07-23 02:55] LABS: BASO % 0 % (0-3); EOS % 0 % (0-3); HEMOGLOBIN 11.8 g/dL (13.0-17.5); LYMPH # 0.6 x10^3/uL (1.0-4.8); LYMPH % 2 % (24-48); MEAN CORPUSCULAR HEMOGLOBIN 29 pg (25-35); MEAN CORPUSCULAR HGB CONC 33 g/dL (31-37); MEAN CORPUSCULAR VOLUME 88 fL (79-100); MONO # 0.8 x10^3/uL (0.0-1.1); MONO % 3 % (0-9); NEUT # 22.8 x10^3/uL (1.8-7.7); NEUT % 94 % (31-73); PLATELET COUNT 197 x10^3/uL (140-400); RED BLOOD COUNT 4.07 x10^6/uL (4.30-5.70); RED CELL DISTRIBUTION WIDTH 15.2 % (11.5-14.5); WHITE BLOOD COUNT 24.2 x10^3/uL (4.0-11.0)
[2020-07-23 03:19] LABS: ALBUMIN 3.4 g/dL (3.4-5.0); ALBUMIN/GLOBULIN RATIO 0.9 (1.0-1.7); CALCIUM 8.2 mg/dL (8.5-10.1); CREATININE 2.1 mg/dL (0.7-1.3); GFR 31.9; POTASSIUM 4.6 mmol/L (3.5-5.1); TOTAL BILIRUBIN 1.5 mg/dL (0.2-1.0); TOTAL PROTEIN 7.3 g/dL (6.4-8.2)
[2020-07-23] MEDS: INSULIN LISPRO 300 UNITS/3 ML VIAL. SQ SCH ×3 (08:00→17:44)
[2020-07-23 08:28] LABS: PROTHROMBIN TIME PATIENT 37.6 SEC (11.7-14.0)
--- NOTE | 2020-07-23 08:37 | PDOC2 ---
CARDIAC CONSULT DATE OF CONSULT Date of Consult DATE: 07/23/20 TIME: 08:26 REASON FOR CONSULT Reason for Consult: CHF, Hx of EF 35% REFERRING PHYSICIAN Referring Physician: Carlitos SOURCE Source: Chart review HISTORY OF PRESENT ILLNESS HISTORY OF PRESENT ILLNESS This is a pleasant 64 yo male admitted for complains of weakness. He speaks Chuukese and presently not having SOA or chest pain. Limited detials due to language barrier. No family available. He denies any fever or chills. He has known [facility] and follows with HF clinic and was just seen on 07/06/2020. Verbalized that he takes his medications regularly. No falls or any injury recently. His home meds from HF clinic noted 07/06/2020 amiodarone (CORDARONE) 200 mg tablet Take one tablet by mouth daily. aspirin EC 81 mg tablet Take 81 mg by mouth at bedtime daily. atorvastatin (LIPITOR) 20 mg tablet Take 1 tablet by mouth once daily bumetanide (BUMEX) 1 mg tablet Take one tablet by mouth twice daily. Take additional pills as directed Indications: visible water retention diclofenac (VOLTAREN) 1 % topical gel Apply four g topically to affected area four times daily. dorzolamide-timolol (COSOPT) 2-0.5 % ophthalmic solution Apply 1 drop to right eye as directed daily. dorzolamide-timolol (PF) 2-0.5 % dpet Apply 1 drop to right eye as directed twice daily. ergocalciferol (VITAMIN D-2) 1,250 mcg (50,000 unit) capsule Take one capsule by mouth every 7 days. erythromycin (ROMYCIN) 5 mg/gram (0.5 %) ophthalmic ointment Apply one-half inch to right eye as directed twice daily. gabapentin (NEURONTIN) 300 mg capsule Take one capsule by mouth every 8 hours. insulin detemir(+) (LEVEMIR) 100 unit/mL Inject thirty Units under the skin twice daily. insulin lispro (HUMALOG KWIKPEN INSULIN) 100 unit/mL injection PEN Inject twenty four Units under the skin three times daily with meals. levothyroxine (SYNTHROID) 25 mcg tablet Take one tablet by mouth daily 30 minutes before breakfast. losartan (COZAAR) 25 mg tablet Take one tablet by mouth daily. meclizine (ANTIVERT) 25 mg tablet Take one tablet by mouth three times daily as needed. metoprolol XL (TOPROL XL) 50 mg extended release tablet Take one-half tablet by mouth daily. Indications: chronic heart failure pantoprazole DR (PROTONIX) 40 mg tablet Take one tablet by mouth daily. spironolactone (ALDACTONE) 25 mg tablet Take one-half tablet by mouth daily. Take with food. warfarin (COUMADIN) 2 mg tablet Take 1.5 tablets by mouth at bedtime daily. PAST MEDICAL HISTORY Past Medical History Cardiovascular: AFIB (a-flutter) with cardioversions, CHF, HTN, NICM, syncope. JOANA thrombus 2017 Pulmonary: pulmonary HTN CENTRAL NERVOUS SYSTEM: Other (no pertinent hx) GI: No pertinent hx Heme/Onc: Other (DVT), warfarin therapy Hepatobiliary: No pertinent hx Psych: No pertinent hx Musculoskeletal: low back pain Rheumatologic: No pertinent hx Infectious disease: No pertinent hx ENT: No pertinent hx Renal/: UTI, CKD Endocrine: Diabetes, hypothyroidism PAST SURGICAL HISTORY Past Surgical History Other (right eye surgery), [employer] ([employer]) 10/09/2018, cardiac ablation for AFIB 2018 FAMILY HISTORY Family History: Stroke SOCIAL HISTORY Smoke: No ALCOHOL: none Drugs: None Lives: with Family CURRENT MEDICATIONS CURRENT MEDICATIONS Current Medications Medications (Trade) Dose Ordered Sig/Giorgio Route PRN Reason Start Time Stop Time Status Last Admin Dose Admin Dexamethasone Sodium Phosphate (Decadron) 10 mg 1X ONCE IV 07/22/20 20:45 07/22/20 20:52 DC 07/22/20 21:02 Ceftriaxone Sodium (Rocephin) 1 gm 1X ONCE IVP 07/22/20 20:45 07/22/20 20:52 DC 07/22/20 20:45 Azithromycin 250 ml @ 250 mls/hr 1X ONCE IV 07/22/20 21:00 07/22/20 21:59 DC 07/22/20 21:03 Sodium Chloride 1,000 ml @ 1,000 mls/hr 1X ONCE IV 07/22/20 20:45 07/22/20 21:44 DC 07/22/20 21:04 Sodium Chloride 1,000 ml @ 1,000 mls/hr 1X ONCE IV 07/22/20 20:45 07/22/20 21:44 DC 07/22/20 21:04 Albumin Human 500 ml @ 125 mls/hr 1X ONCE IV 07/22/20 22:45 07/23/20 02:44 DC 07/22/20 22:57 Sodium Chloride 1,000 ml @ 125 mls/hr 1X ONCE IV 07/22/20 23:00 07/23/20 06:59 DC 07/22/20 22:58 Insulin Glargine (Lantus Syringe) 10 unit QHS SQ 07/23/20 00:00 07/23/20 01:06 ALLERGIES ALLERGIES: Coded Allergies: No Known Drug Allergies (Unverified , 01/11/18) ROS Review of System limited due to language barrier PHYSICAL EXAM General: Alert, Oriented X3, Cooperative, No acute distress HEENT: Atraumatic, Mucous membr. moist/pink Lungs: Other (diminished) Heart: Regular rate (AV pacing), Other (distant heart sounds) Abdomen: Soft, No tenderness Extremities: No cyanosis, Other (1+ bilateral LE pitting edema) Skin: No breakdown, No significant lesion Neuro: Normal speech, Sensation intact Psych/Mental Status: Mental status NL, Mood NL MUSCULOSKELETAL: Osteoarthritic changes both hands VITALS/I&O VITALS/I&O: Vital Signs Date Time Temp Pulse Resp B/P (MAP) Pulse Ox O2 Delivery O2 Flow Rate FiO2 07/23/20 06:19 60 16 125/77 (93) 98 Room Air 07/23/20 03:48 98.9 98.9 I & O 07/22/20 07/22/20 07/23/20 15:00 23:00 07:00 Intake Total 2250 ml 1779 ml Output Total 0 ml Balance 2250 ml 1779 ml LABS Lab: Laboratory Tests Test 07/22/20 19:50 07/22/20 22:42 07/23/20 02:40 White Blood Count 19.4 x10^3/uL (4.0-11.0) H 24.2 x10^3/uL (4.0-11.0) H Red Blood Count 4.38 x10^6/uL (4.30-5.70) 4.07 x10^6/uL (4.30-5.70) L Hemoglobin 12.6 g/dL (13.0-17.5) L 11.8 g/dL (13.0-17.5) L Hematocrit 38.7 % (39.0-53.0) L 36.0 % (39.0-53.0) L Mean Corpuscular Volume 88 fL (79-100) 88 fL (79-100) Mean Corpuscular Hemoglobin 29 pg (25-35) 29 pg (25-35) Mean Corpuscular Hemoglobin Concent 33 g/dL (31-37) 33 g/dL (31-37) Red Cell Distribution Width 14.8 % (11.5-14.5) H 15.2 % (11.5-14.5) H Platelet Count 212 x10^3/uL (140-400) 197 x10^3/uL (140-400) Neutrophils (%) (Auto) 87 % (31-73) H 94 % (31-73) H Lymphocytes (%) (Auto) 5 % (24-48) L 2 % (24-48) L Monocytes (%) (Auto) 7 % (0-9) 3 % (0-9) Eosinophils (%) (Auto) 0 % (0-3) 0 % (0-3) Basophils (%) (Auto) 0 % (0-3) 0 % (0-3) Neutrophils # (Auto) 16.9 x10^3/uL (1.8-7.7) H 22.8 x10^3/uL (1.8-7.7) H Lymphocytes # (Auto) 1.0 x10^3/uL (1.0-4.8) 0.6 x10^3/uL (1.0-4.8) L Monocytes # (Auto) 1.4 x10^3/uL (0.0-1.1) H 0.8 x10^3/uL (0.0-1.1) Eosinophils # (Auto) 0.0 x10^3/uL (0.0-0.7) 0.0 x10^3/uL (0.0-0.7) Basophils # (Auto) 0.0 x10^3/uL (0.0-0.2) 0.0 x10^3/uL (0.0-0.2) Segmented Neutrophils % 44 % (35-66) Band Neutrophils % 44 % (0-9) H Lymphocytes % 5 % (24-48) L Monocytes % 5 % (0-10) Basophils % 1 % (0-3) Metamyelocytes % 1 % (0-0) H Platelet Estimate Adequate (ADEQUATE) Prothrombin Time 37.1 SEC (11.7-14.0) H Prothrombin Time INR 3.7 (0.8-1.1) H Activated Partial Thromboplast Time 62 SEC (24-38) H Sodium Level 132 mmol/L (136-145) L 134 mmol/L (136-145) L Potassium Level 4.1 mmol/L (3.5-5.1) 4.6 mmol/L (3.5-5.1) Chloride Level 98 mmol/L (98-107) 99 mmol/L (98-107) Carbon Dioxide Level 26 mmol/L (21-32) 24 mmol/L (21-32) Anion Gap 8 (6-14) 11 (6-14) Blood Urea Nitrogen 28 mg/dL (8-26) H 27 mg/dL (8-26) H Creatinine 2.4 mg/dL (0.7-1.3) H 2.1 mg/dL (0.7-1.3) H Estimated GFR (Cockcroft-Gault) 27.3 31.9 BUN/Creatinine Ratio 12 (6-20) 13 (6-20) Glucose Level 105 mg/dL (70-99) H 140 mg/dL (70-99) H Lactic Acid Level 1.8 mmol/L (0.4-2.0) Calcium Level 8.7 mg/dL (8.5-10.1) 8.2 mg/dL (8.5-10.1) L Magnesium Level 1.9 mg/dL (1.8-2.4) Total Bilirubin 1.3 mg/dL (0.2-1.0) H 1.5 mg/dL (0.2-1.0) H Aspartate Amino Transferase (AST) 28 U/L (15-37) 21 U/L (15-37) Alanine Aminotransferase (ALT) 25 U/L (16-63) 22 U/L (16-63) Alkaline Phosphatase 59 U/L (46-116) 56 U/L (46-116) Troponin I Quantitative < 0.017 ng/mL (0.000-0.055) < 0.017 ng/mL (0.000-0.055) UV-Fne-K-Type Natriuretic Peptide 1918 pg/mL (0-124) H Total Protein 7.8 g/dL (6.4-8.2) 7.3 g/dL (6.4-8.2) Albumin 3.2 g/dL (3.4-5.0) L 3.4 g/dL (3.4-5.0) Albumin/Globulin Ratio 0.7 (1.0-1.7) L 0.9 (1.0-1.7) L Procalcitonin 3.96 ng/mL (0.00-0.10) H Thyroid Stimulating Hormone (TSH) 4.001 uIU/mL (0.358-3.74) H Urine Collection Type Unknown Urine Color Yellow Urine Clarity Clear Urine pH 5.0 (<5.0-8.0) Urine Specific [place] 1.015 (1.000-1.030) Urine Protein Negative mg/dL (NEG-TRACE) Urine Glucose (UA) Negative mg/dL (NEG) Urine Ketones (Stick) Negative mg/dL (NEG) Urine Blood Negative (NEG) Urine Nitrite Negative (NEG) Urine Bilirubin Negative (NEG) Urine Urobilinogen Dipstick 1.0 mg/dL (0.2 mg/dL) Urine Leukocyte Esterase Trace (NEG) Urine RBC 0 /HPF (0-2) Urine WBC Occ /HPF (0-4) Urine Squamous Epithelial Cells Few /LPF Urine Bacteria 0 /HPF (0-FEW) Urine Hyaline Casts Moderate /HPF Urine Opiates Screen Neg (NEG) Urine Methadone Screen Neg (NEG) Urine Barbiturates Neg (NEG) Urine Phencyclidine Screen Neg (NEG) Urine Amphetamine/Methamphetamine Neg (NEG) Urine Benzodiazepines Screen Neg (NEG) Urine Cocaine Screen Neg (NEG) Urine Cannabinoids Screen Neg (NEG) Urine Ethyl Alcohol Neg (NEG) Laboratory Tests 07/22/20 19:50 07/23/20 02:40 Laboratory Tests 07/22/20 19:50 07/23/20 02:40 ECHOCARDIOGRAM ECHOCARDIOGRAM 07/01/2020 [facility] The left ventricular size is normal. The left ventricular wall thickness is normal. The left ventricular systolic function is moderately reduced. The visually estimated ejection fraction is 35%. There is diffuse hypokinesis. The right ventricle is moderately dilated. The right ventricular systolic function is normal. Mitral Valve: Rheumatic mitral valve disease. Severely calcified mitral valve. Mild stenosis. (MG=5mmHg@HR=60bpm) Mild regurgitation. The estimated pulmonary artery systolic pressure is 46mmHg + right atrial pressure. Compared with study dated 11/06/18, no significant change is noted. ASSESSMENT/PLAN ASSESSMENT/PLAN 1. Pneumonia/weakness 2. PUI 3. Chronic diastolic/systolic CHF: appears compensated 4. ANTHONY on CKD3: baseline 1.6 to 1.8 5. NICM 6. HTN: controlled 7. HLP 8. PAFIB: AV paced 9. [employer]: [employer] 10. Hypothyroidism: on replacement. TSH not on goal 11. Morbid Obesity 12. Hx of DVT Recommendations 1. He follows with HF clinic. Continue bumex therapy. Hold aldactone and losartan for now 2. Antibiotics per PCP 3. Continue amiodarone for rhythm maintenance. Coumadin for stroke prevention, pharmacy to manage. INR 3.8. Continue toprol 4. May use norvasc if BP trends up 5. Secondary prevention measures ANDRES KING H[employer] SELECTOR Jul 23, 2020 08:37
[2020-07-23] MEDS: cefTRIAXone IV Push 1 GM VIAL. IVP SCH (10:07)
[2020-07-23] MEDS: DOXYCYCLINE HYCLATE 100 MG in IV DEXTROSE 5% 100ML 100 ML IV SCH ×2 (10:08→21:31)
[2020-07-23] MEDS ORDERED: amLODIPine BESYLATE 5 MG TABLET PO ONE (10:15)
[2020-07-23] MEDS: ASPIRIN ENTERIC COATED 81 MG TABLET.DR. PO SCH (10:24)
[2020-07-23] MEDS: AMIODARONE HCL 200 MG TABLET. PO SCH (10:24)
[2020-07-23] MEDS: METOPROLOL SUCC 24HR ER 50 MG TAB.ER.24H. PO SCH (10:25)
--- NOTE | 2020-07-23 10:45 | PDOC1 ---
History and Physical Date of Admission Date of Admission DATE: 07/23/20 TIME: 10:42 Identification/Chief Complaint Chief Complaint weakness Source Source: Chart review, Patient History of Present Illness History of Present Illness Mr. Barnes, is a 64 year old male admit with shortness of breath, cough, weakness, who presents to the ED today complaining of weakness for 3 days. Patient is of [place]ian decent, and speaks a dialect that is difficult to translate. He can speak some Barbadian. Patient denies any chest pain or shortness of breath. Denies any fever. Past Medical History Past Medical History with history of diabetes type 2, hypertension, A. fib, CHF, right eye blindness, hard of hearing and language barrier Cardiovascular: AFIB, CHF, HTN Pulmonary: No pertinent hx CENTRAL NERVOUS SYSTEM: Other GI: No pertinent hx Heme/Onc: Other Hepatobiliary: No pertinent hx Psych: No pertinent hx Musculoskeletal: low back pain Rheumatologic: No pertinent hx Infectious disease: No pertinent hx Renal/: No pertinent hx Endocrine: Diabetes Past Surgical History Past Surgical History: Other Family History Family History: Stroke Social History Smoke: No ALCOHOL: none Drugs: None Current Problem List Problem List Problems Medical Problems: (1) Generalized weakness Status: Acute Current Medications Current Medications Current Medications Dexamethasone Sodium Phosphate (Decadron) 10 mg 1X ONCE IV Last administered on 07/22/20at 21:02; Start 07/22/20 at 20:45; Stop 07/22/20 at 20:52; Status DC Ceftriaxone Sodium (Rocephin) 1 gm 1X ONCE IVP Last administered on 07/22/20at 20:45; Start 07/22/20 at 20:45; Stop 07/22/20 at 20:52; Status DC Azithromycin 250 ml @ 250 mls/hr 1X ONCE IV Last administered on 07/22/20at 21:03; Start 07/22/20 at 21:00; Stop 07/22/20 at 21:59; Status DC Sodium Chloride 1,000 ml @ 1,000 mls/hr 1X ONCE IV Last administered on 07/22/20at 21:04; Start 07/22/20 at 20:45; Stop 07/22/20 at 21:44; Status DC Sodium Chloride 1,000 ml @ 1,000 mls/hr 1X ONCE IV Last administered on 07/22/20at 21:04; Start 07/22/20 at 20:45; Stop 07/22/20 at 21:44; Status DC Albumin Human 500 ml @ 125 mls/hr 1X ONCE IV Last administered on 07/22/20at 22:57; Start 07/22/20 at 22:45; Stop 07/23/20 at 02:44; Status DC Ondansetron HCl (Zofran) 4 mg PRN Q8HRS PRN IV NAUSEA/VOMITING; Start 07/22/20 at 23:00; Stop 07/22/20 at 23:30; Status DC Morphine Sulfate (Morphine Sulfate) 2 mg PRN Q2HR PRN IV PAIN; Start 07/22/20 at 23:00; Stop 07/23/20 at 22:59 Acetaminophen (Tylenol) 650 mg PRN Q4HRS PRN PO FEVER > 100.3'F; Start 07/22/20 at 23:00; Stop 07/22/20 at 23:30; Status DC Sodium Chloride 1,000 ml @ 125 mls/hr 1X ONCE IV Last administered on 07/22/20at 22:58; Start 07/22/20 at 23:00; Stop 07/23/20 at 06:59; Status DC Ondansetron HCl (Zofran) 4 mg PRN Q4HRS PRN IV NAUSEA/VOMITING; Start 07/22/20 at 23:30 Acetaminophen (Tylenol) 650 mg PRN Q6HRS PRN PO FEVER > 100.3'F; Start 07/22/20 at 23:30 Non-Formulary Medication (Insulin Glargine,Hum.rec.anlog (Lantus Solostar)) 10 unit QHS SQ ; Start 07/22/20 at 23:30; Status UNV Warfarin Sodium (Coumadin Per Pharmacy) 1 each PRN DAILY PRN MC SEE COMMENTS; Start 07/22/20 at 23:30 Insulin Human Lispro (HumaLOG) 0-7 UNITS TIDWMEALS SQ ; Start 07/23/20 at 08:00 Dextrose (Dextrose 50%-Water Syringe) 12.5 gm PRN Q15MIN PRN IV SEE COMMENTS; Start 07/22/20 at 23:30 Ceftriaxone Sodium (Rocephin) 1 gm DAILY IVP Last administered on 07/23/20at 10:07; Start 07/23/20 at 09:00 Doxycycline Hyclate 100 mg/ Dextrose 100 ml @ 50 mls/hr BID IV Last administered on 07/23/20at 10:08; Start 07/23/20 at 09:00 Insulin Glargine (Lantus Syringe) 10 unit QHS SQ Last administered on 07/23/20at 01:06; Start 07/23/20 at 00:00 Aspirin (Ecotrin) 81 mg DAILYWBKFT PO Last administered on 07/23/20at 10:24; Start 07/23/20 at 10:30 Atorvastatin Calcium (Lipitor) 20 mg QHS PO ; Start 07/23/20 at 21:00 Amiodarone HCl (Cordarone) 200 mg DAILY PO Last administered on 07/23/20at 10:24; Start 07/23/20 at 10:30 Warfarin Sodium (Coumadin Per Pharmacy) 1 each PRN DAILY PRN MC SEE COMMENTS; Start 07/23/20 at 10:15; Stop 07/23/20 at 10:16; Status DC Metoprolol Succinate (Toprol Xl) 50 mg DAILY PO Last administered on 07/23/20at 10:25; Start 07/23/20 at 10:30 Bumetanide (Bumex) 1 mg BID94 PO ; Start 07/23/20 at 16:00 Amlodipine Besylate (Norvasc) 5 mg 1X ONCE PO Last administered on 07/23/20at 10:24; Start 07/23/20 at 10:15; Stop 07/23/20 at 10:18; Status DC Active Scripts Active [place] 5-325 Tablet (Acetaminophen/Hydrocodone Bitart) 1 Each Tablet 1 Tab PO Q4- 6HRS Erythromycin (Erythromycin Base) 1 Gm Oint...g. 0.25 Inch OP QID 5 Days Reported Alphagan P (Brimonidine Tartrate) 5 Ml Drops 1 Drop RIGHTEYE TID Timoptic 0.5% (Timolol Maleate) 10 Ml Drops 1 Drop RIGHTEYE TID Prednisolone Acetate 5 Ml Drops.susp 1 Drop RIGHTEYE QID Atropine Sulfate 2 Ml Drops 1 Drop RIGHTEYE BID Lantus Solostar (Insulin Glargine,Hum.rec.anlog) 100 Unit/1 Ml Insuln.pen 58 Unit SQ QHS Novolog Flexpen (Insulin Aspart) 100 Unit/1 Ml Insuln.pen 28 Unit SQ TIDWMEALS Spironolactone 25 Mg Tablet 1 Tab PO DAILY Carvedilol (Carvedilol) 12.5 Mg Tablet 18.75 Mg PO BIDWMEALS Losartan Potassium 50 Mg Tablet 50 Mg PO DAILY Warfarin Sodium 2.5 Mg Tablet 2.5 Mg PO QMTH Warfarin Sodium 5 Mg Tablet 5 Mg PO QTUTHSASU Gabapentin 600 Mg Tablet 600 Mg PO QHS Gabapentin (Gabapentin) 300 Mg Capsule 300 Mg PO BIDWMEALS Allergies Allergies: Coded Allergies: No Known Drug Allergies (Unverified , 01/11/18) ROS General: No: Chills, Night Sweats, Fatigue, Malaise, Appetite, Other PSYCHOLOGICAL ROS: No: Anxiety, Behavioral Disorder, Concentration difficultie, Decreased libido, Depression, Disorientation, Hallucinations, Hostility, Irritablity, Memory difficulties, Mood Swings, Obsessive thoughts, Physical abuse, Sexual abuse, Sleep disturbances, Suicidal ideation, Other Eyes: No Blurry vision, No Decreased vision, No Double vision, No Dry eyes, No Excessive tearing, No Eye Pain, No Itchy Eyes, No Loss of vision, No Photo phobia, No Scotomata, No Uses contacts, No Uses glasses, No Other Respiratory: YES: Cough, SOB with excertion; No: Hemoptysis, Orthopnea, Pleuritic Pain, Shortness of breath, Sputum Changes, Stridor, Tachypnea, Wheezing, Other Cardiovascular: No Chest Pain, No Palpitations, No Orthopnea, No Paroxysmal Noc. Dyspnea, No Edema, No Lt Headedness, No Other Gastrointestinal: Yes Nausea; No Vomiting, No Abdominal Pain, No Diarrhea, No Constipation, No Melena, No Hematochezia, No Other Genitourinary: No Dysuria, No Frequency, No Incontinence, No Hematuria, No Retention, No Discharge, No Urgency, No Pain, No Flank Pain, No Other, No , No , No , No , No , No , No Musculoskeletal: No Gait Disturbance, No Joint Pain, No Joint Stiffness, No Joint Swelling, No Muscle Pain, No Muscular Weakness, No Pain In:, No Swelling In:, No Other Neurological: No Behavorial Changes, No Bowel/Bladder ControlChng, No Confusion, No Dizziness, No Gait Disturbance, No Headaches, No Impaired Coord/balance, No Memory Loss, No Numbness/Tingling, No Seizures, No Speech Problems, No Tremors, No Visual Changes, No Weakness, No Other Skin: No Dry Skin, No Eczema, No Hair Changes, No Lumps, No Mole Changes, No Mottling, No Nail Changes, No Pruritus, No Rash, No Skin Lesion Changes, No Other, No Acne Physical Exam Physical Exam hard of hearing, language barrier General: Alert, Cooperative, No acute distress HEENT: Atraumatic, PERRLA Extremities: No cyanosis, No edema, Normal pulses Skin: No rashes Neuro: Normal speech, Sensation intact Psych/Mental Status: Mental status NL, Mood NL Vitals Vitals Vital Signs Date Time Temp Pulse Resp B/P (MAP) Pulse Ox O2 Delivery O2 Flow Rate FiO2 07/23/20 10:25 79 174/80 07/23/20 09:00 17 97 Room Air 07/23/20 08:00 99.2 99.2 Labs Labs Laboratory Tests Test 07/22/20 19:50 07/22/20 22:42 07/23/20 02:40 07/23/20 07:40 White Blood Count 19.4 x10^3/uL (4.0-11.0) 24.2 x10^3/uL (4.0-11.0) Red Blood Count 4.38 x10^6/uL (4.30-5.70) 4.07 x10^6/uL (4.30-5.70) Hemoglobin 12.6 g/dL (13.0-17.5) 11.8 g/dL (13.0-17.5) Hematocrit 38.7 % (39.0-53.0) 36.0 % (39.0-53.0) Mean Corpuscular Volume 88 fL (79-100) 88 fL (79-100) Mean Corpuscular Hemoglobin 29 pg (25-35) 29 pg (25-35) Mean Corpuscular Hemoglobin Concent 33 g/dL (31-37) 33 g/dL (31-37) Red Cell Distribution Width 14.8 % (11.5-14.5) 15.2 % (11.5-14.5) Platelet Count 212 x10^3/uL (140-400) 197 x10^3/uL (140-400) Neutrophils (%) (Auto) 87 % (31-73) 94 % (31-73) Lymphocytes (%) (Auto) 5 % (24-48) 2 % (24-48) Monocytes (%) (Auto) 7 % (0-9) 3 % (0-9) Eosinophils (%) (Auto) 0 % (0-3) 0 % (0-3) Basophils (%) (Auto) 0 % (0-3) 0 % (0-3) Neutrophils # (Auto) 16.9 x10^3/uL (1.8-7.7) 22.8 x10^3/uL (1.8-7.7) Lymphocytes # (Auto) 1.0 x10^3/uL (1.0-4.8) 0.6 x10^3/uL (1.0-4.8) Monocytes # (Auto) 1.4 x10^3/uL (0.0-1.1) 0.8 x10^3/uL (0.0-1.1) Eosinophils # (Auto) 0.0 x10^3/uL (0.0-0.7) 0.0 x10^3/uL (0.0-0.7) Basophils # (Auto) 0.0 x10^3/uL (0.0-0.2) 0.0 x10^3/uL (0.0-0.2) Segmented Neutrophils % 44 % (35-66) Band Neutrophils % 44 % (0-9) Lymphocytes % 5 % (24-48) Monocytes % 5 % (0-10) Basophils % 1 % (0-3) Metamyelocytes % 1 % (0-0) Platelet Estimate Adequate (ADEQUATE) Prothrombin Time 37.1 SEC (11.7-14.0) 37.6 SEC (11.7-14.0) Prothromb Time International Ratio 3.7 (0.8-1.1) 3.8 (0.8-1.1) Activated Partial Thromboplast Time 62 SEC (24-38) Sodium Level 132 mmol/L (136-145) 134 mmol/L (136-145) Potassium Level 4.1 mmol/L (3.5-5.1) 4.6 mmol/L (3.5-5.1) Chloride Level 98 mmol/L (98-107) 99 mmol/L (98-107) Carbon Dioxide Level 26 mmol/L (21-32) 24 mmol/L (21-32) Anion Gap 8 (6-14) 11 (6-14) Blood Urea Nitrogen 28 mg/dL (8-26) 27 mg/dL (8-26) Creatinine 2.4 mg/dL (0.7-1.3) 2.1 mg/dL (0.7-1.3) Estimated GFR (Cockcroft-Gault) 27.3 31.9 BUN/Creatinine Ratio 12 (6-20) 13 (6-20) Glucose Level 105 mg/dL (70-99) 140 mg/dL (70-99) Lactic Acid Level 1.8 mmol/L (0.4-2.0) Calcium Level 8.7 mg/dL (8.5-10.1) 8.2 mg/dL (8.5-10.1) Magnesium Level 1.9 mg/dL (1.8-2.4) Total Bilirubin 1.3 mg/dL (0.2-1.0) 1.5 mg/dL (0.2-1.0) Aspartate Amino Transf (AST/SGOT) 28 U/L (15-37) 21 U/L (15-37) Alanine Aminotransferase (ALT/SGPT) 25 U/L (16-63) 22 U/L (16-63) Alkaline Phosphatase 59 U/L (46-116) 56 U/L (46-116) Troponin I Quantitative < 0.017 ng/mL (0.000-0.055) < 0.017 ng/mL (0.000-0.055) AD-Wkf-B-Type Natriuretic Peptide 1918 pg/mL (0-124) Total Protein 7.8 g/dL (6.4-8.2) 7.3 g/dL (6.4-8.2) Albumin 3.2 g/dL (3.4-5.0) 3.4 g/dL (3.4-5.0) Albumin/Globulin Ratio 0.7 (1.0-1.7) 0.9 (1.0-1.7) Procalcitonin 3.96 ng/mL (0.00-0.10) Thyroid Stimulating Hormone (TSH) 4.001 uIU/mL (0.358-3.74) Urine Collection Type Unknown Urine Color Yellow Urine Clarity Clear Urine pH 5.0 (<5.0-8.0) Urine Specific [place] 1.015 (1.000-1.030) Urine Protein Negative mg/dL (NEG-TRACE) Urine Glucose (UA) Negative mg/dL (NEG) Urine Ketones (Stick) Negative mg/dL (NEG) Urine Blood Negative (NEG) Urine Nitrite Negative (NEG) Urine Bilirubin Negative (NEG) Urine Urobilinogen Dipstick 1.0 mg/dL (0.2 mg/dL) Urine Leukocyte Esterase Trace (NEG) Urine RBC 0 /HPF (0-2) Urine WBC Occ /HPF (0-4) Urine Squamous Epithelial Cells Few /LPF Urine Bacteria 0 /HPF (0-FEW) Urine Hyaline Casts Moderate /HPF Urine Opiates Screen Neg (NEG) Urine Methadone Screen Neg (NEG) Urine Barbiturates Neg (NEG) Urine Phencyclidine Screen Neg (NEG) Urine Amphetamine/Methamphetamine Neg (NEG) Urine Benzodiazepines Screen Neg (NEG) Urine Cocaine Screen Neg (NEG) Urine Cannabinoids Screen Neg (NEG) Urine Ethyl Alcohol Neg (NEG) Test 07/23/20 08:12 Glucose (Fingerstick) 195 mg/dL (70-99) Laboratory Tests Test 07/22/20 19:50 07/22/20 22:42 07/23/20 02:40 07/23/20 07:40 White Blood Count 19.4 x10^3/uL (4.0-11.0) 24.2 x10^3/uL (4.0-11.0) Red Blood Count 4.38 x10^6/uL (4.30-5.70) 4.07 x10^6/uL (4.30-5.70) Hemoglobin 12.6 g/dL (13.0-17.5) 11.8 g/dL (13.0-17.5) Hematocrit 38.7 % (39.0-53.0) 36.0 % (39.0-53.0) Mean Corpuscular Volume 88 fL (79-100) 88 fL (79-100) Mean Corpuscular Hemoglobin 29 pg (25-35) 29 pg (25-35) Mean Corpuscular Hemoglobin Concent 33 g/dL (31-37) 33 g/dL (31-37) Red Cell Distribution Width 14.8 % (11.5-14.5) 15.2 % (11.5-14.5) Platelet Count 212 x10^3/uL (140-400) 197 x10^3/uL (140-400) Neutrophils (%) (Auto) 87 % (31-73) 94 % (31-73) Lymphocytes (%) (Auto) 5 % (24-48) 2 % (24-48) Monocytes (%) (Auto) 7 % (0-9) 3 % (0-9) Eosinophils (%) (Auto) 0 % (0-3) 0 % (0-3) Basophils (%) (Auto) 0 % (0-3) 0 % (0-3) Neutrophils # (Auto) 16.9 x10^3/uL (1.8-7.7) 22.8 x10^3/uL (1.8-7.7) Lymphocytes # (Auto) 1.0 x10^3/uL (1.0-4.8) 0.6 x10^3/uL (1.0-4.8) Monocytes # (Auto) 1.4 x10^3/uL (0.0-1.1) 0.8 x10^3/uL (0.0-1.1) Eosinophils # (Auto) 0.0 x10^3/uL (0.0-0.7) 0.0 x10^3/uL (0.0-0.7) Basophils # (Auto) 0.0 x10^3/uL (0.0-0.2) 0.0 x10^3/uL (0.0-0.2) Segmented Neutrophils % 44 % (35-66) Band Neutrophils % 44 % (0-9) Lymphocytes % 5 % (24-48) Monocytes % 5 % (0-10) Basophils % 1 % (0-3) Metamyelocytes % 1 % (0-0) Platelet Estimate Adequate (ADEQUATE) Prothrombin Time 37.1 SEC (11.7-14.0) 37.6 SEC (11.7-14.0) Prothromb Time International Ratio 3.7 (0.8-1.1) 3.8 (0.8-1.1) Activated Partial Thromboplast Time 62 SEC (24-38) Sodium Level 132 mmol/L (136-145) 134 mmol/L (136-145) Potassium Level 4.1 mmol/L (3.5-5.1) 4.6 mmol/L (3.5-5.1) Chloride Level 98 mmol/L (98-107) 99 mmol/L (98-107) Carbon Dioxide Level 26 mmol/L (21-32) 24 mmol/L (21-32) Anion Gap 8 (6-14) 11 (6-14) Blood Urea Nitrogen 28 mg/dL (8-26) 27 mg/dL (8-26) Creatinine 2.4 mg/dL (0.7-1.3) 2.1 mg/dL (0.7-1.3) Estimated GFR (Cockcroft-Gault) 27.3 31.9 BUN/Creatinine Ratio 12 (6-20) 13 (6-20) Glucose Level 105 mg/dL (70-99) 140 mg/dL (70-99) Lactic Acid Level 1.8 mmol/L (0.4-2.0) Calcium Level 8.7 mg/dL (8.5-10.1) 8.2 mg/dL (8.5-10.1) Magnesium Level 1.9 mg/dL (1.8-2.4) Total Bilirubin 1.3 mg/dL (0.2-1.0) 1.5 mg/dL (0.2-1.0) Aspartate Amino Transf (AST/SGOT) 28 U/L (15-37) 21 U/L (15-37) Alanine Aminotransferase (ALT/SGPT) 25 U/L (16-63) 22 U/L (16-63) Alkaline Phosphatase 59 U/L (46-116) 56 U/L (46-116) Troponin I Quantitative < 0.017 ng/mL (0.000-0.055) < 0.017 ng/mL (0.000-0.055) YS-Xjv-X-Type Natriuretic Peptide 1918 pg/mL (0-124) Total Protein 7.8 g/dL (6.4-8.2) 7.3 g/dL (6.4-8.2) Albumin 3.2 g/dL (3.4-5.0) 3.4 g/dL (3.4-5.0) Albumin/Globulin Ratio 0.7 (1.0-1.7) 0.9 (1.0-1.7) Procalcitonin 3.96 ng/mL (0.00-0.10) Thyroid Stimulating Hormone (TSH) 4.001 uIU/mL (0.358-3.74) Urine Collection Type Unknown Urine Color Yellow Urine Clarity Clear Urine pH 5.0 (<5.0-8.0) Urine Specific [place] 1.015 (1.000-1.030) Urine Protein Negative mg/dL (NEG-TRACE) Urine Glucose (UA) Negative mg/dL (NEG) Urine Ketones (Stick) Negative mg/dL (NEG) Urine Blood Negative (NEG) Urine Nitrite Negative (NEG) Urine Bilirubin Negative (NEG) Urine Urobilinogen Dipstick 1.0 mg/dL (0.2 mg/dL) Urine Leukocyte Esterase Trace (NEG) Urine RBC 0 /HPF (0-2) Urine WBC Occ /HPF (0-4) Urine Squamous Epithelial Cells Few /LPF Urine Bacteria 0 /HPF (0-FEW) Urine Hyaline Casts Moderate /HPF Urine Opiates Screen Neg (NEG) Urine Methadone Screen Neg (NEG) Urine Barbiturates Neg (NEG) Urine Phencyclidine Screen Neg (NEG) Urine Amphetamine/Methamphetamine Neg (NEG) Urine Benzodiazepines Screen Neg (NEG) Urine Cocaine Screen Neg (NEG) Urine Cannabinoids Screen Neg (NEG) Urine Ethyl Alcohol Neg (NEG) Test 07/23/20 08:12 Glucose (Fingerstick) 195 mg/dL (70-99) VTE Prophylaxis Ordered VTE Prophylaxis Devices: No VTE Pharmacological Prophylaxi: Yes Assessment/Plan Assessment/Plan 1. acute hypoxia with sepsis admit for r/o Coronavirus, PUI 2. acute on Chronic combined CHF: CV sonsult, appreciate, cont diuretic therapy despite sepsis above, 3. Afib, - on amio, continue 4. Obese, BMI 45 Justifications for Admission Other Justification DORON KAY MD Jul 23, 2020 10:45
--- NOTE | 2020-07-23 11:17 | NUR ---
Pt transferred to room 246 by wheelchair at approx 1115. This RN called raymundo Colin's daughter at [phone] to notify of transfer.
--- NOTE | 2020-07-23 13:29 | NUR ---
SS following for discharge planning. SS reviewed pt chart and discussed with pt RN. Pt is from home with spouse and is currently on room air. COVID19 test pending. Pt on IV Rocephin and IV Doxycycline. Pt transferred to room 246. SS will continue to follow for discharge planning.
--- NOTE | 2020-07-23 13:55 | RAD ---
Single view of the chest. 07/23/2020 10:32 AM Indication: Reason: CHF / Spl. Instructions: / History: Comparison: Chest radiograph July 02, 2020 Findings: Redemonstration of right perihilar/basilar infiltrate, similar to comparison study. No pneu mothorax or pleural effusion is seen. Heart remains enlarged multilead pacemaking/ICD device in place . No acute osseous changes are identified. IMPRESSION: Persistent right perihilar/basilar infiltrate, similar to prior exam. Electronically signed by: Wang Salomon MD (07/23/2020 1:53 PM) [id number]
[2020-07-23] MEDS ORDERED: ERGO500027 PO (14:11)
[2020-07-23] MEDS ORDERED: ATOR20TA58 PO (14:11)
[2020-07-23] MEDS ORDERED: INSU100V13 SQ (14:11)
[2020-07-23] MEDS ORDERED: MECL-75 PO (14:11)
[2020-07-23] MEDS ORDERED: DORZ1DRO7 OD (14:11)
[2020-07-23] MEDS ORDERED: INSU100V6 SQ (14:11)
[2020-07-23] MEDS ORDERED: LEVO25TA4 PO (14:11)
[2020-07-23] MEDS ORDERED: DORZ10DR21 OD (14:11)
[2020-07-23] MEDS ORDERED: WARF3TAB50 PO (14:11)
[2020-07-23] MEDS ORDERED: ASPI-630 PO (14:11)
[2020-07-23] MEDS ORDERED: PANT40TA77 PO (14:11)
[2020-07-23] MEDS ORDERED: GABA300C18 PO (14:11)
[2020-07-23] MEDS ORDERED: BUME1TAB3 PO (14:11)
[2020-07-23] MEDS ORDERED: AMIO200T6 PO (14:11)
[2020-07-23] MEDS ORDERED: DICL100G54 TP (14:11)
[2020-07-23] MEDS ORDERED: METO-239 PO (14:11)
--- NOTE | 2020-07-23 15:22 | NUR ---
Pharmacy Warfarin Dosing Note S:Pharmacy consulted to assist with anticoagulation therapy started with target INR: 2 -3 O:TAMICA RAMIREZ is a 64 year old M with Atrial Fibrillation LABS: Last INR: 3.8 Last HGB: 11.8 Last HCT: 36 Last PLT: 197 Last dose of Hold given on at Previous Regimen: Vitamin K given: Drug Interaction Changes: Ongoing Drug Interactions: A:INR of 3.8 is above desired range. Target range for this patient is: 2 -3 P: Warfarin dose: Hold Today at 1600 Bridge Therapy: Next INR due TOMORROW Pharmacy anticoagulation service will continue to follow. KINDRA MCMANUS [facility], 07/23/20 0217
[2020-07-23] MEDS: BUMETANIDE 1 MG TABLET. PO SCH (15:46)
[2020-07-23] MEDS: ATORVASTATIN CALCIUM 20 MG TABLET PO SCH (21:31)
[2020-07-24 04:59] VITALS: BP 209/90
[2020-07-24 07:00] VITALS: BP 162/80
[2020-07-24] MEDS: ASPIRIN ENTERIC COATED 81 MG TABLET.DR. PO SCH (08:33)
[2020-07-24] MEDS: guaiFENesin DM 200MG/20MG 10 ML SYRUP PO PRN ×2 (08:33→23:38)
[2020-07-24] MEDS: AMIODARONE HCL 200 MG TABLET. PO SCH (08:34)
[2020-07-24] MEDS: BUMETANIDE 1 MG TABLET. PO SCH ×2 (08:34→16:31)
[2020-07-24] MEDS: DOXYCYCLINE HYCLATE 100 MG in IV DEXTROSE 5% 100ML 100 ML IV SCH ×2 (08:35→21:14)
[2020-07-24] MEDS: METOPROLOL SUCC 24HR ER 50 MG TAB.ER.24H. PO SCH (08:35)
[2020-07-24] MEDS: INSULIN LISPRO 300 UNITS/3 ML VIAL. SQ SCH ×3 (08:37→17:00)
[2020-07-24] MEDS: cefTRIAXone IV Push 1 GM VIAL. IVP SCH (08:42)
[2020-07-24] MEDS ORDERED: hydrALAZINE 20 MG/ML VIAL. IVP PRN (09:00)
--- NOTE | 2020-07-24 09:09 | PDOC ---
[employer] PROGRESS NOTE Date of Service DOS: DATE: 07/24/20 TIME: 09:00 Chief Complaint Chief Complaint A/P: Pneumonia - likely gram negative given his co-morbities, community acquired. Cont rocephin + doxy Weakness - PT to work with. Likely deconditioned from COVID 19 COVID 19 - with no significant hypoxia, mostly GI symptoms. Will cont supportive care. No indication for steroids or remdesivir. Due to his age and risk factors is high risk to have severe disease, however. Chronic diastolic/systolic CHF - appears compensated currently ANTHONY on CKD3 - baseline 1.6 to 1.8. Likely vasomotor nephropathy from acute pneumonia and covid 19. Given his CKD may be better served to change to Isosorbide + Hydralazine in lieu of losartan. Will d/w cardiology. Non ischemic cardiomyopathy. EF 35% status post AICD. Has outpatient heart failure follow-up with [facility] last seen 07/06/2020. On optimized medication regimen. HTN - will add prn Hydralaizine HLD - statin PAFIB - currently AV paced. On BB and warfarin for CVA prophylaxis AICD - [employer]-D: [employer] Hypothyroidism - on levothyroxine Morbid Obesity - counseled on diet and lifestyle modifications Hx of DVT - on warfarin for afib, will cont this therapy. INR supratherapeutic currently likely due to antibiotic therapy. DM2 - sliding scale, basal insulin Pulmonary HTN - likely CHF related (WHO Group II). Will cont optimized management. FEN - ADA cardiac diet PPX - warfarin FULL CODE Dispo - inpatient for above History of Present Illness History of Present Illness Mr. Barnes is a 64 year old male from [facility] (speaks [employer] invasive devices [place]) w/ PMHx DM2, right eye blindness, Afib, HTN, CHF with EF 35% who p/w shortness of breath, cough, weakness for 3 days prior to admission. Found with RLL infiltrate on CXR. Progressive cough. No O2 needs currently. Still profoundly weak. He is in good spirits. Communication is difficult. Cr down to 1.6 Vitals/I&O Vitals/I&O: Vital Signs Date Time Temp Pulse Resp B/P (MAP) Pulse Ox O2 Delivery O2 Flow Rate FiO2 07/24/20 08:35 69 162/80 07/24/20 04:59 97.2 19 98 Room Air 97.2 I & O 07/23/20 07/23/20 07/24/20 14:55 22:55 06:55 Intake Total 340 ml 250 ml 750 ml Output Total 0 ml Balance 340 ml 250 ml 750 ml Physical Exam General: Alert, Cooperative, No acute distress Heart: Regular rate (AV pacing), Other (distant heart sounds) Lungs: Clear Abdomen: Soft, No tenderness Extremities: No cyanosis, No edema, Normal pulses Skin: No rashes Labs Labs: Laboratory Tests Test 07/23/20 11:34 07/23/20 17:42 07/23/20 21:04 07/24/20 07:22 Glucose (Fingerstick) 231 mg/dL (70-99) 192 mg/dL (70-99) 175 mg/dL (70-99) 165 mg/dL (70-99) Assessment and Plan Assessmemt and Plan Problems Medical Problems: (1) Generalized weakness Status: Acute Comment Review of Relevant I have reviewed the following items katja (where applicable) has been applied. Medications: Current Medications Medications (Trade) Dose Ordered Sig/Giorgio Route PRN Reason Start Time Stop Time Status Last Admin Dose Admin Aspirin (Ecotrin) 81 mg DAILYWBKFT PO 07/23/20 10:30 07/24/20 08:33 Atorvastatin Calcium (Lipitor) 20 mg QHS PO 07/23/20 21:00 07/23/20 21:31 Amiodarone HCl (Cordarone) 200 mg DAILY PO 07/23/20 10:30 07/24/20 08:34 Metoprolol Succinate (Toprol Xl) 50 mg DAILY PO 07/23/20 10:30 07/24/20 08:35 Bumetanide (Bumex) 1 mg BID94 PO 07/23/20 16:00 07/24/20 08:34 Amlodipine Besylate (Norvasc) 5 mg 1X ONCE PO 07/23/20 10:15 07/23/20 10:18 DC 07/23/20 10:24 Warfarin Sodium (Coumadin - No Dose Today) 1 each 1X WARF ONCE MC 07/23/20 16:00 07/23/20 16:01 DC 07/23/20 15:43 Guaifenesin (Robitussin Dm) 10 ml PRN Q6HRS PRN PO COUGH 07/24/20 05:15 07/24/20 08:33 Justifications for Admission Other Justification RUDOLPH WINTER MD Jul 24, 2020 09:09
[2020-07-24] MEDS: LEVOTHYROXINE 25 MCG TABLET. PO SCH (09:23)
[2020-07-24 10:28] LABS: PROTHROMBIN TIME PATIENT 29.9 SEC (11.7-14.0)
[2020-07-24 11:00] VITALS: BP 155/70
[2020-07-24 15:00] VITALS: BP 156/76
[2020-07-24] MEDS ORDERED: WARFARIN 1 MG TABLET. PO ONE (16:00)
[2020-07-24 19:55] VITALS: BP 171/77
[2020-07-24] MEDS: INSULIN GLARGINE SYRINGE. SQ SCH (21:00)
[2020-07-24] MEDS: ATORVASTATIN CALCIUM 20 MG TABLET PO SCH (21:13)
[2020-07-24] MEDS ORDERED: CALCIUM CARBONATE 500 MG TAB.CHEW PO PRN (21:45)
[2020-07-24 23:31] VITALS: BP 163/80
[2020-07-25 03:39] VITALS: BP 153/67
[2020-07-25 07:00] VITALS: BP 155/74
[2020-07-25] MEDS: INSULIN LISPRO 300 UNITS/3 ML VIAL. SQ SCH (08:00)
[2020-07-25] MEDS: BUMETANIDE 1 MG TABLET. PO SCH (08:43)
[2020-07-25] MEDS: ASPIRIN ENTERIC COATED 81 MG TABLET.DR. PO SCH (08:43)
[2020-07-25] MEDS: AMIODARONE HCL 200 MG TABLET. PO SCH (08:43)
[2020-07-25] MEDS: LEVOTHYROXINE 25 MCG TABLET. PO SCH (08:43)
[2020-07-25] MEDS: METOPROLOL SUCC 24HR ER 50 MG TAB.ER.24H. PO SCH (08:44)
[2020-07-25] MEDS: DOXYCYCLINE HYCLATE 100 MG in IV DEXTROSE 5% 100ML 100 ML IV SCH (08:44)
[2020-07-25] MEDS: cefTRIAXone IV Push 1 GM VIAL. IVP SCH (08:44)
[2020-07-25] MEDS: guaiFENesin DM 200MG/20MG 10 ML SYRUP PO PRN (08:44)
[2020-07-25 11:00] VITALS: BP 136/76
[2020-07-25 11:03] LABS: PROTHROMBIN TIME PATIENT 32.3 SEC (11.7-14.0)
[2020-07-25] MEDS ORDERED: DOXY100T PO (11:25)
--- NOTE | 2020-07-25 11:29 | PDOC3 ---
Discharge Summary Visit Information Date of Admission: Jul 22, 2020 Date of Discharge: Jul 25, 2020 Final Diagnosis Pneumonia - likely gram negative given his co-morbities, community acquired. given rocephin + doxy deconditioned from COVID 19 COVID 19 - with no significant hypoxia, mostly GI symptoms. Will cont supportive care. No indication for steroids or remdesivir. Due to his age and risk factors is high risk to have severe disease, however. Chronic diastolic CHF - compensated ANTHONY on CKD3 - baseline 1.6 to 1.8. Likely vasomotor nephropathy from acute pneumonia and covid 19. Given his CKD may be better served to change to Isosorbide + Hydralazine in lieu of losartan. Will d/w cardiology. Non ischemic cardiomyopathy. EF 35% status post AICD. Has outpatient heart failure follow-up with [facility] last seen 07/06/2020. On optimized medication regimen. HTN - will add prn Hydralaizine HLD - statin PAFIB - currently AV paced. On BB and warfarin for CVA prophylaxis AICD - [employer]ER-D: [employer] Hypothyroidism - on levothyroxine, only 25 mcg Morbid Obesity - counseled on diet and lifestyle modifications Hx of DVT - on warfarin for afib, will cont this therapy. INR supratherapeutic currently likely due to antibiotic therapy. DM2 - sliding scale, basal insulin, obese, hs BMI is 44 Pulmonary HTN - likely CHF related (WHO Group II). Will cont optimized management. Problems Medical Problems: (1) Generalized weakness Status: Acute Brief Hospital Course Allergies Allergies Coded Allergies Type Severity Reaction Last Updated Verified No Known Drug Allergies 01/11/18 No Vital Signs Vital Signs Date Time Temp Pulse Resp B/P (MAP) Pulse Ox O2 Delivery O2 Flow Rate FiO2 07/25/20 08:44 69 155/74 07/25/20 08:00 Room Air 07/25/20 07:00 98.3 20 94 98.3 Lab Results Laboratory Tests Test 07/23/20 11:34 07/23/20 17:42 07/23/20 21:04 07/24/20 07:22 Glucose (Fingerstick) 231 mg/dL (70-99) 192 mg/dL (70-99) 175 mg/dL (70-99) 165 mg/dL (70-99) Test 07/24/20 08:55 07/24/20 12:13 07/24/20 17:52 07/24/20 20:51 Prothrombin Time 29.9 SEC (11.7-14.0) Prothromb Time International Ratio 2.8 (0.8-1.1) Glucose (Fingerstick) 227 mg/dL (70-99) 68 mg/dL (70-99) 90 mg/dL (70-99) Test 07/25/20 08:22 07/25/20 10:30 Glucose (Fingerstick) 129 mg/dL (70-99) Prothrombin Time 32.3 SEC (11.7-14.0) Prothromb Time International Ratio 3.1 (0.8-1.1) Laboratory Tests Test 07/24/20 12:13 07/24/20 17:52 07/24/20 20:51 07/25/20 08:22 Glucose (Fingerstick) 227 mg/dL (70-99) 68 mg/dL (70-99) 90 mg/dL (70-99) 129 mg/dL (70-99) Test 07/25/20 10:30 Prothrombin Time 32.3 SEC (11.7-14.0) Prothromb Time International Ratio 3.1 (0.8-1.1) Brief Hospital Course Mr. Barnes is a 64 old male, admit with weakness, cough and hypoxia. CXR showed pneumonia, COVID swab positive, fluid given, abx, he is on coumading and INR therapeutic, he did well, stronger at 2 days, off oxygen, Discharge Information Condition at Discharge: Improved Follow Up: Weeks Disposition/Orders: D/C to Home Scheduled Amiodarone Hcl (Amiodarone Hcl) 200 Mg Tablet, 1 TAB PO DAILY for , #90 Ref 1 (Reported) Entered as Reported by: ROMEL WILKINSON RN on 07/23/201410 Last Action: New Order on 07/23/201410 by ROMEL WILKINSON RN Aspirin (Aspirin) 81 Mg Tab.chew, 1 TAB PO HS for , #30 Ref 3 (Reported) Entered as Reported by: ROMEL WILKINSON RN on 07/23/201410 Last Action: New Order on 07/23/201410 by ROMEL WILKINSON RN Atorvastatin Calcium (Atorvastatin Calcium) 20 Mg Tablet, 1 TAB PO DAILY for , #30 Ref 5 (Reported) Entered as Reported by: ROMEL WILKINSON RN on 07/23/201410 Last Action: New Order on 07/23/201410 by ROMEL WILKINSON RN Bumetanide (Bumetanide) 1 Mg Tablet, 1 TAB PO BID for , #90 Ref 1 (Reported) Entered as Reported by: ROMEL WILKINSON RN on 07/23/201410 Last Action: New Order on 07/23/201410 by ROMEL WILKINSON RN Diclofenac Sodium (Voltaren) 100 Gm Gel..gram., 1 GM TP QID for pain for 30 Days, #1 Ref 0 (Reported) apply to affected area(s) Entered as Reported by: ROMEL WILKINSON RN on 07/23/201410 Last Action: New Order on 07/23/201410 by ROMEL WILKINSON RN Dorzolamide Hcl/Timolol Maleat (Cosopt Eye Drops) 10 Ml Drops, 1 DROP OD BID for for 30 Days, #10 Ref 0 (Reported) Entered as Reported by: ROMEL WILKINSON RN on 07/23/201410 Last Action: New Order on 07/23/201410 by ROMEL WILKINSON RN Dorzolamide/Timolol/Pf (Dorzolamide-Timolol 2%-0.5%) 1 Each Droperette, 1 EACH OD BID for , (Reported) Entered as Reported by: ROMEL WILKINSON RN on 07/23/201410 Last Action: New Order on 07/23/201410 by ROMEL WILKINSON RN Doxycycline Hyclate (Doxycycline Hyclate) 100 Mg Tablet, 1 TAB PO BID for pne umonia, #14 Prescribed by: DORON KAY on 07/25/20 1125 Ergocalciferol (Vitamin D2) (Vitamin D2) 1,250 Mcg Capsule, 1,250 MCG PO WEEKLY for , (Reported) Entered as Reported by: ROMEL WILKINSON RN on 07/23/201410 Last Action: New Order on 07/23/201410 by ROMEL WILKINSON RN Erythromycin Base (Erythromycin) 1 Gm Oint...g., 0.25 INCH OP QID for 5 Days Prescribed by: CALEB STOKES D.O. on 01/10/19 0523 Last Action: Reviewed on 07/23/201410 by ROMEL WILKINSON RN Gabapentin (Gabapentin ) 300 Mg Capsule, 300 MG PO TID for NEUROGENIC PAIN, (Reported) Entered as Reported by: ROMEL WILKINSON RN on 07/23/201410 Last Action: New Order on 07/23/201410 by ROMEL WILKINSON RN Insulin Detemir (Levemir) 100 Unit/1 Ml Vial, 30 UNIT SQ BID for , (Reported) Entered as Reported by: ROMEL WILKINSON RN on 07/23/201410 Last Action: New Order on 07/23/201410 by ROMEL WILKINSON RN Insulin Lispro (Humalog) 100 Unit/1 Ml Vial, 24 UNIT SQ TIDWMEALS for , (Reported) Entered as Reported by: ROMEL WILKINSON RN on 07/23/201410 Last Action: New Order on 07/23/201410 by ROMEL WILKINSON RN Levothyroxine Sodium (Levothyroxine Sodium) 25 Mcg Tablet, 1 TAB PO DAILY for , #30 Ref 5 (Reported) Entered as Reported by: ROMEL WILKINSON RN on 07/23/201410 Last Action: Continued on 07/24/20 0900 by RUDOLPH WINTER MD Meclizine Hcl (Meclizine Hcl) 25 Mg Tablet, 1 TAB PO PRN TID for , #30 (Reported) Entered as Reported by: ROMEL WILKINSON RN on 07/23/201410 Last Action: New Order on 07/23/201410 by ROMEL WILKINSON RN Metoprolol Succinate (Metoprolol Succinate ( Xl )) 25 Mg Tab.er.24h, 1 TAB PO DAILY for , #30 Ref 5 (Reported) Entered as Reported by: ROMEL WILKINSON RN on 07/23/201410 Last Action: New Order on 07/23/201410 by ROMEL WILKINSON RN Pantoprazole Sodium (Protonix ) 40 Mg Tablet.dr, 40 MG PO DAILYAC for GERD, (Reported) Entered as Reported by: ROMEL WILKINSON RN on 07/23/201410 Last Action: New Order on 07/23/201410 by ROMEL WILKINSON RN Spironolactone (Spironolactone) 25 Mg Tablet, 1 TAB PO DAILY for , #30 Ref 5 (Reported) Entered as Reported by: XIMENA NAVARRO RN on 09/01/181309 Last Action: HELD on 07/23/20 101 by ANDRES KING Warfarin Sodium (Warfarin Sodium) 3 Mg Tablet, 3 MG PO HS for , #30 (Reported) Entered as Reported by: ROMEL WILKINSON RN on 07/23/201410 Last Action: New Order on 07/23/201410 by ROMEL WILKINSON RN Discontinued Medications Furosemide (Furosemide) 20 Mg Tablet, 60 MG PO QMWF for , (Reported) Entered as Reported by: XIMENA NAVARRO RN on 09/01/181309 Last Action: Discontinued on 07/23/20 101 by ANDRES KING Patient Instructions Patient Instructions pt seen face to face some language barrier, but this got better as he felt better he is hard of hearing, Justicifation of Admission Dx: Justifications for Admission: Justification of Admission Dx: Yes (COVId, pneumonia, ) DORON KAY MD Jul 25, 2020 11:29
--- NOTE | 2020-07-25 13:08 | NUR ---
Pharmacy Warfarin Dosing Note S:Pharmacy consulted to assist with anticoagulation therapy started with target INR: 2 -3 O:TAMICA RAMIREZ is a 64 year old M with Atrial Fibrillation Recurrent VTE LABS: Last INR: 3.1 Last HGB: 11.8 Last HCT: 36 Last PLT: 197 Last dose of 1 mg given on 07/24/20 at 1631 Previous Regimen: Vitamin K given: Drug Interaction Changes: Ongoing Drug Interactions: A:INR of 3.1 is above desired range. Target range for this patient is: 2 -3 P: Warfarin dose: Hold Prior to Discharge Bridge Therapy: None Next INR due TOMORROW Pharmacy anticoagulation service will continue to follow. LOGAN PINZON [facility], 07/25/20 [id number]
--- NOTE | 2020-07-25 13:23 | NUR ---
Discharge Note: TAMICA RAMIREZ Discharge instructions and discharge home medications reviewed with Patient and a copy given. All questions have been answered and understanding verbalized. The following instructions and handouts were given: PNA Discontinued lines and drains: Peripheral IV intact. Patient discharged to Home or Self Care with Self via Wheelchair
--- NOTE | 2020-07-26 16:32 | EKG ---
[facility] [address] [place] [address] Test Date: 2020-07-22 Test Time: 20:29:55 Pat Name: TAMICA RAMIREZ Department: Room: Gender: M Materials Mgmt Tech: : 1955 Requested By: HELEN DEGROOT Order Number: [id number] Reading MD: Measurements Intervals [place] Rate: 60 P: -90 LA: 100 QRS: -64 QRSD: 172 T: 32 QT: 552 QTc: 552 Interpretive Statements SINUS RHYTHM ABNORMAL LEFT AXIS DEVIATION LEFT ANTERIOR FASCICULAR BLOCK NON SPECIFIC INTRAVENTRICULAR BLOCK QRS(T) CONTOUR ABNORMALITY CONSISTENT WITH ANTEROSEPTAL INFARCT AGE UNDETERMINED CONSIDER INFERIOR MYOCARDIAL DAMAGE ABNORMAL ECG RI6.01 No previous ECG available for comparison
== END 2020-07-25 13:32 | disposition home or self-care (01) | DRG 871 ==
LOC: ER 19:39 → ED HOLD 23:36 → 1 WEST ICU 07-23 01:22 → 2 SOUTH 07-23 11:30
PROVIDERS: ADMIT Internal Medicine; ATTEND Internal Medicine
DX: A41.9 Sepsis, unspecified organism (principal); I50.43 Acute on chronic combined systolic (congestive) and diastolic (congestive) heart failure; J15.6 Pneumonia due to other Gram-negative bacteria; N17.0 Acute kidney failure with tubular necrosis; U07.1 COVID-19; I13.0 Hypertensive heart and chronic kidney disease with heart failure and stage 1 through stage 4 chronic kidney disease, or unspecified chronic kidney disease; I42.8 Other cardiomyopathies; Z68.42 Body mass index [BMI] 45.0-49.9, adult; H54.61 Unqualified visual loss, right eye, normal vision left eye; H91.90 Unspecified hearing loss, unspecified ear; E03.9 Hypothyroidism, unspecified; E11.22 Type 2 diabetes mellitus with diabetic chronic kidney disease; E66.01 Morbid (severe) obesity due to excess calories; I48.0 Paroxysmal atrial fibrillation; E78.5 Hyperlipidemia, unspecified; N18.30 Chronic kidney disease, stage 3 unspecified; I27.20 Pulmonary hypertension, unspecified; R09.02 Hypoxemia; Z86.718 Personal history of other venous thrombosis and embolism; Z95.810 Presence of automatic (implantable) cardiac defibrillator; Z79.01 Long term (current) use of anticoagulants; Z79.4 Long term (current) use of insulin; Z79.899 Other long term (current) drug therapy; Z82.3 Family history of stroke
CPT/HCPCS: 36415; 70450; 71045; 80053; 80307; 81001; 82962; 83605; 83735; 83880; 84145; 84443; 84484; 85007; 85025; 85610; 85730; 87086; 93005; 96365; 96366; 96368; 96375; 99285; J0456; J0696; J1100; J1815; J3490; J7030; J7060; P9045; U0003; G0378

== ENCOUNTER 2021-06-25 22:08 | Emergency (ER) | payer OTHER ==
[~2021-06-25] VITALS: Ht 180.3 cm; Wt 136.4 kg
[~2021-06-25 22:08] MED LIST changes: +AMIO200T53 PO; +ASPI-630 PO; +ATOR20TA58 PO; +BUME1TAB3 PO; +DICL100G54 TP; +DORZ10DR21 OD; +DORZ1DRO7 OD; +DOXY100T PO; +ERGO500089 PO; +INSU100V13 SQ; +INSU100V6 SQ; +LEVO25TA4 PO; +MECL-75 PO; +METO-239 PO; +PANT40TA77 PO; +WARF3TAB50 PO
--- NOTE | 2021-06-26 00:06 | PHYS DOC ---
Past Medical History Past Medical History: A-Fib, CHF, Diabetes-Type II, Glaucoma, Hypertension, [place] Additional Past Medical Histor: R. EYE BLIND, LAC COURTE OREILLES Past Surgical History: No Surgical History Additional Past Surgical Histo: R eye Smoking Status: Never Smoker Alcohol Use: None Drug Use: None General Adult EDM: Chief Complaint: WEAKNESS/GENERALIZED HPI: HPI: Patient is a 65 year old male who presents with report of subjective generalized fatigue and weakness. He denies focal weakness, numbness or tingling. He denies chest pain, cough, dyspnea. He denies headache, dizziness, vertigo. He denies fall or injury. He denies neck pain or back pain. He denies abdominal pain, nausea, vomiting. He reported one episode of loose stool. He does report that his abdomen feels bloated but is not painful. He has been eating and drinking normally. He denies fevers or chills. He has not been sleeping very well and admits that he is tired, he would like to sleep here today in the ER. Review of Systems: Review of Systems: Constitutional: Denies fever or chills. [] Eyes: Denies change in visual acuity. [] HENT: Denies nasal congestion or sore throat. [] Respiratory: Denies cough or shortness of breath. [] Cardiovascular: Denies chest pain or edema. [] GI: Denies abdominal pain, nausea, vomiting, bloody stools or diarrhea. [] : Denies dysuria. [] Musculoskeletal: Denies back pain or joint pain. [] Integument: Denies rash. [] Neurologic: Denies headache, focal weakness or sensory changes. [] Endocrine: Denies polyuria or polydipsia. [] Lymphatic: Denies swollen glands. [] Psychiatric: Denies depression or anxiety. [] Heart Score: C/O Chest Pain: No Risk Factors: Risk Factors: DM, Current or recent (<one month) smoker, HTN, HLP, family history of CAD, obesity. Risk Scores: Score 0 - 3: 2.5% MACE over next 6 weeks - Discharge Home Score 4 - 6: 20.3% MACE over next 6 weeks - Admit for Clinical Observation Score 7 - 10: 72.7% MACE over next 6 weeks - Early Invasive Strategies Allergies: Allergies: Allergies Coded Allergies Type Severity Reaction Last Updated Verified No Known Drug Allergies 01/11/18 No Physical Exam: PE: Constitutional: Well developed, well nourished, no acute distress, non-toxic appearance. [] HENT: Normocephalic, atraumatic, oropharynx is patent and clear, mucous membranes are moist. TMs are clear bilaterally. Eyes: Chronic opacity of the right eye. Left eye demonstrates a rounded reactive pupil. No scleral icterus, no conjunctival injection Neck: Normal range of motion, no tenderness, supple, no stridor. Trachea is midline, no JVD, no meningismus Cardiovascular:Heart rate regular rhythm, +2 radial and +2 posterior tibial pulses bilaterally Lungs & Thorax: Bilateral breath sounds clear to auscultation [] Abdomen: Abdomen is obese, soft, nondistended, nontender to palpation, no palpable masses organomegaly. No audible bruit. No palpable pulsatile mass. No flank abdominal ecchymoses. No fluid wave. Skin: Warm, dry, no erythema, no rash. There is venous stasis dermatitis on the bilateral lower extremities. No open wounds, no warmth or erythema. Back: No tenderness, no CVA tenderness. [] Extremities: No tenderness, no cyanosis, no clubbing, ROM intact, bilateral, symmetric 1+ lower extremity edema. No calf tenderness. No limb deformity. Neurologic: He is awake, alert, oriented x3, cranial nerves II through XII grossly intact, 5 out of 5 motor strength all 4 extremities. Sensation is grossly intact. Speech is clear and fluent. Psychologic: Affect is flat. He is cooperative. [] EKG: EKG: EKG is interpreted at 0011 Rhythm is paced Rate is 64 bpm No STEMI No acute changes from previous EKG on 05/26/2019 Radiology/Procedures: Radiology/Procedures: IMAGING REPORT Signed PATIENT: TAMICA RAMIREZ ACCOUNT: [id number] : 1955 LOCATION: ER AGE: 65 SEX: M EXAM STATUS: REG ER ORD. PHYSICIAN: NUZHAT SHABAZZ DO REASON: weakness PROCEDURE: CT HEAD WO CONTRAST CT head without contrast PQRS statement: CT scans at this facility use dose reduction including either automated exposure control, iterative reconstructions, and /or weight based radiation dosing via mA and kV modification when appropriate to reduce radiation dose to as low as reasonably achievable. HISTORY: Weakness. COMPARISON: CT head July 22, 2020 FINDINGS: Mild enlargement of the subarachnoid spaces an anatomic variant, stable. No intracranial hemorrhage, mass, hydrocephalus or infarction. 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 Left orbit, mastoids and bones are unremarkable. IMPRESSION: No acute abnormality. Stable exam as described above. Electronically signed by: Josefina Interiano MD (06/26/2021 1:34 AM) [facility] DICTATED and SIGNED BY: JOSEFINA INTERIANO MD DATE: 06/26/21 [id number] IMAGING REPORT Signed PATIENT: TAMICA RAMIREZ ACCOUNT: [id number] : 1955 LOCATION: ER AGE: 65 SEX: M EXAM STATUS: REG ER ORD. PHYSICIAN: NUZHAT SHABAZZ DO REASON: weakness PROCEDURE: PORTABLE CHEST 1V AP chest x-ray HISTORY: Weakness. COMPARISON: Chest x-ray July 23, 2020 FINDINGS: Cardiomegaly is stable. Implanted cardiac device again demonstrated. No pneumothorax, pulmonary opacities or pleural effusions. Bones are unremarkable IMPRESSION: No acute process. Cardiomegaly is stable. Electronically signed by: Josefina Interiano MD (06/26/2021 3:49 AM) [facility] DICTATED and SIGNED BY: JOSEFINA INTERIANO MD DATE: 06/26/21 [id number] Course & Med Decision Making: Course & Med Decision Making Pertinent Labs and Imaging studies reviewed. (See chart for details) I have discussed the findings, differential diagnosis and plan of care with the patient and his family. His creatinine is elevated, though this appears to be actually improved from his previous laboratory exams. Serial troponins do not indicate acute coronary ischemia. No acute ischemia on EKG. Imaging studies are unremarkable. He is resting comfortably, manifested no evidence of distress. He has no physical pain or complaints other than being tired. He has been sleeping throughout much of his ED stay. His vital signs are stable. There is no indication for further imaging, invasive exams or admission at this time. I recommend he contact his PCP on Sunday to arrange for close follow-up. Return precautions are given. Yoel Disclaimer: Dragon Disclaimer: This electronic medical record was generated, in whole or in part, using a voice recognition dictation system. Departure Departure Impression: Primary Impression: Subjective weakness Additional Impression: Fatigue Qualified Codes: R53.83 - Other fatigue Disposition: HOME / SELF CARE / HOMELESS Condition: STABLE Referrals: UNKNOWN PCP NAME (PCP) Patient Instructions: Fatigue Additional Instructions: Return to the ER for chest pain, shortness of breath, abdominal pain, vomiting, fever 100.4 or higher, focal weakness, if you are acutely injured or sustained any trauma, if you pass out or for any other concerns. Sure you stay well- hydrated, drink plenty of water. Get plenty of rest. Follow-up with your primary care doctor, I recommend calling on Sunday to arrange for follow-up. NUZHAT SHABAZZ DO Jun 26, 2021 00:06
[2021-06-26 00:48] LABS: BASO % 1 % (0-3); EOS # 0.1 x10^3/uL (0.0-0.7); EOS % 2 % (0-3); HEMATOCRIT 39.5 % (39.0-53.0); HEMOGLOBIN 13.1 g/dL (13.0-17.5); LYMPH # 1.8 x10^3/uL (1.0-4.8); LYMPH % 23 % (24-48); MEAN CORPUSCULAR HEMOGLOBIN 30 pg (25-35); MEAN CORPUSCULAR HGB CONC 33 g/dL (31-37); MEAN CORPUSCULAR VOLUME 89 fL (79-100); MONO # 0.6 x10^3/uL (0.0-1.1); MONO % 8 % (0-9); NEUT % 67 % (31-73); PLATELET COUNT 236 x10^3/uL (140-400); RED BLOOD COUNT 4.43 x10^6/uL (4.30-5.70); RED CELL DISTRIBUTION WIDTH 15.1 % (11.5-14.5); WHITE BLOOD COUNT 7.6 x10^3/uL (4.0-11.0)
[2021-06-26 00:57] LABS: PROTHROMBIN TIME PATIENT 29.7 SEC (11.7-14.0)
[2021-06-26 01:24] LABS: CREATININE 1.7 mg/dL (0.7-1.3); GFR 40.5; POTASSIUM 3.4 mmol/L (3.5-5.1)
[2021-06-26 01:29] LABS: ALBUMIN 3.7 g/dL (3.4-5.0); ALBUMIN/GLOBULIN RATIO 0.7 (1.0-1.7); MAGNESIUM 2.4 mg/dL (1.8-2.4); PHOSPHORUS 3.5 mg/dL (2.6-4.7); TOTAL BILIRUBIN 1.2 mg/dL (0.2-1.0); TOTAL PROTEIN 8.7 g/dL (6.4-8.2)
--- NOTE | 2021-06-26 01:36 | RAD ---
CT head without contrast PQRS statement: CT scans at this facility use dose reduction including either automated exposure cont rol, iterative reconstructions, and /or weight based radiation dosing via mA and kV modification when appropriate to reduce radiation dose to as low as reasonably achievable. HISTORY: Weakness. COMPARISON: CT head July 22, 2020 FINDINGS: Mild enlargement of the subarachnoid spaces an anatomic variant, stable. No intracranial he morrhage, mass, hydrocephalus or infarction. 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 Left orbit, mastoids and bones are unremarkable. IMPRESSION: No acute abnormality. Stable exam as described above. Electronically signed by: Attila Kelley MD (06/26/2021 1:34 AM) [facility]
[2021-06-26 01:58] LABS: BILIRUBIN,URINE NEGATIVE (NEG); CLARITY,URINE CLEAR; COLOR,URINE YELLOW; NITRITE,URINE NEGATIVE (NEG); PH,URINE 5.5 (<5.0-8.0); PROTEIN,URINE NEGATIVE (NEG-TRACE); UROBILINOGEN,URINE 0.2 mg/dL (0.2 mg/dL)
[2021-06-26 02:05] LABS: BACTERIA,URINE 0 /HPF (0-FEW); RBC,URINE 0 /HPF (0-2); WBC,URINE RARE /HPF (0-4)
--- NOTE | 2021-06-26 02:09 | EKG ---
[facility] [address] [place] [address] Test Date: 2021-06-26 Test Time: 00:10:02 Pat Name: TAMICA RAMIREZ Department: Room: Gender: M Ticket Manager: : 1955 Requested By: NUZHAT SHABAZZ Order Number: [id number] Reading MD: Zhang Magaña MD Measurements Intervals [place] Rate: 64 P: 0 VT: 194 QRS: 232 QRSD: 210 T: 31 QT: 530 QTc: 546 Interpretive Statements A-V PACED Electronically Signed On 06-27-2021 9:28:03 ELECTROLYSIS OPERATOR by Zhang Magaña MD
[2021-06-26 02:30] VITALS: BP 145/75
--- NOTE | 2021-06-26 03:52 | RAD ---
AP chest x-ray HISTORY: Weakness. COMPARISON: Chest x-ray July 23, 2020 FINDINGS: Cardiomegaly is stable. Implanted cardiac device again demonstrated. No pneumothorax, pulmo nary opacities or pleural effusions. Bones are unremarkable IMPRESSION: No acute process. Cardiomegaly is stable. Electronically signed by: Attila Kelley MD (06/26/2021 3:49 AM) [facility]
--- NOTE | 2021-06-27 17:14 | NUR ---
IP: Attempted to contact pt concerning covid results. No answer, left a voicemail to return the call.
== END 2021-06-26 04:20 | disposition home or self-care (01) ==
LOC: ER 22:08
DX: R53.83 Other fatigue (principal); Z20.822 Contact with and (suspected) exposure to COVID-19; R53.1 Weakness; R19.7 Diarrhea, unspecified; R14.0 Abdominal distension (gaseous); I48.91 Unspecified atrial fibrillation; I11.0 Hypertensive heart disease with heart failure; I50.9 Heart failure, unspecified; E11.39 Type 2 diabetes mellitus with other diabetic ophthalmic complication; H40.9 Unspecified glaucoma; I25.2 Old myocardial infarction
CPT/HCPCS: 36415; 70450; 71045; 80053; 81001; 82550; 83605; 83690; 83735; 83880; 84100; 84484; 85025; 85610; 85730; 87426; 93005; 99285; U0003; U0005